=== PATIENT | female | born 1995 | race Caucasian/White ===

== ENCOUNTER → 2018-08-22 10:13 | Outpatient (CLI) | payer BC, SELFPAY ==
--- NOTE | 2018-08-22 11:04 | US_ITS ---
US OB transvaginal: INDICATION: Early OB for dates ITS.REASON: US OB Dates ORDERING PHYSICIAN: Jyoti Anderson MD PATIENT AGE: 22 years TECHNIQUE: Transvaginal pelvic ultrasound/cc COMPARISON: No previous relevant studies. FINDINGS: Difficult imaging due to body habitus Single viable intrauterine gestation. .. pole identified with heart rate = 110 at this point. Yolk Sac is identified along with small early gestation. suggestion of a minimal minimal subchorionic fluid collection, hematoma adjacent to the gestational sac. This hypoechoic fluid collection area measuring up to 2.5 cm length X 1.9 centimeter AP x 1 cm. . [place]-rump length = 0.71 = 6 weeks 5 day. Heart rate = 110 bpm. Documented Right ovary: 3 cm x 2.2 x 2.6 cm Left ovary not seen with transvaginal scanning but visualized with transabdominal scanning: Measures 3.9 cm x 3.2 x 2.5 cm. IMPRESSION ... Single viable intrauterine gestation. ... 6 week 5 day [place]-rump length /Average Ultrasound Age ... Hypoechoic fluid collection overlying this gestational sac, most consistent with a prior subchorionic hemorrhage Technologist noted technically difficult study due to body habitus
== END ==
PROVIDERS: PCP Family Medicine; Visit Provider Obstetrics & Gynecology
DX: O26.841 Uterine size-date discrepancy, first trimester (principal)
CPT/HCPCS: 76817

== ENCOUNTER → 2018-09-11 12:52 | Outpatient (CLI) | payer BC, SELFPAY ==
[2018-09-11 13:59] LABS: Basophils % 0.3 % (0.1-2.0); Eosinophils # 0.2 K/mm3 (0.0-0.4); Eosinophils % 2.3 % (0.1-12.0); Hematocrit 37.5 % (37.0-47.0); Hemoglobin 12.3 g/dL (12.2-16.2); Lymphocytes # 1.6 K/mm3 (0.7-4.5); Lymphocytes % 24.4 % (10-50); Mean Corpuscular HGB Conc 32.8 g/dL (31.8-35.4); Mean Corpuscular Hemoglobin 27.8 pg (27.0-31.2); Mean Corpuscular Volume 84.9 fl (81-99); Mean Platelet Volume 7.3 fl (7.4-10.4); Monocytes # 0.3 K/mm3 (0.1-1.0); Monocytes % 4.8 % (1.7-9.3); Neutrophils # 4.6 K/mm3 (1.8-7.8); Neutrophils % 68.3 % (37.0-80.0); Platelet Count 311 K/mm3 (142-424); Red Blood Count 4.41 M/mm3 (4.20-5.40); Red Cell Distribution Width 14.2 % (11.5-17.5); White Blood Count 6.8 K/mm3 (4.8-10.8)
[2018-09-12 06:13] LABS: HIV Screen 4th Generation wRfx Non Reactive (Non Reactive)
[2018-09-13 06:42] LABS: Hepatitis B Surface Antigen Negative (Negative); Hepatitis C Antibody <0.1 s/co ratio (0.0-0.9); Rubella Antibodies, IgG 2.14 index (Immune >0.99)
[2018-09-13 06:43] LABS: Rapid Plasma Reagin Ab Titer Non Reactive (NonRea<1:1)
== END ==
PROVIDERS: Visit Provider Obstetrics & Gynecology
DX: Z34.90 Encounter for supervision of normal pregnancy, unspecified, unspecified trimester (principal)
CPT/HCPCS: 36415; 85025; 86592; 86703; 86762; 86850; 87340; 87380; G0432

== ENCOUNTER → 2018-10-09 11:35 | Outpatient (CLI) | payer BC, SELFPAY | PROVIDERS: Visit Provider Obstetrics & Gynecology | DX: Z34.90 Encounter for supervision of normal pregnancy, unspecified, unspecified trimester (principal) | CPT/HCPCS: 36415 ==

== ENCOUNTER → 2018-11-27 14:20 | Outpatient (CLI) | payer BC, SELFPAY ==
--- NOTE | 2018-11-27 14:22 | US_ITS ---
US OB /maternal detail: INDICATION: ITS.REASON: US OB Complete ORDERING PHYSICIAN: Jyoti Anderson MD PATIENT AGE: 23 years TECHNIQUE: ultrasound transabdominal scanning. COMPARISON: No previous relevant studies. FINDINGS: Single viable intrauterine gestation. Breech position. Placenta: Anterior placenta grade 1. There is average amount fluid. The cervix appears satisfactory. Closed and measuring 3.5 cm in length. Complete survey performed and was unremarkable on the submitted images as in PACS. No discrete anomalies identified on survey imaging by technologist. Active fetus. Three-vessel cord with satisfactory umbilical cord insertion. 4- chamber heart noted. Survey of brain & ventricles unremarkable. Face and neck survey unremarkable. Diaphragm and chest views unremarkable. Abdomen: Both kidneys noted and unremarkable. Stomach noted and satisfactory. Spine: Survey of the spine satisfactory with no anomalies identified nor imaged. Both arms and legs noted. Amniotic Fluid: Adequate. Maternal adnexa: No significant findings. Measurements: Average ultrasound age 20 weeks 6 days. Gestational Age 20 weeks 5 days. Estimated due date by ultrasound age 1104/10/2019. Estimated weight 372 grams. BPD = 21 weeks 0 days OFD = 21 weeks 6 days HC = 20 weeks 5 days AC = 21 weeks 0 days FL = 20 weeks 4 days Growth Percentile= 44% Heart Rate = 147 Cerebellum = 20 weeks 5 days Humerus = 21 weeks 3 days HC/AC is 1.17. CI is 75%. FL/BPD is 67%. FL/AC is 21%. IMPRESSION: There is a single live fetus which is in breech presentation with an average ultrasound age of 20 weeks and 6 days. All parameters correlate with no obvious anomalies. Please see above for detail.
== END ==
PROVIDERS: PCP Physician Assistant; Visit Provider Obstetrics & Gynecology
DX: Z36.0 Encounter for antenatal screening for chromosomal anomalies (principal)
CPT/HCPCS: 76811

== ENCOUNTER → 2019-01-13 10:17 | Outpatient (CLI) | payer BC, SELFPAY ==
[2019-01-13 10:41] LABS: Glucose,Fasting 92 mg/dL (60-105)
[2019-01-13 13:42] LABS: Glucose 1 Hour 95 mg/dL (74-106)
== END ==
PROVIDERS: Visit Provider Obstetrics & Gynecology
DX: Z34.90 Encounter for supervision of normal pregnancy, unspecified, unspecified trimester (principal)
CPT/HCPCS: 36415; 82951

== ENCOUNTER → 2019-03-18 17:30 | Outpatient (CLI) | payer BC, SELFPAY | PROVIDERS: Visit Provider Obstetrics & Gynecology | DX: Z34.90 Encounter for supervision of normal pregnancy, unspecified, unspecified trimester (principal) | CPT/HCPCS: 86403 ==

== ENCOUNTER → 2019-03-24 14:01 | Outpatient (CLI) | payer BC, SELFPAY ==
--- NOTE | 2019-03-24 14:03 | US_ITS ---
PROCEDURE: US OB FOLLOW UP CLINICAL INDICATION: US OB Growth ANGIE- LGA Large for gestational age COMPARISON: OBFEMAT US OB /maternal detail from 11/27/2018 FINDINGS: There is a single live fetus which is in cephalic presentation. heart body motion noted. FHR is 146 BPM. Average ultrasound age is 37 weeks 4 days with an estimated weight of 3060 g. Which is 47 percentile. BPD 38 weeks 3 days, HC 38 weeks 3 days, AC 36 weeks 2 days, FL 37 weeks 0 days. All parameters correlate. The placenta is anterior and grade 2. ANGIE is 13 cm. IMPRESSION: Live IUP which is in cephalic presentation at 37 weeks 4 days with an estimated weight is 3060 g which is 47 percentile. Normal ANGIE of 12 cm. Anterior grade 2 placenta Dictated by: Ernie Remy MD 03/24/2019 16:55 Electronically signed by Ernie Remy MD in [place] 03/24/2019 16:55
== END ==
PROVIDERS: PCP Family Medicine; Visit Provider Obstetrics & Gynecology
DX: O36.60X0 Maternal care for excessive fetal growth, unspecified trimester, not applicable or unspecified (principal)
CPT/HCPCS: 76816

== ENCOUNTER 2019-04-06 06:13 | Inpatient (IN) ==
[2019-04-06 06:51] LABS: Basophils % 0.4 % (0.1-2.0); Eosinophils # 0.1 K/mm3 (0.0-0.4); Eosinophils % 0.9 % (0.1-12.0); Hematocrit 34.4 % (37.0-47.0); Hemoglobin 10.6 g/dL (12.2-16.2); Lymphocytes # 1.8 K/mm3 (0.7-4.5); Lymphocytes % 21.2 % (10-50); Mean Corpuscular HGB Conc 30.9 g/dL (31.8-35.4); Mean Corpuscular Volume 80.6 fl (81-99); Mean Platelet Volume 9.5 fl (7.4-10.4); Monocytes # 0.4 K/mm3 (0.1-1.0); Monocytes % 4.9 % (1.7-9.3); Neutrophils # 6.3 K/mm3 (1.8-7.8); Neutrophils % 72.6 % (37.0-80.0); Platelet Count 289 K/mm3 (142-424); Red Blood Count 4.27 M/mm3 (4.20-5.40); Red Cell Distribution Width 16.3 % (11.5-17.5); White Blood Count 8.6 K/mm3 (4.8-10.8)
[2019-04-06 06:58] LABS: Calcium 8.9 mg/dL (8.5-10.1)
--- NOTE | 2019-04-06 07:25 | Progress Note ---
[facility] Anesthesia Checklist - Structural Data Admitted From: Inpatient Planned Operative Procedure/s: c/section Consent for Planned Operative Procedure(s) Verified: Yes - Airway Assessment C-Spine Mobility Assessed: Yes TMJ Mobility Assessed: Yes Dentition: Good Dentition - Neurological Assessment Level of Consciousness: Awake, Alert, Appropriate - Anesthesia Plan Anesthesia Risk discussed: Yes Anesthesia Plan: Verified ASA Class: III Anesthesia Type: Spinal [facility] History I have reviewed the patient's past medical history: Yes Medical History: Reports:: Anxiety, Depression *Have you ever received a pneumonia vaccine?: No *Have you received a flu vaccine this season?: Yes Other Medical History: Reports: Hypothyroidism, Other Anesthesia experience/problems:: none Other Surgeries: Yes: Amputation: No Fractures: No - *Social History Smoking Status: Former smoker Alcohol Intake: never Alcohol Intake Frequency:: holidays/special occasions only Substance Use Type: denies use *Occupational Status:: unemployed, student Housing: house Household Members: family *Travel in the last 8 weeks: Inside the [place] - Psychiatric History Pschychiatric History:: Reports:: Anxiety, Depression, Post Traumatic Stress Disorder Family Hx:: Cancer, Diabetes, Hypertension, Asthma, Anemia
[2019-04-06 08:16] LABS: Microscopic, Urine URINE MICROSCOPIC (MICROSCOPIC)
[2019-04-06 08:19] LABS: Appearance,Urine CLEAR (Clear); Bilirubin,Urine Negative (Negative); Blood, Urine Negative (Negative); Color,Urine YELLOW (Yellow); Glucose,Urine (UA) Negative (Negative); Ketones,Urine 1+ (Negative); Leukocyte Esterase,Urine Negative (Negative); PH,Urine 7.5 (5.0-8.5); Protein,Urine Negative (Negative); Urobilinogen,Urine 0.2 EU/dl (0.2)
[2019-04-06 08:27] LABS: Amphetamine/Metha Screen,Urine Negative ng/mL (<1000); Barbiturates Screen,Urine Negative ng/mL (<200); Benzodiazepines Screen,Urine Negative ng/mL (<200); Cannabinoid Screen,Urine Negative ng/mL (<50); Cocaine Screen,Urine Negative ng/mL (<300); Methadone Screen,Urine Negative ng/mL (<300); Opiate Screen,Urine Negative ng/mL (<300); Phencyclidine Screen,Urine Negative ng/mL (<25)
[2019-04-06 08:32] LABS: Bacteria,Urine 1+ /lpf; Mucus,Urine 2+ /lpf; WBC,Urine Occasional #/hpf (0-3)
--- NOTE | 2019-04-06 09:07 | Progress Note ---
[facility] Anesthesia Record Part I Intake, IV Amount: 1,500 Estimated blood loss (mL): 700 Urine output (mL): 400 Blood Pressure: 95/54 SaO2: 99 Pulse Rate: 83 Respiratory Rate: 12 Temperature: 97.5 F Patient is:: Awake, Stable Stable to PACU at:: 09:00
--- NOTE | 2019-04-06 09:08 | Operative Note ---
Date of procedure: 04/06/19 Pre-op Diagnosis:: 1. 39 wk gestation 2. Previous CS 3. Maternal Obesity 4. Undesired fertility Post-op Diagnosis:: 1. 39 wk gestation 2. Previous CS 3. Maternal Obesity 4. Undesired fertility Procedure performed:: 1. Repeat Low Transverse C Section 2. Bilateral tubal ligation Surgeon:: Jyoti Anderson MD Frame Fixer(s):: Arely Walsh RN HYDRODYNAMICS TEACHER:: Catarino Hickey Anesthesia: spinal Estimated blood loss (mL): 700 Operative findings:: Vigorous liveborn male infant with apgars 8 & 9 Nuchal cord x 1 Grossly normal uterus, ovaries and fallopian tubes Operative note:: The patient was taken to the OR and spinal was administered without difficulty. She was prepped and draped in normal sterile fashion. A pfannenstiel skin incision was made with the scalpel and carried down to the fascia. The fascia was incised in the midline and sharply dissected off the rectus muscles. The muscles were in the midline and the peritoneum was entered sharply and extended bluntly. The To-O self retaining retractor was placed in the abdomen and a bladder flap was created. The uterus was incised in the lower uterine segment in a transverse fashion and extended bluntly. Amniotomy was performed and clear fluid noted. The infant was delivered in controlled fashion, without complication or shoulder dystocia. The infant was vigorous at and handed to awaiting pediatricians for evaluation after cord clamped and cut. Cord blood was collected and a cord segment was preserved. The placenta was manually extracted and noted to be intact. The uterus was repaired with 0- vicryl in a running/locked fashion. The fallopian tubes were sequentially gra sped with a terrence, elevated and a large knuckle of tube tied off. The knuckle portion was excised and the ends of the remaining tube segments cauterized. The peritoneum was closed with 2-0 vicryl in a running fashion. The fascia was closed with #1 vicryl in a running fashion. The subcutaneous fat was closed with 2-0 vicryl in an interrupted fashion. The skin was closed with rocío. The patient tolerated the procedure well. Sponge, lap, needle and instrument counts were correct x 2. She was taken to PACU awake and in stable condition. Condition: stable Disposition: PACU Specimens:: segments bilateral fallopian tubes Complications:: None
--- NOTE | 2019-04-06 09:08 | Progress Note ---
[facility] Anesthesia Record Part II Discharge Time: 09:30 Destination: Obstetric PACU nurse assessment reviewed?: Yes Patient Condition:: Good Anesthesia Complications:: None Swallowing reflex intact?: Yes Cyanosis?: No
--- NOTE | 2019-04-06 10:07 | Pharmacy Consult Notes ---
[facility] Pharmacy VTE Monitoring - Patient Demographics Admission date: 04/06/19 Report Date: 04/06/19 Time: 10:07 Allergies/Adverse Reactions: Patient Allergies No Known Allergies Allergy (Verified 03/26/19 14:29) Height: 1.52 m Weight: 137.892 kg Patient Problems: Current Active Problems 39 weeks gestation of (Acute) Obesity complicating (Acute) Request for sterilization (Acute) Previous section (Acute) - VTE Risk Labs: VTE Related Lab Results Hgb 10.6 g/dL (12.2-16.2) L 04/06/19 06:35 Hct 34.4 % (37.0-47.0) L 04/06/19 06:35 Plt Count 289 K/mm3 (142-424) 04/06/19 06:35 BUN 7 mg/dL (7-18) 04/06/19 06:35 Creatinine 0.47 mg/dL (0.55-1.02) L 04/06/19 06:35 Estimated Creat Clear 135 mL/min (50-200) 04/06/19 06:35 - Prophylaxis VTE Prophylaxis Ordered?: Yes Types of VTE Prophylaxis: IPCS Thigh High Location of Applied Device: Bilateral Lower Extremeties
[2019-04-07 06:47] LABS: Basophils % 0.3 % (0.1-2.0); Eosinophils # 0.2 K/mm3 (0.0-0.4); Eosinophils % 1.6 % (0.1-12.0); Hematocrit 34.1 % (37.0-47.0); Hemoglobin 10.5 g/dL (12.2-16.2); Lymphocytes # 1.9 K/mm3 (0.7-4.5); Lymphocytes % 19.8 % (10-50); Mean Corpuscular HGB Conc 30.8 g/dL (31.8-35.4); Mean Corpuscular Volume 81.2 fl (81-99); Mean Platelet Volume 9.9 fl (7.4-10.4); Monocytes # 0.6 K/mm3 (0.1-1.0); Monocytes % 6.2 % (1.7-9.3); Neutrophils # 6.7 K/mm3 (1.8-7.8); Platelet Count 274 K/mm3 (142-424); Red Blood Count 4.21 M/mm3 (4.20-5.40); Red Cell Distribution Width 16.6 % (11.5-17.5); White Blood Count 9.4 K/mm3 (4.8-10.8)
--- NOTE | 2019-04-07 12:10 | Progress Note ---
Internal Medicine - PN: Subj *Date: 04/07/19 *Time: 12:08 Interval history: She is 1 day post section. She is feeling well. Her lochia is normal. Her pain is well controlled Exam Vital signs and Labs for Last 24 Hours: Temp Pulse Resp BP Pulse Ox 97.7 F 90 17 114/54 L 100 04/06/19 09:50 04/06/19 09:50 04/06/19 09:50 04/06/19 09:50 04/06/19 09:50 Laboratory Results - last 24 hr 04/07/19 06:15: WBC 9.4, RBC 4.21, Hgb 10.5 L, Hct 34.1 L, MCV 81.2, MCH 25.0 L, MCHC 30.8 L, RDW 16.6, Plt Count 274, MPV 9.9, Neut % (Auto) 72.0, Lymph % (Auto) 19.8, [place] % (Auto) 6.2, Eos % (Auto) 1.6, Baso % (Auto) 0.3, Neut # (Auto) 6.7, Lymph # (Auto) 1.9, [place] # (Auto) 0.6, Eos # (Auto) 0.2, Baso # ( Auto) 0.0 I & O for Last 24 hours: Intake & Output 04/05/19 04/06/19 04/07/19 04/08/19 11:59 11:59 11:59 11:59 Intake Total 1500 / 1500 Output Total 1150 / 1150 Balance 1500 / 1500 -1150 / -1150 Weight 304 lb - Constitutional no acute distress Assessment and Plan (1) delivery delivered Current visit: Yes Status: Acute Category: Medical Code(s): O82 - Encounter for delivery without indication (2) Previous section Problem details: x2 Current visit: Yes Status: Acute Category: Surgical Code(s): Z98.891 - History of uterine scar from previous surgery - Assessment and plan all Dx Assessment and Plan for all problems:: She is 1 day post section. She is doing well. She will be discharged home in 2 days time.
--- NOTE | 2019-04-08 23:00 | Progress Note ---
Internal Medicine - PN: Subj *Date: 04/08/19 *Time: 12:57 Interval history: POD #2 repeat CS & BTL No complaints Tolerating regular diet Ambulating and voiding without difficulty Lochia less than menses Exam Vital signs and Labs for Last 24 Hours: Temp Pulse Resp BP Pulse Ox 97.7 F 90 17 114/54 L 100 04/06/19 09:50 04/06/19 09:50 04/06/19 09:50 04/06/19 09:50 04/06/19 09:50 I & O for Last 24 hours: Intake & Output 04/06/19 04/07/19 04/08/19 04/09/19 11:59 11:59 11:59 11:59 Intake Total 1500 / 1500 Output Total 1150 / 1150 Balance 1500 / 1500 -1150 / -1150 Weight 304 lb Narrative: CONSTITUTIONAL: no acute distress HEENT: mucous membranes moist PULMONARY: breathing unlabored without audible wheezes CV: no tachycardia or visible JVD; normal LE peripheral pulses ABD: soft, ND; appropriately tender but no rebound/guarding : fundus firm at/below umbilicus SKIN: incision well approximated with no drainage, erythema or induration EXT: 1+ edema LEs NEURO: alert/oriented, no altered mental status PSYCH: appropriate mood and demeanor without anxiety/depression Assessment and Plan (1) delivery delivered Current visit: Yes Status: Acute Category: Medical Code(s): O82 - Encounter for delivery without indication (2) Previous section Problem details: x2 Current visit: Yes Status: Acute Category: Surgical Code(s): Z98.891 - History of uterine scar from previous surgery - Assessment and plan all Dx Assessment and Plan for all problems:: Postop progress as expected Anticipatedischarge home tomorrow
[2019-04-09 09:58] VITALS: BP 120/72
--- NOTE | 2019-04-09 10:25 | Discharge Summary ---
General - General Admission date:: 04/06/19 Discharge date: 04/09/19 HPI HPI: Elective repeat CS at 39 wks Bilateral tubal ligation done concurrently Postop/ course uneventful She is discharged home on POD #3 in stable condition She is tolerating a regular diet, ambulating and voiding without difficulty She will return to OB triage on POD # 5 for staple removal Hospital Course Hospital Course: see HPI Rhogam Administration: Not Indicated Objective Vital signs: Temp Pulse Resp BP Pulse Ox 98.6 F 80 18 120/72 100 04/09/19 09:00 04/09/19 09:00 04/09/19 09:00 04/09/19 09:00 04/06/19 09:50 Narrative: CONSTITUTIONAL: no acute distress HEENT: mucous membranes moist PULMONARY: breathing unlabored without audible wheezes CV: no tachycardia or visible JVD; normal LE peripheral pulses ABD: soft, ND; appropriately tender but no rebound/guarding : fundus firm at/below umbilicus SKIN: incision well approximated with no drainage, erythema or induration EXT: 1+ edema LEs NEURO: alert/oriented, no altered mental status PSYCH: appropriate mood and demeanor without anxiety/depression DS: Diagnosis - Discharge Diagnosis (1) delivery delivered Status: Acute (2) Previous section Status: Acute Problem details: x2 (3) Request for sterilization Status: Acute Problem details: desires BTL with repeat CS Sterilization consent signed 02/06/19 Discharge Plan - Patient Discharge Instructions ACTIVITY: Limited activity DIET: regular diet Additional Instructions: NO DRIVING IF TAKING PRESCRIPTION PAIN MEDICATION NO HEAVY LIFTING OR STRENUOUS ACTIVITY NOTHING IN VAGINA FOR [address]KS FOLLOW-UP WITH DR. HARRIS 04/22/2019 @ 1:45 Patient Instructions: How to Care for a Surgical Wound, Depression, Hemorrhage, [facility] Post Discharge Instructions - Follow up Plan Disposition: Home, Self-Assisted Medications: Home Medications Medication Instructions Recorded Confirmed Type Vit Calc,Iron,Folic [Kpn] 1 tab PO DAILY 04/06/19 04/06/19 History Ibuprofen [Motrin 400mg 800 mg PO Q6HP PRN #30 tab 04/09/19 Rx tablet] Oxycodone HCl [OxyIR 5mg tablet] 5 mg PO Q4HP PRN #30 tab 04/09/19 Rx Prescriptions/Medication Reconciliation: New Oxycodone HCl [OxyIR 5mg tablet] 5 mg PO Q4HP PRN #30 tab PRN Reason: Moderate To Severe Pain Ibuprofen [Motrin 400mg tablet] 800 mg PO Q6HP PRN #30 tab PRN Reason: Mild To Moderate Pain Continued Vit Calc,Iron,Folic [Kpn] 1 tab PO DAILY - Problem Reconciliation Problems Reviewed?: Yes
== END 2019-04-09 11:30 | disposition home or self-care (01) | DRG 785 ==
LOC: OB 06:13
PROVIDERS: ADMIT Obstetrics & Gynecology; ATTEND Obstetrics & Gynecology

== ENCOUNTER 2020-01-21 12:28 | Observation (INO) | payer BC, SELFPAY ==
[2020-01-21] VITALS (31 sets, daily range): BP systolic 121–154; BP diastolic 63–87; PULSE 99–123; RESP 17–20; TEMP 36.2–37.2; O2SAT 98–100; BMI 47.3
[2020-01-21 10:50] LABS: Basophils % 0.7 % (0.1-2.0); Eosinophils # 0.2 K/mm3 (0.0-0.4); Eosinophils % 3.2 % (0.1-12.0); Lymphocytes # 1.3 K/mm3 (0.7-4.5); Mean Corpuscular HGB Conc 27.4 g/dL (31.8-35.4); Mean Corpuscular Hemoglobin 17.6 pg (27.0-31.2); Mean Corpuscular Volume 64.3 fl (81-99); Mean Platelet Volume 8.7 fl (7.4-10.4); Monocytes # 0.2 K/mm3 (0.1-1.0); Monocytes % 4.9 % (1.7-9.3); Neutrophils # 3.2 K/mm3 (1.8-7.8); Neutrophils % 65.3 % (37.0-80.0); Platelet Count 469 K/mm3 (142-424); Red Blood Count 2.75 M/mm3 (4.20-5.40); Red Cell Distribution Width 18.1 % (11.5-17.5); White Blood Count 4.9 K/mm3 (4.8-10.8)
[2020-01-21 10:55] LABS: Hemoglobin 4.9 g/dL (12.2-16.2)
[2020-01-21 10:56] LABS: Hematocrit 17.7 % (37.0-47.0)
[2020-01-21 11:10] LABS: Alanine Aminotransferase 16 U/L (12-78); Albumin Level 3.8 g/dl (3.5-5.0); Alkaline Phosphatase 97 U/L (38-126); Anion Gap 13.4 mEq/L (5-15); Aspartate Amino Transferase 21 U/L (14-36); Bilirubin,Direct 0.1 mg/dl (0.0-0.4); Bilirubin,Indirect 0.2 mg/dL (0.0-0.9); Bilirubin,Total 0.3 mg/dl (0.2-1.3); Bilirubin,Unconjugated 0.2 mg/dL (0.0-1.1); Blood Urea Nitrogen 11 mg/dl (7-17); Calcium 8.8 mg/dl (8.4-10.2); Carbon Dioxide 24 mmol/L (22.0-30.0); Chloride 103 mmol/L (98-107); Chol/HDL Ratio 2.9 (1-3.5); Cholesterol 168 mg/dl (140-200); Estimated Glomerular Filt Rate 153 ml/min (>60); GFR (African American) 185 ML/MIN (>60); Glucose 95 mg/dl (74-100); HDL Cholesterol 57 mg/dl (40-60); Potassium 4.4 mmoL/L (3.5-5.1); Sodium 136 mmol/L (136-145); Triglycerides 89 mg/dl (30-150); VLDL Cholesterol 18 mg/dL (0-40)
[2020-01-21 11:21] LABS: Direct LDL Cholesterol 94.99 mg/dL (100-129)
[2020-01-21 11:27] LABS: Free T4 (Free Thyroxine) 1.17 ng/dl (0.78-2.19)
[2020-01-21 11:40] LABS: Thyroid Stimulating Hormone 2.67 uIU/mL (0.465-4.68)
--- NOTE | 2020-01-21 13:03 | HMH.HP ---
*Admission Date: 01/21/20 *Chief complaint: anemia *History of present illness: 24 yo female, direct admission for severe anemia Patient has a known recent history of heavy menstrual bleeding and had been seen for this complaint in November Pelvic ultrasound and labs were ordered as part of evaluation but patient did not show up for appointment She was also given Rx for provera to use for acute cessation of heavy bleeding, which was successful She was subsequently seen in cardiology office today for complaint of tachycardia She was given Rx for beta kellen and echocardiogram scheduled for tomorrow labs were drawn and Hgb noted to be extremely low 4.9 she was subsequently sent up to utility service worker office for management Not currently bleeding Menses have been extremely heavy since she stopped breast feeding In past months she has been feeling extremely fatigued with occasional shortness of breath, but denies chest pain [facility] History I have reviewed the patient's past medical history: Yes Medical History: Reports:: Anxiety, Depression, Palpitations *Have you ever received a pneumonia vaccine?: No *Have you received a flu vaccine this season?: No Other Medical History: Reports: Hypothyroidism, Other Other Surgeries: Yes: Amputation: No Fractures: No - *Social History Smoking Status: Never smoker Alcohol Intake: never Alcohol Intake Frequency:: holidays/special occasions only Substance Use Type: denies use *Occupational Status:: other Housing: house Household Members: family *Travel in the last 8 weeks: None - Psychiatric History Pschychiatric History:: Reports:: Anxiety, Depression, Post Traumatic Stress Disorder Family Hx:: Cancer, Diabetes, Hypertension, Asthma, Anemia Review of Systems - Constitutional Reports fatigue, Reports lack of energy - Eyes Denies blurry vision - ENT Reports dizziness - *Cardiovascular Reports shortness of breath with activity, Denies chest pain - *Respiratory Reports shortness of breath, Denies cough - *Gastrointestinal Denies abdominal pain, Denies bright, red blood in stools, Denies black, tarry stools - *Genitourinary Reports abnormal periods, Reports heavy periods - *Musculoskeletal Denies muscle cramps, Denies muscle weakness - Integumentary/Breasts Denies rash - *Neurologic Denies loss of vision - Psychiatric Denies anxiety, Denies depression - Endocrine Reports rapid, pounding, or irregular heartbeat - Hematologic/Lymphatic Denies easy bleeding, Denies easy bruising Meds Home Medications Medication Instructions Recorded Confirmed Type metoprolol succinate 50 mg 50 mg PO DAILY #30 tab 01/19/20 01/19/20 Rx tablet,extended release 24 hr Allergies Allergy/AdvReac Type Severity Reaction Status Date / Time oxycodone Allergy Mild rash Verified 01/21/20 11:44 Exam Vital signs and Labs for Last 24 Hours: Laboratory Results - last 24 hr 01/21/20 09:31: WBC 4.9, RBC 2.75 L, Hgb 4.9 L*, Hct 17.7 L*, MCV 64.3 L, MCH 17.6 L, MCHC 27.4 L, RDW 18.1 H, Plt Count 469 H, MPV 8.7, Neut % (Auto) 65.3, Lymph % (Auto) 26.0, [place] % (Auto) 4.9, Eos % (Auto) 3.2, Baso % (Auto) 0.7, Neut # (Auto) 3.2, Lymph # (Auto) 1.3, [place] # (Auto) 0.2, Eos # (Auto) 0.2, Baso # (Auto) 0.0 01/21/20 09:31: Sodium 136, Potassium 4.4, Chloride 103, Carbon Dioxide 24, Anion Gap 13.4, BUN 11, Creatinine 0.50 L, Estimated GFR 153, Est GFR ( Amer) 185, Glucose 95, Calcium 8.8, Total Bilirubin 0.3, Direct Bilirubin 0.1, Conjugated Bilirubin 0.0, Indirect Bilirubin 0.2, Unconjugated Bilirubin 0.2, AST 21, ALT 16, Alkaline Phosphatase 97, Total Protein 7.0, Albumin 3.8, Triglycerides 89, Cholesterol 168, LDL Cholesterol Direct 94.99 L, VLDL Cholesterol 18, HDL Cholesterol 57, Cholesterol/HDL Ratio 2.9, TSH 2.67 01/21/20 09:31: Free T4 1.17 - Constitutional no acute distress - *Routine HEENT Exam Head: Present: normocephalic, atraumatic Eye: Present: EOMI ENT: Present: mucous membr
[2020-01-21 13:37] LABS: Coronavirus 19 IgG Antibody Negative (Negative); Coronavirus 19 IgM Antibody Negative (Negative)
[2020-01-21 14:38] LABS: Hematocrit 18.9 % (37.0-47.0); Hemoglobin 5.2 g/dL (12.2-16.2)
[2020-01-21 19:01] LABS: Hematocrit 24.1 % (37.0-47.0)
--- NOTE | 2020-01-21 19:17 | PC.NURSE ---
report given to geno abreu rn
[2020-01-21 19:35] LABS: Hemoglobin 7.4 g/dL (12.2-16.2)
--- NOTE | 2020-01-21 22:01 | PC.NURSE ---
Currently receiving 3rd unit PRBC's for severe anemia.
--- NOTE | 2020-01-21 23:52 | PC.NURSE ---
PRESLEY CHAU AT TO DRAW 1HR POST HH
[2020-01-22 00:06] LABS: Hematocrit 27.8 % (37.0-47.0); Hemoglobin 8.9 g/dL (12.2-16.2)
[2020-01-22 00:43] VITALS: BP 136/74; PULSE 100; RESP 18; TEMP 36.4; O2SAT 100
[2020-01-22 06:36] VITALS: BP 137/86; PULSE 95; RESP 18
[2020-01-22 06:37] LABS: Hematocrit 27.8 % (37.0-47.0); Hemoglobin 8.4 g/dL (12.2-16.2)
[2020-01-22 08:00] VITALS: BP 140/82; PULSE 112; RESP 20; TEMP 37.1; O2SAT 99
--- NOTE | 2020-01-22 08:00 | US_ITS ---
PROCEDURE: US TRANSVAGINAL CLINICAL INDICATION: anemia related to vaginal bleeding COMPARISON: US OBTV US OB transvaginal from 08/22/2018 FINDINGS: UTERUS: 10cm x 6cmx 5cm with a combined endometrial thickness of 12 mm LEFT OVARY: [id number] with a volume of 13.8ml. RIGHT OVARY: [id number] with a volume of 10.6ml. There are small bilateral ovarian follicles. No cul-de-sac fluid apparent. IMPRESSION: Endometrial thickness upper limits of normal with uterine size upper normal otherwise negative pelvic ultrasound Dictated by: Ernie Remy MD 01/22/2020 10:22 Ernie Remy MD in [place] 01/22/2020 10:22
--- NOTE | 2020-01-22 08:39 | HMH.PHAVTE ---
[facility] Pharmacy VTE Monitoring - Patient Demographics Admission date: 01/22/20 Report Date: 01/22/20 Time: 08:39 Allergies/Adverse Reactions: Patient Allergies oxycodone Allergy (Mild, Verified 01/21/20 11:44) rash Height: 1.63 m Weight: 125.191 kg Patient Problems: Current Active Problems Anemia due to chronic blood loss (Acute) Dyspnea on exertion (Acute) - VTE Risk Labs: VTE Related Lab Results Hgb 8.4 g/dL (12.2-16.2) L 01/22/20 06:08 Hct 27.8 % (37.0-47.0) L 01/22/20 06:08 Plt Count 469 K/mm3 (142-424) H 01/21/20 09:31 BUN 11 mg/dl (7-17) 01/21/20 09:31 Creatinine 0.50 mg/dl (0.52-1.04) L 01/21/20 09:31 Was VTE Risk Assessment Performed: Yes VTE Score: 1 VTE Risk Level: Low Risk - Prophylaxis Types of VTE Prophylaxis: TEDS Knee High (SARY HOSE ORDER PLACED)
--- NOTE | 2020-01-22 08:45 | PC.NURSE ---
0715 report recieved from geno abreu rn
[2020-01-22 08:48] VITALS: O2SAT 99
--- NOTE | 2020-01-22 09:43 | PC.NURSE ---
0935 OFF FLOOR TO U/S AT THIS TIME VIA WHEELCHAIR. REPORT GIVEN TO SHANTEL PORTER.
--- NOTE | 2020-01-22 10:05 | PC.NURSE ---
BACK FROM U/S AT THIS TIME. BACK TO BED.
--- NOTE | 2020-01-22 10:35 | HMH.OBDCSM ---
General - General Admission date:: 01/21/20 Discharge date: 01/22/20 HPI - History of Present Illness History of present illness: Menorrhagia and DUB with subsequent severe anemia Admitted with Hgb 4.9 Transfusion of 3 units packed red cells, with post-transfusion Hgb 8.9 No current vaginal bleeding Missed appt for previous ordered pelvic ultrasound, which was performed today while admitted No complaints; feeling much better Objective Vital signs: Temp Pulse Resp BP Pulse Ox 98.7 F 112 H 20 140/82 99 01/22/20 08:00 01/22/20 08:00 01/22/20 08:00 01/22/20 08:00 01/22/20 08:48 Narrative: CONSTITUTIONAL: no acute distress HEENT: mucous membranes moist PULMONARY: breathing unlabored without audible wheezes CV: normal LE peripheral pulses ABD: soft, NT/ND, no guarding : deferred SKIN: no visible rash or lesions EXT: no edema LEs NEURO: alert/oriented, no altered mental status PSYCH: appropriate mood and demeanor without anxiety/depression Results Labs on day of discharge: Labs from last 24 hours 01/22/20 01/21/20 01/21/20 06:08 23:40 18:48 WBC RBC Hgb 8.4 L 8.9 L D 7.4 L* D Hct 27.8 L 27.8 L 24.1 L MCV MCH MCHC RDW Plt Count MPV Neut % (Auto) Lymph % (Auto) [place] % (Auto) Eos % (Auto) Baso % (Auto) Neut # (Auto) Lymph # (Auto) [place] # (Auto) Eos # (Auto) Baso # (Auto) Sodium Potassium Chloride Carbon Dioxide Anion Gap BUN Creatinine Estimated GFR Est GFR ( Amer) Glucose Calcium Total Bilirubin Direct Bilirubin Conjugated Bilirubin Indirect Bilirubin Unconjugated Bilirubin AST ALT Alkaline Phosphatase Total Protein Albumin Triglycerides Cholesterol LDL Cholesterol Direct VLDL Cholesterol HDL Cholesterol Cholesterol/HDL Ratio TSH Free T4 SARS-CoV-2 IgG Ab (Rapid) SARS-CoV-2 IgM Ab (Rapid) Blood Type Antibody Screen Crossmatch (AHG) 01/21/20 01/21/20 01/21/20 12:52 12:52 12:52 WBC RBC Hgb 5.2 L* Hct 18.9 L* MCV MCH MCHC RDW Plt Count MPV Neut % (Auto) Lymph % (Auto) [place] % (Auto) Eos % (Auto) Baso % (Auto) Neut # (Auto) Lymph # (Auto) [place] # (Auto) Eos # (Auto) Baso # (Auto) Sodium Potassium Chloride Carbon Dioxide Anion Gap BUN Creatinine Estimated GFR Est GFR ( Amer) Glucose Calcium Total Bilirubin Direct Bilirubin Conjugated Bilirubin Indirect Bilirubin Unconjugated Bilirubin AST ALT Alkaline Phosphatase Total Protein Albumin Triglycerides Cholesterol LDL Cholesterol Direct VLDL Cholesterol HDL Cholesterol Cholesterol/HDL Ratio TSH Free T4 SARS-CoV-2 IgG Ab (Rapid) Negative SARS-CoV-2 IgM Ab (Rapid) Negative Blood Type O Positive Antibody Screen Negative Crossmatch (AHG) See Detail 01/21/20 01/21/20 01/21/20 09:31 09:31 09:31 WBC 4.9 RBC 2.75 L Hgb 4.9 L* Hct 17.7 L* MCV 64.3 L MCH 17.6 L MCHC 27.4 L RDW 18.1 H Plt Count 469 H MPV 8.7 Neut % (Auto) 65.3 Lymph % (Auto) 26.0 [place] % (Auto) 4.9 Eos % (Auto) 3.2 Baso % (Auto) 0.7 Neut # (Auto) 3.2 Lymph # (Auto) 1.3 [place] # (Auto) 0.2 Eos # (Auto) 0.2 Baso # (Auto) 0.0 Sodium 136 Potassium 4.4 Chloride 103 Carbon Dioxide 24 Anion Gap 13.4 BUN 11 Creatinine 0.50 L Estimated GFR 153 Est GFR ( Amer) 185 Glucose 95 Calcium 8.8 Total Bilirubin 0.3 Direct Bilirubin 0.1 Conjugated Bilirubin 0.0 Indirect Bilirubin 0.2 Unconjugated Bilirubin 0.2 AST 21 ALT 16 Alkaline Phosphatase 97 Total Protein 7.0 Albumin 3.8 Triglycerides 89 Cholesterol 168 LDL Cholesterol Direct
== END 2020-01-22 11:00 | disposition home or self-care (01) ==
LOC: OB 01-22 09:50
PROVIDERS: Physician Assistant; Admitting Provider Obstetrics & Gynecology; Visit Provider Obstetrics & Gynecology
DX: R06.00 Dyspnea, unspecified (principal); E66.01 Morbid (severe) obesity due to excess calories; R00.0 Tachycardia, unspecified; R07.9 Chest pain, unspecified; R94.31 Abnormal electrocardiogram [ECG] [EKG]; N93.8 Other specified abnormal uterine and vaginal bleeding; N92.0 Excessive and frequent menstruation with regular cycle; D50.0 Iron deficiency anemia secondary to blood loss (chronic); Z68.41 Body mass index [BMI] 40.0-44.9, adult
CPT/HCPCS: 36430; 36415; 76830; 80048; 80061; 80076; 84439; 84443; 85014; 85018; 85025; 86328; 86850; 94761; G0378; P9016

== ENCOUNTER → 2020-02-02 15:33 | Outpatient (CLI) | payer BC, SELFPAY ==
[2020-02-02 15:49] LABS: Basophils % 0.5 % (0.1-2.0); Eosinophils # 0.2 K/mm3 (0.0-0.4); Eosinophils % 2.7 % (0.1-12.0); Hematocrit 31.6 % (37.0-47.0); Hemoglobin 9.6 g/dL (12.2-16.2); Lymphocytes # 2.1 K/mm3 (0.7-4.5); Lymphocytes % 26.6 % (10-50); Mean Corpuscular HGB Conc 30.4 g/dL (31.8-35.4); Mean Corpuscular Hemoglobin 22.3 pg (27.0-31.2); Mean Corpuscular Volume 73.2 fl (81-99); Mean Platelet Volume 8.6 fl (7.4-10.4); Monocytes # 0.4 K/mm3 (0.1-1.0); Monocytes % 5.2 % (1.7-9.3); Neutrophils # 5.1 K/mm3 (1.8-7.8); Platelet Count 486 K/mm3 (142-424); Red Blood Count 4.32 M/mm3 (4.20-5.40); Red Cell Distribution Width 21.4 % (11.5-17.5); White Blood Count 7.8 K/mm3 (4.8-10.8)
[2020-02-02 16:23] LABS: Anion Gap 15.1 mEq/L (5-15); Blood Urea Nitrogen 13 mg/dl (7-17); Calcium 9.6 mg/dl (8.4-10.2); Carbon Dioxide 27 mmol/L (22.0-30.0); Chloride 101 mmol/L (98-107); Estimated Glomerular Filt Rate 153 ml/min (>60); GFR (African American) 185 ML/MIN (>60); Glucose 104 mg/dl (74-100); Potassium 4.1 mmoL/L (3.5-5.1); Sodium 139 mmol/L (136-145)
[2020-02-02 17:29] LABS: Vitamin B12 793 pg/mL (239-931)
[2020-02-02 17:32] LABS: Folate 5.78 ng/mL
[2020-02-02 18:13] LABS: Iron 23 ug/dL (37-170)
[2020-02-02 18:23] LABS: Total Iron Binding Capacity 409 ug/dL (265-497)
[2020-02-02 18:50] LABS: Ferritin 8.47 ng/ml (6.24-137)
[2020-02-04 12:05] LABS: Transferrin 349 mg/dL (192-364)
== END ==
PROVIDERS: Visit Provider Nurse Practitioner Family
DX: D50.0 Iron deficiency anemia secondary to blood loss (chronic) (principal); R06.00 Dyspnea, unspecified; E66.01 Morbid (severe) obesity due to excess calories; R94.31 Abnormal electrocardiogram [ECG] [EKG]
CPT/HCPCS: 36415; 80048; 82607; 82728; 82746; 83540; 83550; 84466; 85025

== ENCOUNTER → 2020-08-01 10:02 | Outpatient (CLI) | payer BC, SELFPAY ==
[2020-08-01 10:38] LABS: Basophils % 0.4 % (0.1-2.0); Eosinophils # 0.2 K/mm3 (0.0-0.4); Eosinophils % 3.1 % (0.1-12.0); Hematocrit 39.8 % (37.0-47.0); Hemoglobin 12.4 g/dL (12.2-16.2); Lymphocytes # 1.7 K/mm3 (0.7-4.5); Lymphocytes % 26.3 % (10-50); Mean Corpuscular HGB Conc 31.3 g/dL (31.8-35.4); Monocytes # 0.3 K/mm3 (0.1-1.0); Monocytes % 5.4 % (1.7-9.3); Neutrophils # 4.1 K/mm3 (1.8-7.8); Neutrophils % 64.7 % (37.0-80.0); Platelet Count 306 K/mm3 (142-424); Red Blood Count 4.97 M/mm3 (4.20-5.40); Red Cell Distribution Width 16.8 % (11.5-17.5); White Blood Count 6.3 K/mm3 (4.8-10.8)
== END ==
PROVIDERS: Visit Provider Obstetrics & Gynecology
DX: D64.9 Anemia, unspecified (principal)
CPT/HCPCS: 36415; 85025

== ENCOUNTER → 2020-08-03 09:07 | Outpatient (CLI) | payer BC, SELFPAY ==
--- NOTE | 2020-08-03 09:08 | US_ITS ---
PROCEDURE: US TRANSVAGINAL CLINICAL INDICATION: US T/V- abnormal bleeding COMPARISON: US US TRANSVAGINAL from 01/22/2020 FINDINGS: UTERUS: 10cm x 7cmx 5cm with a combined endometrial thickness of 22.4mm LEFT OVARY: [id number] with a volume of 7.8ml. RIGHT OVARY: [id number] with a volume of 19.5ml. Multiple nabothian cysts are present. The endometrium is thickened with the thickness 2.2 cm. The uterus is somewhat bulky. There is a septated 3 cm right ovarian cyst and small left ovarian follicles are noted. No cul-de-sac fluid apparent. IMPRESSION: Bulky uterus with thickened endometrium at 2 cm. Dictated by: Ernie Remy MD 08/03/2020 18:39 Ernie Remy MD in OV 08/03/2020 18:39
== END ==
PROVIDERS: Visit Provider Obstetrics & Gynecology
DX: N93.9 Abnormal uterine and vaginal bleeding, unspecified (principal)
CPT/HCPCS: 76830

== ENCOUNTER → 2020-08-23 17:41 | Outpatient (CLI) | payer BC, SELFPAY ==
[2020-08-23 18:04] LABS: Basophils % 0.4 % (0.1-2.0); Eosinophils # 0.3 K/mm3 (0.0-0.4); Eosinophils % 2.8 % (0.1-12.0); Hematocrit 37.1 % (37.0-47.0); Lymphocytes # 2.2 K/mm3 (0.7-4.5); Lymphocytes % 22.8 % (10-50); Mean Corpuscular HGB Conc 32.2 g/dL (31.8-35.4); Mean Corpuscular Hemoglobin 26.2 pg (27.0-31.2); Mean Corpuscular Volume 81.4 fl (81-99); Monocytes # 0.5 K/mm3 (0.1-1.0); Monocytes % 4.9 % (1.7-9.3); Neutrophils # 6.6 K/mm3 (1.8-7.8); Neutrophils % 69.1 % (37.0-80.0); Platelet Count 329 K/mm3 (142-424); Red Blood Count 4.56 M/mm3 (4.20-5.40); Red Cell Distribution Width 16.4 % (11.5-17.5); White Blood Count 9.6 K/mm3 (4.8-10.8)
== END ==
PROVIDERS: Visit Provider Obstetrics & Gynecology
DX: D50.0 Iron deficiency anemia secondary to blood loss (chronic) (principal)
CPT/HCPCS: 36415; 85025

== ENCOUNTER → 2020-09-06 14:11 | Outpatient (CLI) | payer BC, SELFPAY ==
[2020-09-06 14:46] LABS: Basophils % 0.3 % (0.1-2.0); Eosinophils # 0.2 K/mm3 (0.0-0.4); Eosinophils % 1.7 % (0.1-12.0); Hematocrit 33.4 % (37.0-47.0); Hemoglobin 10.8 g/dL (12.2-16.2); Lymphocytes # 1.9 K/mm3 (0.7-4.5); Lymphocytes % 21.6 % (10-50); Mean Corpuscular HGB Conc 32.3 g/dL (31.8-35.4); Mean Corpuscular Hemoglobin 25.8 pg (27.0-31.2); Mean Corpuscular Volume 79.7 fl (81-99); Mean Platelet Volume 8.1 fl (7.4-10.4); Monocytes # 0.4 K/mm3 (0.1-1.0); Monocytes % 4.7 % (1.7-9.3); Neutrophils # 6.3 K/mm3 (1.8-7.8); Neutrophils % 71.8 % (37.0-80.0); Platelet Count 397 K/mm3 (142-424); Red Blood Count 4.19 M/mm3 (4.20-5.40); White Blood Count 8.8 K/mm3 (4.8-10.8)
[2020-09-06 15:44] LABS: Chloride 102 mmol/L (98-107); Potassium 4.3 mmoL/L (3.5-5.1); Sodium 137 mmol/L (136-145)
[2020-09-06 15:47] LABS: Alanine Aminotransferase 20 U/L (12-78); Albumin Level 4.2 g/dl (3.5-5.0); Albumin/Globulin Ratio 1.3 (1.1-1.8); Alkaline Phosphatase 127 U/L (38-126); Anion Gap 12.3 mEq/L (5-15); Aspartate Amino Transferase 25 U/L (14-36); Bilirubin,Total 0.4 mg/dl (0.2-1.3); Blood Urea Nitrogen 12 mg/dl (7-17); Calcium 9.4 mg/dl (8.4-10.2); Carbon Dioxide 27 mmol/L (22.0-30.0); Estimated Glomerular Filt Rate 124 ml/min (>60); GFR (African American) 150 ML/MIN (>60); Globulin 3.2 g/dL (1.3-3.2); Glucose 87 mg/dl (74-100); Total Protein,Serum 7.4 g/dl (6.3-8.2)
[2020-09-06 15:51] LABS: HCG Qualitative, Serum Negative (Negative)
[2020-09-06 16:20] LABS: Coronavirus 19 IgG Antibody Positive (Negative)
[2020-09-06 16:21] LABS: Coronavirus 19 IgM Antibody Positive (Negative)
== END ==
PROVIDERS: Visit Provider Obstetrics & Gynecology
DX: Z01.812 Encounter for preprocedural laboratory examination (principal); Z20.822 Contact with and (suspected) exposure to COVID-19; R93.89 Abnormal findings on diagnostic imaging of other specified body structures
CPT/HCPCS: 36415; 80053; 84703; 85025; 86328

== ENCOUNTER → 2020-11-24 13:22 | Outpatient (CLI) | payer BC, SELFPAY ==
[2020-11-24 14:25] LABS: Basophils % 0.4 % (0.1-2.0); Eosinophils # 0.2 K/mm3 (0.0-0.4); Eosinophils % 2.2 % (0.1-12.0); Hematocrit 29.9 % (37.0-47.0); Hemoglobin 9.4 g/dL (12.2-16.2); Lymphocytes # 1.9 K/mm3 (0.7-4.5); Lymphocytes % 26.5 % (10-50); Mean Corpuscular HGB Conc 31.5 g/dL (31.8-35.4); Mean Corpuscular Hemoglobin 22.8 pg (27.0-31.2); Mean Corpuscular Volume 72.6 fl (81-99); Mean Platelet Volume 8.4 fl (7.4-10.4); Monocytes # 0.4 K/mm3 (0.1-1.0); Monocytes % 4.9 % (1.7-9.3); Neutrophils # 4.7 K/mm3 (1.8-7.8); Platelet Count 391 K/mm3 (142-424); Red Blood Count 4.12 M/mm3 (4.20-5.40); Red Cell Distribution Width 16.4 % (11.5-17.5); White Blood Count 7.1 K/mm3 (4.8-10.8)
== END ==
PROVIDERS: Visit Provider Obstetrics & Gynecology
DX: N92.6 Irregular menstruation, unspecified (principal)
CPT/HCPCS: 36415; 85025

== ENCOUNTER → 2020-12-13 11:08 | Outpatient (CLI) | payer BC, SELFPAY ==
[2020-12-13 12:40] LABS: Chloride 106 mmol/L (98-107)
[2020-12-13 12:41] LABS: Potassium 4.3 mmoL/L (3.5-5.1); Sodium 139 mmol/L (136-145)
[2020-12-13 12:42] LABS: HCG Qualitative, Serum Negative (Negative)
[2020-12-13 12:43] LABS: Alanine Aminotransferase 17 U/L (12-78); Aspartate Amino Transferase 20 U/L (14-36); Blood Urea Nitrogen 10 mg/dl (7-17); Estimated Glomerular Filt Rate 123 ml/min (>60); GFR (African American) 149 ML/MIN (>60)
[2020-12-13 12:44] LABS: Albumin Level 4.1 g/dl (3.5-5.0); Albumin/Globulin Ratio 1.2 (1.1-1.8); Alkaline Phosphatase 97 U/L (38-126); Anion Gap 11.3 mEq/L (5-15); Bilirubin,Total 0.3 mg/dl (0.2-1.3); Carbon Dioxide 26 mmol/L (22.0-30.0); Globulin 3.3 g/dL (1.3-3.2); Glucose 100 mg/dl (74-100); Total Protein,Serum 7.4 g/dl (6.3-8.2)
[2020-12-13 13:21] LABS: Basophils % 0.3 % (0.1-2.0); Eosinophils # 0.2 K/mm3 (0.0-0.4); Eosinophils % 2.1 % (0.1-12.0); Hematocrit 30.4 % (37.0-47.0); Hemoglobin 8.3 g/dL (12.2-16.2); Lymphocytes # 1.8 K/mm3 (0.7-4.5); Lymphocytes % 22.7 % (10-50); Mean Corpuscular HGB Conc 27.2 g/dL (31.8-35.4); Mean Corpuscular Volume 73.4 fl (81-99); Mean Platelet Volume 7.2 fl (7.4-10.4); Monocytes # 0.3 K/mm3 (0.1-1.0); Monocytes % 3.8 % (1.7-9.3); Neutrophils # 5.5 K/mm3 (1.8-7.8); Platelet Count 389 K/mm3 (142-424); Red Blood Count 4.14 M/mm3 (4.20-5.40); White Blood Count 7.7 K/mm3 (4.8-10.8)
== END ==
PROVIDERS: Visit Provider Obstetrics & Gynecology
DX: Z34.90 Encounter for supervision of normal pregnancy, unspecified, unspecified trimester (principal)
CPT/HCPCS: 36415; 80053; 84703; 85025; U0003

== ENCOUNTER 2020-12-14 10:10 | Outpatient (CLI) | payer BC, SELFPAY ==
[2020-12-14] VITALS (18 sets, daily range): BP systolic 123–149; BP diastolic 65–91; PULSE 85–107; RESP 17–18; TEMP 36.2–36.9; O2SAT 17–100; BMI 53.8
--- NOTE | 2020-12-14 10:18 | PC.NURSE ---
KALEN Santos spoke with Enmanuel Leigh CMA in 's office who stated pt does not need at post H/H because they will be checking her labs before surgery tomorrow.
--- NOTE | 2020-12-14 12:00 | PC.NURSE ---
1200- first unit started at this time at 100ml/hr
--- NOTE | 2020-12-14 12:30 | PC.NURSE ---
1230- infusion rate increased to 150ml/hr at this time. pt tolerating infusion well
--- NOTE | 2020-12-14 13:00 | PC.NURSE ---
1300- pt infusion rate increased to 200 ml/hr
--- NOTE | 2020-12-14 14:00 | PC.NURSE ---
1400- pt infusion rate increased to 250ml/hr at this time. no complaints at this time
--- NOTE | 2020-12-14 15:05 | PC.NURSE ---
1508- this nurse assessed pts HR to be 105. on appearance pt is tapping her feet and fidgeting with her blanket. this nurse asked pt if she was okay. pt stated she was just anxious about her surgery tomorrow and recovery. pt denies any pain or complaints and stated this is normal for her and that is a very anxious individual
--- NOTE | 2020-12-14 15:20 | INFXCTL.NOTE ---
1520- pt infusion rate increased to 150 ml/hr
--- NOTE | 2020-12-14 16:54 | PC.NURSE ---
1245- pt infusion rate increased to 175ml/hr
--- NOTE | 2020-12-14 16:56 | PC.NURSE ---
1420- infusion complete at this time
== END 2020-12-14 17:27 | disposition home or self-care (01) ==
LOC: INF 10:10
PROVIDERS: Visit Provider Obstetrics & Gynecology
DX: D64.9 Anemia, unspecified (principal)
CPT/HCPCS: 36430; 86850; P9016

== ENCOUNTER 2020-12-15 12:29 | Inpatient (IN) | payer BC, SELFPAY ==
[2020-12-08 13:32] VITALS: BMI 55.6
[2020-12-15] VITALS (24 sets, daily range): BP systolic 118–150; BP diastolic 65–101; PULSE 79–115; RESP 11–18; TEMP 36.4–43; O2SAT 94–100
[2020-12-15 08:33] LABS: Hematocrit 37.9 % (37.0-47.0); Hemoglobin 11.8 g/dL (12.2-16.2)
--- NOTE | 2020-12-15 08:58 | P.PN_ITS ---
[facility] Anesthesia Checklist - Patient Identification Patient Identification: Arm Band - Structural Data Admitted From: Home Planned Operative Procedure/s: SHAJI/ BSO Consent for Planned Operative Procedure(s) Verified: Yes - NPO Status Verified Time NPO: 00:00 - Additional verifications Anesthesia Reactions: No Hx Blood Transfusions: Yes Blood Transfusion Reaction: No - Airway Assessment C-Spine Mobility Assessed: Yes TMJ Mobility Assessed: Yes Dentition: Good Dentition - Neurological Assessment Level of Consciousness: Awake Hx Seizures: No Numbness or tingling in extremities: No - Anesthesia Plan Anesthesia Risk discussed: Yes Anesthesia Plan: Verified ASA Class: III Anesthesia Type: General [facility] History I have reviewed the patient's past medical history: Yes Medical History: Reports:: Anxiety, Depression, Palpitations Denies:: Cancer, Diabetes Mellitus Type 1, Diabetes Mellitus Type 2, Internal Pacemaker, MRSA, Seizures *Have you ever received a pneumonia vaccine?: No *Have you received a flu vaccine this season?: No Other Medical History: Reports: Hypothyroidism, Other. Denies: Blood Transfusion Reaction Anesthesia experience/problems:: None Other Surgeries: Yes: , Tubal Ligation. No: Pacemaker Amputation: No Fractures: No - *Social History Last grade of school completed: High school graduate Smoking Status: Never smoker Alcohol Intake: never Alcohol Intake Frequency:: holidays/special occasions only Substance Use Type: denies use *Occupational Status:: unemployed Housing: house Household Members: spouse, family *Travel in the last 8 weeks: Inside the [place] - Psychiatric History Pschychiatric History:: Reports:: Anxiety, Depression, Post Traumatic Stress Disorder Family Hx:: Hypertension
--- NOTE | 2020-12-15 12:04 | P.PN_ITS ---
[facility] Anesthesia Record Part I Intake, IV Amount: 1,000 Estimated blood loss (mL): 200 Urine output (mL): 400 Blood Pressure: 133/101 SaO2: 99 Pulse Rate: 94 Respiratory Rate: 14 Temperature: 97.5 F Patient is:: Awake Stable to PACU at:: 12:03
--- NOTE | 2020-12-15 13:36 | P.PN_ITS ---
[facility] Anesthesia Record Part II Discharge Time: 12:53 Destination: Obstetric PACU nurse assessment reviewed?: Yes Patient Condition:: Good Anesthesia Complications:: None Swallowing reflex intact?: Yes Cyanosis?: No Blood Pressure: 118/66 Pulse Rate: 95 Temperature: 97.5 F Mental Status: Alert & Oriented Pain level:: 3 Nausea and/or vomitting:: None Intake, IV Amount: 0
[2020-12-15 15:15] LABS: Microscopic,Cath URINE MICROSCOPIC (MICROSCOPIC)
[2020-12-15 15:20] LABS: Appearance,Urine/Cath CLEAR (Clear); Bilirubin,Cath Negative (Negative); Blood, Urine/Cath Negative (Negative); Color,Urine/Cath YELLOW (Yellow); Glucose,Urine/Cath (UA) Negative (Negative); Ketones,Urine/Cath Negative (Negative); Leukocyte Esterase,Cath Negative (Negative); Nitrate,Cath Negative (Negative); PH,Urine/Cath 5.5 (5.0-8.5); Protein,Urine/Cath Negative (Negative); Specific Gravity, Urine/Cath 1.025 (1.005-1.030); Urobilinogen,Cath 0.2 EU/dl (0.2)
[2020-12-15 15:34] LABS: Bacteria,Urine/Cath TRACE /lpf; WBC,Urine/Cath Occasional #/hpf (0-3)
--- NOTE | 2020-12-15 16:42 | HMH.OPNOTE ---
Date of procedure: 12/15/20 Pre-op Diagnosis:: Heavy menstrual bleeding Dysfunctional uterine bleeding Enlarged uterus Anemia from chronic blood loss, requiring transfusion Previous c section Post-op Diagnosis:: same Procedure performed:: Abdominal supracervical hysterectomy extensive lysis of adhesions Surgeon:: Jyoti Anderson MD Curator [employer](s):: Fauzia Walsh HYDROELECTRIC MECHANIC:: Irma Childressreinier Anesthesia: GETA Estimated blood loss (mL): 200 Operative findings:: enlarged uterus normal ovaries bilaterally dense pelvic and abdominal adhesions Operative note:: The patient was taken to the operating room and general anesthesia was administered without difficulty. She was prepped and draped in the supine position. A Pfannenstiel skin incision was made approximately 2 cm above the pubic symphysis with a scalpel and carried down to the underlying layer of fascia. The fascia was incised in the midline and extended laterally sharply. The rectus muscles were sharply dissected off the fascia and in the midline. The peritoneum was entered sharply, with good visualization of the underlying structures. The peritoneal incision was extended. A survey of the patient's pelvis and abdomen revealed extensive vesicouterine adhesions up to the lower uterine segment, as well as deeper adhesions between the cervix and lateral structures. At this time, the patient was placed in Trendelenburg and an To-O retractor was placed in the abdomen; the bowel was packed with moist laparotomy sponges. A double tooth tenaculum was placed on the uterine fundus and the uterus was elevated out of the pelvis. The uterus was bulky and enlarged, but no fibroids or other visible uterine lesions were noted. The round ligaments were identified and transected and suture-ligated. The anterior lip of the broad ligament was dissected medially on both sides and the bladder flap was created digitally. The posterior leaf of the broad ligament was dissected until the ureters were able to be identified on either side and noted to be free of the forthcoming adnexal pedicles. Infundibulopelvic ligaments were doubly clamped medial to the ovaries, transected and suture ligated on either side, with excellent hemostasis noted. The uterine arteries were skeletonized on either side, and were clamped, transected and suture ligated with excellent hemostasis. The bladder flap was further dissected off the lower uterine segment, both sharply and bluntly. The adhesions were very dense and this dissection was extensive, but no bladder injury was noted. Because of the extensive adhesions lateral to the cervix, the uterus was amputated at the level of the cervix. The cervical stump was closed with interrupted 0-vicryl sutures. The pelvis was copiously irrigated with a solution of sterile water. The cervix was hemostatic. All pedicles were reexamined and remained hemostatic. All instruments were removed from the patient's abdomen. The peritoneum was closed with 2-0 Vicryl in a running fashion. The fascia was closed with #1 Vicryl in a running fashion. The subcutaneous fat was closed with 2-0 vicryl in an interrupted fashion. The skin was closed with 2-0 stratafix. The patient tolerated the procedure well; sponge/lap/needle and instrument counts were correct ?2. She was taken to the recovery room awake in stable condition. Estimated blood loss: 200 cc. Condition: stable Disposition: PACU Specimens:: uterus Complications:: none
--- NOTE | 2020-12-15 19:05 | PC.NURSE ---
REPORT RECIEVED FROM BERTRN
--- NOTE | 2020-12-15 19:30 | PC.NURSE ---
pt wanted to get up and sit in chair,sonal and cath care done prior to this.assisted pt up to rocking chair.table and call light in reach.
--- NOTE | 2020-12-15 20:55 | PC.NURSE ---
upon entering room to give pt her pankaj.toradol pt was in bed,she was assisted back to bed by her .pt reports pain a 5 on pain scale of 0-10,water pitcher refilled with ice
--- NOTE | 2020-12-15 21:45 | PC.NURSE ---
staff hung another bag lr and pt reports her pain is a 7 now.medicated with dilaudid 2mg iv,apple juice provided
[2020-12-16 01:00] VITALS: BP 131/69; PULSE 97; RESP 18; TEMP 36.9; O2SAT 95
[2020-12-16 02:55] VITALS: BP 136/82; PULSE 91; RESP 18; TEMP 36.9; O2SAT 98
--- NOTE | 2020-12-16 03:15 | PC.NURSE ---
LUNGS CLEAR,RESP.EVEN AND UNLABORED,BOWEL SOUNDS ACTIVE IN ALL QUADS,SHEEHAN CATH PATENT AND DRAINING CLOUDY YELOW URINE ,SCANT VAG,BLEEDING.V/S STABLE, SCANT SHADOWING NOTED TO LTV.
--- NOTE | 2020-12-16 06:20 | PC.NURSE ---
SHEEHAN CATH REMOVED AT THIS TIME BRIGHT YELLOW URINE NOTED,CASA-CARE DONE,CLEAN KOTEX PAD APPLIED
--- NOTE | 2020-12-16 07:03 | PC.NURSE ---
REPORT GIVEN TO RAMONERN
--- NOTE | 2020-12-16 07:05 | PC.NURSE ---
Report received from Radha Nava RN.
[2020-12-16 08:30] VITALS: BP 130/77; PULSE 93; RESP 16; TEMP 36.7; O2SAT 97
[2020-12-16 08:33] LABS: Basophils % 0.2 % (0.1-2.0); Eosinophils # 0.1 K/mm3 (0.0-0.4); Eosinophils % 1.1 % (0.1-12.0); Lymphocytes # 0.9 K/mm3 (0.7-4.5); Lymphocytes % 9.4 % (10-50); Mean Corpuscular HGB Conc 30.3 g/dL (31.8-35.4); Mean Corpuscular Hemoglobin 22.6 pg (27.0-31.2); Mean Corpuscular Volume 74.6 fl (81-99); Monocytes # 0.5 K/mm3 (0.1-1.0); Monocytes % 4.8 % (1.7-9.3); Neutrophils # 8.1 K/mm3 (1.8-7.8); Neutrophils % 84.6 % (37.0-80.0); Platelet Count 368 K/mm3 (142-424); Red Cell Distribution Width 18.5 % (11.5-17.5); White Blood Count 9.6 K/mm3 (4.8-10.8)
[2020-12-16 08:35] LABS: Hemoglobin 9.7 g/dL (12.2-16.2)
[2020-12-16 09:01] LABS: Anion Gap 14.2 mEq/L (5-15); Blood Urea Nitrogen 10 mg/dl (7-17); Calcium 8.4 mg/dl (8.4-10.2); Carbon Dioxide 19 mmol/L (22.0-30.0); Chloride 108 mmol/L (98-107); Creatinine Clearance Estimated 125 mL/min (50-200); Estimated Glomerular Filt Rate 152 ml/min (>60); GFR (African American) 183 ML/MIN (>60); Glucose 125 mg/dl (74-100); Sodium 135 mmol/L (136-145)
[2020-12-16 09:03] LABS: Potassium 6.2 mmoL/L (3.5-5.1)
--- NOTE | 2020-12-16 09:03 | PC.NURSE ---
Critical lab value received from Oumou Yi in lab. Potassium at 6.2
--- NOTE | 2020-12-16 09:05 | PC.NURSE ---
Nurse attempted to reach Dr. Dat MD in surgery, Lab value reported to OR nurse, awaiting orders from .
--- NOTE | 2020-12-16 10:15 | PC.NURSE ---
IV saline locked at this time, due edema noted in finger, hand, arm, and legs. Pt. reports her fingers feel tight . Nurse instructed pt to elevate extremity to alleviate swelling. IV flushes well, no signs of infiltration, will monitor. closely.
--- NOTE | 2020-12-16 10:18 | PC.NURSE ---
10:[address] Daugherty order received to consult primary care physician. 10:[address] Ferrara report given order received to place order for potassium level redraw and if normal no further consultation needed, if elevated call Dr. Ferrara back. Order R/V.
--- NOTE | 2020-12-16 10:44 | P.PN_ITS ---
Internal Medicine - PN: Subj *Date: 12/16/20 *Time: 10:44 Interval history: She is doing well this morning. She is eating and drinking and ambulating. She has had her Rivera catheter out. She is voiding. She denies any chest pain, shortness of breath or calf tenderness. She has a critically high potassium level of 6. Exam Vital signs and Labs for Last 24 Hours: Temp Pulse Resp BP Pulse Ox 98.1 F 93 H 16 130/77 97 12/16/20 08:30 12/16/20 08:30 12/16/20 08:30 12/16/20 08:30 12/16/20 08:30 Laboratory Results - last 24 hr 12/15/20 09:30: Urine Color Yellow, Urine Appearance Clear, Urine pH 5.5, Ur Specific [place] 1.025, Urine Protein Negative, Urine Glucose (UA) Negative, Urine Ketones Negative, Urine Blood Negative, Urine Nitrate Negative, Urine Bilirubin Negative, Urine Urobilinogen 0.2, Ur Leukocyte Esterase Negative, Urine RBC None, Urine WBC Occasional, Ur Squamous Epith Cells None, Urine Bacteria Trace 12/16/20 07:58: WBC 9.6, RBC 4.30, Hgb 9.7 L D, Hct 32.0 L, MCV 74.6 L, MCH 22.6 L, MCHC 30.3 L, RDW 18.5 H, Plt Count 368, MPV 9.0, Neut % (Auto) 84.6 H, Lymph % (Auto) 9.4 L, [place] % (Auto) 4.8, Eos % (Auto) 1.1, Baso % (Auto) 0.2, Neut # (Auto) 8.1 H, Lymph # (Auto) 0.9, [place] # (Auto) 0.5, Eos # (Auto) 0.1, Baso # (Auto) 0.0 12/16/20 07:58: Sodium 135 L, Potassium 6.2 H* D, Chloride 108 H, Carbon Dioxide 19 L D, Anion Gap 14.2, BUN 10, Creatinine 0.50 L, Estimated Creat Clear 125, Estimated GFR 152, Est GFR ( Amer) 183 D, Glucose 125 H, Calcium 8.4 I & O for Last 24 hours: Intake & Output 12/13/20 12/14/20 12/15/20 12/16/20 11:59 11:59 11:59 11:59 Intake Total 1000 / 1000 Output Total 500 / 500 Balance 500 / 500 - Constitutional no acute distress - *Routine HEENT Exam Head: Present: normocephalic Eye: Present: EOMI, PERRL ENT: Present: mucous membranes moist - *Routine Respiratory Exam Present: CTA bilaterally - *Routine Cardiovascular Exam Present: RRR - *Routine Abdominal Exam Present: soft, normoactive bowel sounds. Absent: tenderness Comments: Her incision is clean and dry. Assessment and Plan - Assessment and plan all Dx Assessment and Plan for all problems:: She is doing very well. We will plan to send her home tomorrow.
--- NOTE | 2020-12-16 11:11 | PC.NURSE ---
Pt. up walking around unit with spouse, masks in place. Pt. tolerating well.
--- NOTE | 2020-12-16 16:13 | PC.NURSE ---
Routine reassessment completed. Pt. tolerated well. Pt. rates pain at 5/10 at incision site, See EMAR for medications given. R Arm noticeably less swollen, Generalized +1 pitting edema, Pt. reports tightness and pain in extremities from swelling is gone. No further changes from previous assessment noted. Pt. wishes to get in shower later this after noon, nurse informed pt to call out when ready so nurse can wrap IV and remove dressing covering LTV incision. Pt. v/u. Spouse requests to stay the night, nurse offered mattress pad and linens spouse wishes to wait until later. Pt. denies further needs will continue to monitor.
[2020-12-16 16:21] VITALS: BP 135/78; PULSE 95; RESP 16; TEMP 36.9; O2SAT 100
--- NOTE | 2020-12-16 17:22 | PC.NURSE ---
IV wrapped, towels provided and Dressing on LTV incision removed. Pt. getting into shower. Nurse informed pt. to call out when finished. Pt. v/u.
--- NOTE | 2020-12-16 18:34 | PC.NURSE ---
LTV incision cleansed with 1/2 sterile water 1/2 peroxide. Pt. 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 Pt. denies needs, will continue to monitor.
--- NOTE | 2020-12-16 19:04 | PC.NURSE ---
Report given to Radha Nava RN.
--- NOTE | 2020-12-16 19:05 | PC.NURSE ---
REPORT RECIEVED FROM RAMONERN
[2020-12-16 19:50] VITALS: BP 132/77; PULSE 82; RESP 18; TEMP 37; O2SAT 100
[2020-12-16 20:00] VITALS: O2SAT 100
--- NOTE | 2020-12-16 22:02 | PC.NURSE ---
KOFFI.TORADOL GIVEN 2154,LAST DOSE WAS LATE.FLUSHED PT SALINE LOCK AND IT FLUSHED WITHOUT DIFF.PT REPORTS THE TORADOL DOS SANTOS,TOLD HER SHE COULD REFUSE IT AND SHE SAID SHE NEEDED IT,REPORTS PAIN A 6 OUT OF 0-10.ASKED IF SHE NEEDED THE DILUADID AND SHE SAID NO WAIT TO SEE IF TORADOL HELPS.OFFERED A SNACK.PT REPORTS SHE IS GOING TO TRY AND SLEEP,NO NEEDS OR CONCERNS VOICED.
[2020-12-17] VITALS: BP 118/62; PULSE 102; RESP 18; TEMP 37
[2020-12-17 04:15] VITALS: BP 132/79; PULSE 93; RESP 18; TEMP 37; O2SAT 94
--- NOTE | 2020-12-17 05:08 | PC.NURSE ---
PT HAS SLEPT WELL,REASSESED,LUNGS CLEAR,RESP.EVEN AND UNLABORED,BOWEL SOUND X4 QUADS,PT VOIDING WITHOUT DIFF.NO BOWEL MOVEMENT YET,PASSING GAS.INCISION OPEN TO AIR.MULTIPLE BRUISING NOTED NOTED AROUND INCISION AND ON PT ARMS FROM IV STICKS AND LAB DRAWS.IV HURTING PT SOME THIS MORNING,SWELLING NOTED AROUND SITE,REMOVED IV,PT REFUSED THE TORADOL,WAS MEDICATED WITH DILAUDID 2MG PO
--- NOTE | 2020-12-17 07:12 | PC.NURSE ---
REPORT GIVEN TO KRYSTALRN
--- NOTE | 2020-12-17 08:17 | HMH.PHAVTE ---
[facility] Pharm[facility] VTE Monitoring - Patient Demographics Admission date: 12/15/20 Report Date: 12/17/20 Time: 08:17 Allergies/Adverse Reactions: Patient Allergies oxycodone Allergy (Mild, Verified 12/08/20 08:55) rash Height: 1.52 m Weight: 129.274 kg - VTE Risk Labs: VTE Related Lab Results Hgb 9.7 g/dL (12.2-16.2) L D 12/16/20 07:58 Hct 32.0 % (37.0-47.0) L 12/16/20 07:58 Plt Count 368 K/mm3 (142-424) 12/16/20 07:58 BUN 10 mg/dl (7-17) 12/16/20 07:58 Creatinine 0.50 mg/dl (0.52-1.04) L 12/16/20 07:58 Estimated Creat Clear 125 mL/min (50-200) 12/16/20 07:58 - Prophylaxis VTE Prophylaxis Ordered?: Yes Types of VTE Prophylaxis: IPCS Thigh High Location of Applied Device: Bilateral Lower Extremeties
[2020-12-17 08:45] VITALS: BP 124/71; PULSE 93; RESP 16; TEMP 36.9; O2SAT 97
[2020-12-17 12:15] VITALS: BP 130/90; PULSE 94; RESP 18; TEMP 36.6; O2SAT 97
--- NOTE | 2020-12-17 15:37 | HMH.DCSUM ---
General - General Admission date:: 12/15/20 Discharge date: 12/17/20 HPI HPI: POD #2 abdominal supracervical hysterectomy tolerating regular diet, ambulating and voiding without difficulty asymptomatic with chronic anemia Objective Vital signs: Temp Pulse Resp BP Pulse Ox 97.9 F 94 H 18 130/90 97 12/17/20 12:15 12/17/20 12:15 12/17/20 12:15 12/17/20 12:15 12/17/20 12:15 Narrative: CONSTITUTIONAL: no acute distress HEENT: mucous membranes moist PULMONARY: breathing unlabored without audible wheezes CV: no tachycardia or visible JVD; normal LE peripheral pulses ABD: soft, ND; appropriately tender but no rebound/guarding SKIN: incision well approximated with no drainage, erythema or induration EXT: no edema LEs NEURO: alert/oriented, no altered mental status PSYCH: appropriate mood and demeanor without anxiety/depression DS: Diagnosis - Discharge Diagnosis (1) Anemia due to chronic blood loss Status: Acute (2) DUB (dysfunctional uterine bleeding) Status: Acute (3) Heavy menstrual bleeding Status: Acute Discharge Plan - Patient Discharge Instructions ACTIVITY: Continue current activity - Follow up Plan Disposition: Home, Self-Care Condition at discharge:: Stable Home Medications: Home Medications Medication Instructions Recorded Confirmed Type lamotrigine 25 mg tablet 25 mg PO DAILY tab 11/25/20 12/15/20 History Ferrous Sulfate 325 mg PO DAILY 12/08/20 12/15/20 History Norethindrone Acetate 5 mg PO BID 12/08/20 12/15/20 History Hydromorphone HCl [Dilaudid 2mg 2 mg PO Q6HP PRN #24 tablet 12/17/20 Rx tablet] Ibuprofen [Motrin 400mg 800 mg PO Q6HP PRN #30 tab 12/17/20 Rx tablet] Prescriptions/Medication Reconciliation: New Hydromorphone HCl [Dilaudid 2mg tablet] 2 mg PO Q6HP PRN #24 tablet PRN Reason: Severe Pain Acetaminophen [Acetaminophen 325mg tab] 650 mg PO Q4HP PRN tablet PRN Reason: Mild Pain Ibuprofen [Motrin 400mg tablet] 800 mg PO Q6HP PRN #30 tab PRN Reason: Mild Pain Continued lamotrigine 25 mg tablet 25 mg PO DAILY tab Norethindrone Acetate 5 mg PO BID Ferrous Sulfate 325 mg PO DAILY - Problem Reconciliation Problems Reviewed?: Yes
--- NOTE | 2020-12-17 18:14 | PC.NURSE ---
1600 Discharge education provided to pt, questions encouraged and answered.
== END 2020-12-17 16:30 | disposition home or self-care (01) | DRG 743 ==
LOC: OB 12:29
PROVIDERS: Nurse Practitioner Obstetrics & Gynecology; Admitting Provider Obstetrics & Gynecology; PCP Nurse Practitioner Family; Visit Provider Obstetrics & Gynecology
PROC: 0UT90ZZ Resection of Uterus, Open Approach (ICD-10-PCS; CPT 58150; principal; 2020-12-15 09:00)
DX: N92.0 Excessive and frequent menstruation with regular cycle (principal); N85.2 Hypertrophy of uterus; D50.0 Iron deficiency anemia secondary to blood loss (chronic); Z87.891 Personal history of nicotine dependence; N73.6 Female pelvic peritoneal adhesions (postinfective)
CPT/HCPCS: 58180; 36415; 36430; 80048; 80053; 81001; 84132; 84703; 85014; 85018; 85025; 86850; 94761; 96374; G0283; J0131; J2405; P9016; U0003

== ENCOUNTER 2021-03-24 13:19 | Emergency (ER) | payer BC, SELFPAY ==
[2021-03-24 13:52] VITALS: BP 149/88; PULSE 101; RESP 18; TEMP 36.9; O2SAT 99; BMI 48.8
[2021-03-24 13:58] VITALS: BP 149/88; PULSE 101; RESP 16; TEMP 36.9
[2021-03-24 14:04] LABS: Apearance,Urine Cloudy (Clear); Color,Urine Dark Yellow (Yellow)
[2021-03-24 14:05] LABS: PH,Urine 5.5 (5.0-8.5); Specific Gravity, Urine > 1.030 (1.005-1.030)
[2021-03-24 14:06] LABS: Bilirubin,Urine Negative (Negative); Blood, Urine Negative (Negative); Glucose,Urine (UA) Negative (Negative); Ketones,Urine Negative (Negative); Protein,Urine Negative (Negative); UTC Leukocyte Esterase,Urine Negative (Negative); UTC Nitrate,Urine Negative (Negative); Urobilinogen,Urine 0.2 EU/dl (0.2)
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
== END 2021-03-24 16:14 | disposition home or self-care (01) ==
PROVIDERS: Emergency Provider Physician Assistant; PCP Family Medicine
DX: N30.00 Acute cystitis without hematuria (principal); F41.8 Other specified anxiety disorders; E03.9 Hypothyroidism, unspecified
CPT/HCPCS: 81003; 87086; 99202; G0463

== ENCOUNTER 2021-04-26 17:20 | Emergency (ER) | payer BC, SELFPAY ==
[2021-04-26 17:48] VITALS: BP 149/81; PULSE 101; RESP 18; TEMP 36.9; O2SAT 98; BMI 55.6
--- NOTE | 2021-04-26 18:02 | HMH.EDUTC ---
[facility] [place] Disposition Clinical Impression: UTI (urinary tract infection) Qualifiers: Urinary tract infection type: site unspecified Hematuria presence: without hematuria Qualified Code(s): N39.0 - Urinary tract infection, site not specified Disposition: Home, Self-Care Condition on Discharge: Good Instructions: DI for Urinary Tract Infection (UTI), Cephalexin Additional Instructions: *Increase fluids. Water not Soda or Tea *Start antibiotic immediately and be sure to take as ordered for the FULL length of time although you should start to see improvement over the next 48 hours *Pyridium as needed Remember this medication will turn your urine Mifflin. This is normal but it will stain what ever it gets on *You should not use Pyridium for more than 48 hours. If so , follow up with your primary physician to review urine culture and ensure that antibiotic is adequate for infection *Be SURE to follow up anytime for new or worsening symptoms with your family doctor. AND in 48 hours for urine culture results with your family doctor, if you do not have a doctor then you may call back to the [facility] for urine culture results and further treatment. We do recommend that you choose and establish care with a Primary Care Physician. AND follow up with them in 10-14 days to repeat UA to ensure infection is resolved and blood no longer present *Be sure to let your PCP know that we sent urine cultures from the [facility] so they can follow up to ensure that you area the on the correct antibiotic Call your doctor office and make appointment for 48 hours (2 days from today) to follow up and get the results of your urine culture and further treatment Prescriptions: cephALEXin [cephALEXin 500mg capsule*] 500 mg PO BID 5 Days #10 cap Transmission Status: Pending to [id number] Phenazopyridine HCl [Pyridium 200mg Tablet] 200 pow PO TID #6 tab Transmission Status: Pending to [facility] Referrals: Provider,Referral, [Primary Care Provider] - As needed Time of Disposition: 18:21 Medical Decision Making - Willi Inquiry Pt receiving controlled substance: No Willi was queried for this patient: No Vital Signs: 04/26/21 17:48 Temperature 98.4 F Temperature Source Oral Pulse Rate [Left] 101 H Respiratory Rate 18 Blood Pressure [Right Arm] 149/81 H Blood Pressure Mean [Right Arm] 103 02 Sat by Pulse Oximetry 98 - Lab Data Lab results reviewed: Yes: I reviewed the patient's lab results. Orders (Tests/Meds): ORDERS Category Date Time Status Urine Culture Stat Micro 04/26/21 17:51 Ordered [facility] [place] HPI - General Stated complaint: possible UTI Time Seen by Provider: 04/26/21 18:02 Mode of Arrival: Ambulatory Source of Information: Patient Limitations: No Limitations Description of Symptoms (Recalled from Triage Doc. by RN): pt c/o urinary frequency and burning with urination. HEENT Symptoms (Recalled from RN notes): No Resp Symptoms (Recalled from RN notes): No Skin Symptoms (Recalled from RN notes): No MS Symptoms (Recalled from RN notes): No Functional Status (Recalled from RN notes): wnl - History of Present Illness Provider Complaint: Patient states that she has been having burning and feeling of urgency and frequency State that she feels like she may have a UTI so she came in to get checked - Related Data Previous Rx's Medication Instructions Recorded aripiprazole 5 mg tablet 5 mg PO QHS #30 tab 04/06/21 hydroxyzine pamoate 25 mg capsule 25 mg PO TID PRN #90 cap 04/06/21 Phenazopyridine HCl [Pyridium 200 pow PO TID #6 tab 04/26/21 200mg Tablet] cephALEXin [cephALEXin 500mg 500 mg PO BID 5 Days #10 cap 04/26/21 capsule*] Allergies Allergy/AdvReac Type Severity Reaction Status Date / Time oxycodone Allergy Mild rash Verified 02/28/21 09:16 - Worker's Comp Is this a Worker's Comp case?: No [facility] History - Hepatitis A Screen Drug use history?: No High risk sexual behaviors?: No History of
[2021-04-26 18:32] VITALS: BP 149/81; PULSE 101; RESP 18; TEMP 36.9
[2021-04-26 19:39] LABS: Apearance,Urine Cloudy (Clear); Color,Urine Dark Yellow (Yellow); Protein,Urine Negative (Negative); Specific Gravity, Urine > 1.030 (1.005-1.030)
[2021-04-26 19:40] LABS: Bilirubin,Urine Negative (Negative); Blood, Urine Trace (Negative); Glucose,Urine (UA) Negative (Negative); Ketones,Urine Negative (Negative); UTC Leukocyte Esterase,Urine Negative (Negative); UTC Nitrate,Urine Negative (Negative); Urobilinogen,Urine 0.2 EU/dl (0.2)
== END 2021-04-26 18:42 | disposition home or self-care (01) ==
PROVIDERS: Emergency Provider Nurse Practitioner
DX: N39.0 Urinary tract infection, site not specified (principal); F41.8 Other specified anxiety disorders
CPT/HCPCS: 81003; 87086; 87088; 87186; 99202; G0463

== ENCOUNTER 2022-06-01 09:19 | Emergency (ER) | payer OTHER, SELFPAY ==
[2022-06-01 09:20] VITALS: BP 152/93; PULSE 78; RESP 21; TEMP 36.9; O2SAT 98; BMI 50.8
--- NOTE | 2022-06-01 09:30 | XR_ITS ---
FINAL REPORT CLINICAL HISTORY: pain FINDINGS: LEFT ANKLE Three views of the left ankle were obtained. There is no acute fracture or dislocation. The joint spaces and mortise are intact. There is no soft tissue abnormality. IMPRESSION: No acute bony abnormality. Reviewed, Interpreted and Dictated by Delfino Holguin III, MD Transcribed by Angelica Reynoso Authenticated and [facility]
--- NOTE | 2022-06-01 09:35 | EXP.UTC ---
Discharge Plan Disposition Patient Disposition: Home, Self-Care Condition: Good Prescriptions Prescriptions: New ibuprofen [ibuprofen] 600 mg tablet 600 mg PO Q6HP PRN (Reason: Mild Pain) Qty: 30 0RF No Action Qelbree 200 mg capsule,extended release 24hr 200 mg PO .COMPLEX Qty: 60 1RF Rx Instructions: take 1 daily for 1 week; then increase to 2 capsules daily Referrals Follow up/Referrals: Provider,Referral, [Primary Care Provider] - See instructions Madai Johnson DPM [Staff Physician] - See instructions Activity Restrictions/Add. Instructions Additional Instructions/Restrictions: Rest the extremity, Elevate the extremity as tolerated while you are resting. Take ibuprofen for pain. I sent in a prescription to your pharmacy. Follow up with Dr. Johnson (podiatry). I put in a referral but you need to call her office and schedule an appointment. Follow up with your regular doctor. GO TO THE ER FOR ANY WORSENING SYMPTOMS Clinical Impressions Clinical Impression: Left ankle pain, Left foot pain Stand Alone Forms Stand Alone Forms: Work/School Release Instructions Patient Instructions: DI for Ankle Pain, DI for Foot Pain Discharge ED Provider: Silvestre Conteh [facility] [place] General Stated complaint: LT ankle pain rolled it 02/21 Mode of Arrival: Ambulatory Source of Information: Patient Limitations: No Limitations Time Seen by Provider: 06/01/22 09:33 Description of Symptoms (Recalled from Triage Doc. by RN): PATIENT C/O LEFT ANKLE PAIN THAT BEGAN AT THE BEGINNING OF FEBRUARY. SHE STATES THE PAIN BECAME WORSE AFTER SHE TWISTED IT AGAIN IN APRIL HEENT Symptoms (Recalled from RN notes): No Resp Symptoms (Recalled from RN notes): No Skin Symptoms (Recalled from RN notes): No MS Symptoms (Recalled from RN notes): Yes Functional Status (Recalled from RN notes): WNL History of Present Illness Provider Complaint: She states that for the past 2 to 3 months she has had left ankle and foot pain. She originally twisted that ankle before her symptoms began. Related Data Previous Rx's Medication Instructions Recorded viloxazine 200 mg capsule,extended 200 mg PO .COMPLEX #60 caps 03/30/22 release 24 hr (Qelbree) ibuprofen 600 mg tablet 600 mg PO Q6HP PRN Mild Pain #30 06/01/22 tabs Allergies Allergy/AdvReac Type Severity Reaction Status Date / Time oxycodone Allergy Mild rash Verified 03/28/22 11:30 Worker's Comp Is this a Worker's Comp case?: No [facility] Disclaimer: The information contained in this section may have been updated after the patient was seen, as this information can be updated by other users. Medical History Abnormal EKG delivery delivered Chest pain Dyspnea Full dentures Generalized anxiety disorder History of anemia Major depressive disorder Morbid obesity Sinus tachycardia Surgical History H/O abdominal supracervical subtotal hysterectomy History of section History of hysterectomy History of tubal ligation Previous section Social History Smoking Status: Never smoker second hand exposure: No alcohol intake: never substance use type: denies use and marijuana (has tried this before; maybe 3-4 times; nothing recent) current occupational status: unemployed Travel in the last 8 weeks: None household members: spouse and family housing: house number of children: 3 current occupational exposures/hazards: No caffeine: Yes ROS Obtained: Yes All systems reviewed & no additional complaints except as documented Constitutional Constitutional: Denies chills and Denies fever(s) Eyes Eyes: Denies eye discharge ENT Ears, Nose, Mouth, and Throat: Denies dizziness, Denies otalgia and Denies sore throat Cardiovascular Cardiovascular: Denies chest pain Respira
[2022-06-01 10:27] VITALS: BP 152/93; PULSE 78; RESP 21; TEMP 36.9; O2SAT 98
== END 2022-06-01 10:30 | disposition home or self-care (01) ==
PROVIDERS: Emergency Provider Nurse Practitioner Family
DX: M25.572 Pain in left ankle and joints of left foot (principal)
CPT/HCPCS: 73610; 99212; G0463

== ENCOUNTER 2022-07-10 13:55 | Emergency (ER) | payer OTHER, SELFPAY ==
[2022-07-10] VITALS (7 sets, daily range): BP systolic 129–185; BP diastolic 83–106; PULSE 83–107; RESP 16–20; TEMP 36.8; O2SAT 97–100; BMI 51.0
--- NOTE | 2022-07-10 14:31 | CT_ITS ---
FINAL REPORT TECHNIQUE: Axial images through the abdomen and pelvis were performed without contrast. This study was performed with techniques to keep radiation doses as low as reasonably achievable, (ALARA). Individualized dose reduction techniques using automated exposure control or adjustment of mA and/or kV according to the patient's size were employed. CLINICAL HISTORY: left sided hip/abd pain FINDINGS: ABDOMEN: There are calcified granulomas in left lung base. The heart size is normal. Limited images of the liver are unremarkable. The gallbladder is partially collapsed with mild wall thickening. The spleen is normal. No adrenal mass is identified. The aorta is normal in caliber. There is no significant free fluid or adenopathy. There is no nephrolithiasis. There is no hydronephrosis. PELVIS: The appendix is unremarkable. There is a probable left ovarian cyst measuring 24 mm. The urinary bladder is unremarkable. There is no significant free fluid or adenopathy. IMPRESSION: Probable left ovarian cyst. Reviewed, Interpreted and Dictated by Delfino Holguin III, MD Transcribed by Oumou Acharya Authenticated and [facility]
[2022-07-10 14:40] LABS: Microscopic, Urine URINE MICROSCOPIC (MICROSCOPIC)
[2022-07-10 14:43] LABS: Basophils # 0.1 K/mm3 (0-0.2); Basophils % 0.7 % (0.1-2.0); Eosinophils # 0.3 K/mm3 (0.0-0.4); Eosinophils % 2.8 % (0.1-12.0); Hematocrit 42.5 % (37.0-47.0); Hemoglobin 13.8 g/dL (12.2-16.2); Lymphocytes # 1.8 K/mm3 (0.7-4.5); Lymphocytes % 19.9 % (10-50); Mean Corpuscular HGB Conc 32.4 g/dL (31.8-35.4); Mean Corpuscular Hemoglobin 28.1 pg (27.0-31.2); Mean Corpuscular Volume 86.7 fl (81-99); Mean Platelet Volume 8.1 fl (7.4-10.4); Monocytes # 0.5 K/mm3 (0.1-1.0); Monocytes % 5.5 % (1.7-9.3); Neutrophils # 6.5 K/mm3 (1.8-7.8); Neutrophils % 71.2 % (37.0-80.0); Platelet Count 321 K/mm3 (142-424); Red Cell Distribution Width 14.5 % (11.5-17.5); White Blood Count 9.2 K/mm3 (4.8-10.8)
[2022-07-10 14:44] LABS: Chloride 107 mmol/L (98-107); Potassium 3.9 mmoL/L (3.5-5.1); Sodium 142 mmol/L (136-145)
[2022-07-10 14:47] LABS: Alanine Aminotransferase 26 U/L (12-78); Albumin Level 4.2 g/dl (3.5-5.0); Albumin/Globulin Ratio 1.1 (1.1-1.8); Alkaline Phosphatase 112 U/L (38-126); Anion Gap 8.9 mEq/L (5-15); Aspartate Amino Transferase 28 U/L (14-36); Bilirubin,Total 0.3 mg/dl (0.2-1.3); Blood Urea Nitrogen 14 mg/dl (7-17); Calcium 9.1 mg/dl (8.4-10.2); Carbon Dioxide 30 mmol/L (22.0-30.0); Creatinine Clearance Estimated 108 mL/min (50-200); Estimated Glomerular Filt Rate 122 ml/min (>60); GFR (African American) 147 ML/MIN (>60); Globulin 3.7 g/dL (1.3-3.2); Glucose 76 mg/dl (74-100); Total Protein,Serum 7.9 g/dl (6.3-8.2)
[2022-07-10 14:49] LABS: Appearance,Urine CLEAR (Clear); Bilirubin,Urine Negative (Negative); Blood, Urine Negative (Negative); Color,Urine YELLOW (Yellow); Glucose,Urine (UA) Negative (Negative); Ketones,Urine Negative (Negative); Leukocyte Esterase,Urine Negative (Negative); Nitrate,Urine Negative (Negative); Protein,Urine Negative (Negative); Urobilinogen,Urine 0.2 EU/dl (0.2)
--- NOTE | 2022-07-10 14:52 | HMH.EDGENADL ---
Discharge Plan Disposition Patient Disposition: Home, Self-Care Condition: Good Prescriptions Prescriptions: No Action No Known Home Medications Referrals Follow up/Referrals: Provider,MD Rashaad [Primary Care Provider] - See instructions Jyoti Anderson MD [Staff Physician] - See instructions (Left-sided ovarian cyst with associated pain) Clinical Impressions Clinical Impression: Cyst of left ovary Instructions Patient Instructions: DI for Acute Abdominal Pain Discharge ED Provider: Eric Sainz General Adult HPI General Chief complaint: Abdominal Pain Stated complaint: possible kidney stone, lower back pain Time Seen by Provider: 07/10/22 14:15 Mode of Arrival: Ambulatory Source of Information: Patient Limitations: No Limitations Description of Symptoms (Recalled from ER Triage Doc. by RN): pt comes in with c/o left hip/back pain. pt reports pain in hip area with urination. no pt had hysterectomy. symptoms ongoing for 2 days History of Present Illness HPI narrative: This is a 26-year-old female with history of numerous UTIs in the past, hysterectomy presenting with left flank pain. Patient states that flank pain started approximately 1 day prior to arrival while she was sitting down. It started in her left flank and radiates forward intermittently. Described as a mild to moderate in intensity, intermittent, stabbing. 3 out of 10 currently, 8 out of 10 when it is at its worst. Nothing in particular has made it better or worse. Has had pinkish urine over the past day, but no osiris hematuria or dark red urine. Denies fevers, chills, nausea, vomiting, but has felt nauseated in the setting of severe pain. Has been having bowel movements. Normal without constipation or diarrhea, no hematochezia. No other concerns at this time. Related Data Home Medications Medication Instructions Recorded Confirmed No Known Home Medications 07/10/22 07/10/22 Allergies Allergy/AdvReac Type Severity Reaction Status Date / Time oxycodone Allergy Mild rash Verified 07/10/22 14:18 [facility] Disclaimer: The information contained in this section may have been updated after the patient was seen, as this information can be updated by other users. Medical History Abnormal EKG delivery delivered Chest pain Dyspnea Full dentures Generalized anxiety disorder History of anemia Major depressive disorder Morbid obesity Sinus tachycardia Surgical History H/O abdominal supracervical subtotal hysterectomy History of section History of hysterectomy History of tubal ligation Previous section Social History Smoking Status: Never smoker second hand exposure: No alcohol intake: never substance use type: denies use and marijuana (has tried this before; maybe 3-4 times; nothing recent) current occupational status: unemployed Travel in the last 8 weeks: None household members: spouse and family housing: house number of children: 3 current occupational exposures/hazards: No caffeine: Yes ROS Obtained: Yes All systems reviewed & no additional complaints except as documented Physical Exam General General appearance: alert and in no apparent distress Head Head exam: atraumatic, normocephalic and normal inspection Eye Eye exam: Present normal appearance, PERRL and EOMI ENT ENT exam: Present normal exam, normal oropharynx, mucous membranes moist, TM's normal bilaterally and normal external ear exam Neck Neck exam: Present normal inspection, full ROM and trachea midline; Absent meningismus or lymphadenopathy Chest Chest inspection: Present normal inspection and symmetric chest wall rise; Absent tenderness Respiratory Respiratory exam: Present normal lung sounds bilaterally; Absent respiratory distress Card
[2022-07-10 14:55] LABS: Amorphous Sediment,Urine Trace /lpf; Squamous Epithelial Cell,Urine Occasional #/hpf (0-5)
--- NOTE | 2022-07-10 15:19 | PC.NURSE ---
checked on pt at this time, pt sitting up in bed, states no needs at this time
--- NOTE | 2022-07-10 16:05 | PC.NURSE ---
Addendum entered by Concha Phipps RN 07/10/22 16:07: states sending preliminary report down at this time Original Note: contacted rad to check on status of ct result, rad staff checking on it.
--- NOTE | 2022-07-10 17:20 | PC.NURSE ---
checked on pt at this time, notified her CT reports is back and ER MD is reviewing pts chart
== END 2022-07-10 17:41 | disposition home or self-care (01) ==
PROVIDERS: Emergency Provider Emergency Medicine
DX: N83.202 Unspecified ovarian cyst, left side (principal); Z86.79 Personal history of other diseases of the circulatory system; F41.1 Generalized anxiety disorder; F33.9 Major depressive disorder, recurrent, unspecified; Z86.2 Personal history of diseases of the blood and blood-forming organs and certain disorders involving the immune mechanism; Z90.710 Acquired absence of both cervix and uterus; Z98.51 Tubal ligation status
CPT/HCPCS: 74176; 80053; 81001; 85025; 96374; 99285

== ENCOUNTER 2022-08-28 10:53 | Emergency (ER) | payer OTHER, SELFPAY ==
[2022-08-28 11:15] VITALS: BP 127/82; PULSE 84; RESP 20; TEMP 36.8; O2SAT 99; BMI 52.7
--- NOTE | 2022-08-28 11:38 | EXP.UTC ---
Discharge Plan Disposition Patient Disposition: Home, Self-Care Condition: Good Prescriptions Prescriptions: New amoxicillin 500 mg capsule 500 mg PO TID 7 Days Qty: 21 0RF Referrals Follow up/Referrals: Provider,Referral, MD [Primary Care Provider] - See instructions Activity Restrictions/Add. Instructions Additional Instructions/Restrictions: Take medication as prescribed Follow up with your Family Doctor if needed Straight to ER if any life threatening symptoms Over the counter allergy medication like Claritan may help with allergy issues Clinical Impressions Clinical Impression: Otitis media Instructions Patient Instructions: Middle Ear Infection Discharge ED Provider: Kourtney Calero [facility] [place] HPI General Stated complaint: RT ear pain Mode of Arrival: Ambulatory Source of Information: Patient Limitations: No Limitations Time Seen by Provider: 08/28/22 11:38 Description of Symptoms (Recalled from Triage Doc. by RN): ear pain right ear HEENT Symptoms (Recalled from RN notes): Yes Resp Symptoms (Recalled from RN notes): No Skin Symptoms (Recalled from RN notes): No MS Symptoms (Recalled from RN notes): No Functional Status (Recalled from RN notes): n/a History of Present Illness Provider Complaint: Patient states that she has been having pain in her right ear that has continued to get worse States that today she was still having pain so she came in to get it checked out Related Data Previous Rx's Medication Instructions Recorded amoxicillin 500 mg capsule 500 mg PO TID 7 days #21 caps 08/28/22 Allergies Allergy/AdvReac Type Severity Reaction Status Date / Time oxycodone Allergy Mild rash Verified 08/28/22 11:32 Worker's Comp Is this a Worker's Comp case?: No [facility] Disclaimer: The information contained in this section may have been updated after the patient was seen, as this information can be updated by other users. Medical History Abnormal EKG delivery delivered Chest pain Dyspnea Full dentures Generalized anxiety disorder History of anemia Major depressive disorder Morbid obesity Sinus tachycardia Surgical History H/O abdominal supracervical subtotal hysterectomy History of section History of hysterectomy History of tubal ligation Previous section x2 Social History Smoking Status: Never smoker second hand exposure: No alcohol intake: never substance use type: denies use and marijuana (has tried this before; maybe 3-4 times; nothing recent) current occupational status: unemployed Travel in the last 8 weeks: None household members: spouse and family housing: house number of children: 3 current occupational exposures/hazards: No caffeine: Yes ROS Obtained: Yes All systems reviewed & no additional complaints except as documented and Yes Systems reviewed as appropriate & no additional complaints except as documented Constitutional Constitutional: Reports system reviewed and no additional complaints, except as documented and Reports as per HPI Eyes Eyes: Reports system reviewed and no additional complaints, except as documented and Reports as per HPI ENT Ears, Nose, Mouth, and Throat: Reports system reviewed and no additional complaints, except as documented, Reports as per HPI and Reports otalgia Cardiovascular Cardiovascular: Reports system reviewed and no additional complaints, except as documented and Reports as per HPI Respiratory Respiratory: Reports system reviewed and no additional complaints, except as documented and Reports as per HPI Gastrointestinal Gastrointestingal: Reports system reviewed and no additional complaints, except as documented and as per HPI Physical Exam General General appearance: alert and in no apparent distress Expanded ENT Exam TM/Canal ex
[2022-08-28 11:48] VITALS: BP 127/82; PULSE 84; RESP 20; TEMP 36.8; O2SAT 99
== END 2022-08-28 11:47 | disposition home or self-care (01) ==
PROVIDERS: Emergency Provider Nurse Practitioner
DX: H66.91 Otitis media, unspecified, right ear (principal); E66.01 Morbid (severe) obesity due to excess calories
CPT/HCPCS: 99212; 99214; G0463

== ENCOUNTER → 2022-09-03 15:21 | Outpatient (CLI) | payer OTHER, SELFPAY ==
--- NOTE | 2022-09-03 15:21 | US_ITS ---
FINAL REPORT CLINICAL HISTORY: chronic pelvic pain, Lt. ovarian cyst FINDINGS: Transvaginal sonographic images of the pelvis were obtained. The uterus is surgically absent. The right ovary measures 4.7 cm in length and left ovary measures 2.5 cm in length. Normal blood flow seen to the ovaries. There is a 4.2 cm right ovarian cyst. There is a 1.7 cm left ovarian cyst. There is no evidence of free fluid. IMPRESSION: Hysterectomy. Bilateral ovarian cysts. Reviewed, Interpreted and Dictated by Delfino Holguin III, MD Transcribed by Angelica Reynoso Authenticated and [facility]
== END ==
PROVIDERS: Visit Provider Obstetrics & Gynecology
DX: R10.2 Pelvic and perineal pain (principal); N83.202 Unspecified ovarian cyst, left side; G89.29 Other chronic pain
CPT/HCPCS: 76830

== ENCOUNTER → 2022-11-05 15:25 | Outpatient (CLI) | payer OTHER, SELFPAY ==
--- NOTE | 2022-11-05 15:26 | US_ITS ---
PROCEDURE: US TRANSVAGINAL CLINICAL INDICATION: follow up ovarian cyst COMPARISON: US US TRANSVAGINAL from 09/03/2022 FINDINGS: UTERUS: The uterus has been surgically removed. The cervix is present and appears normal. LEFT OVARY: [id number] with a volume of 19.4ml.Within the left ovary is a 3.2 centimeter follicle. RIGHT OVARY: Not visualized due to the overlying bowel gas. Previously described 4.2 centimeter cyst has resolved. Doppler flow to left ovary is seen.. Trace fluid in the cul-de-sac. IMPRESSION: 1. The uterus has been surgically removed. Cervix is present and appears normal. 2. The left ovary appears normal with a 3.2 centimeter follicle. Right ovary is not visualized due to overlying bowel gas. 3. Trace fluid in the cul-de-sac. Dictated by: Adan Daugherty MD 11/06/2022 17:27 Adan Daugherty MD in [place] 11/06/2022 17:27
== END ==
PROVIDERS: PCP Nurse Practitioner; Visit Provider Obstetrics & Gynecology
DX: N83.202 Unspecified ovarian cyst, left side (principal)
CPT/HCPCS: 76830

== ENCOUNTER 2022-11-05 16:20 | Emergency (ER) | payer OTHER, SELFPAY ==
[2022-11-05 16:35] VITALS: BP 143/86; PULSE 90; RESP 20; TEMP 36.8; O2SAT 99; BMI 45.1
--- NOTE | 2022-11-05 17:04 | EXP.UTC ---
Discharge Plan Disposition Patient Disposition: Home, Self-Care Condition: Good Prescriptions Prescriptions: New methylprednisolone [Medrol (Inder)] 4 mg tablets,dose pack See Rx Instructions .Route .COMPLEX 6 Days Qty: 21 0RF Rx Instructions: taper pack; guaifenesin [Mucinex] 600 mg tablet extended release 12hr 600 - 1,200 mg PO BID PRN (Reason: cough) Qty: 20 0RF azithromycin [Zithromax Z-Inder] 250 mg tablet See Rx Instructions .ROUTE .COMPLEX 5 Days Qty: 6 0RF Rx Instructions: For 250 mg dose pack: take 500 mg today (day 1), then 250 mg for 4 days (days 2-5) fluticasone propionate [Flonase Allergy Relief] 50 mcg/actuation spray,suspension 1 - 2 spray intranasal DAILY Qty: 16 0RF Rx Instructions: administer into each nostril No Action Vyvanse 30 mg capsule 30 mg PO DAILY Label Comments: TAKE 1 CAPSULE BY MOUTH ONCE DAILY IN THE MORNING Referrals Follow up/Referrals: Aleah Torres APRN [Primary Care Provider] - See instructions Activity Restrictions/Add. Instructions Additional Instructions/Restrictions: *Monitor Temp, Over the counter Motrin or Tylenol as directed/as needed Tylenol every 4 hours and Motrin every 6 hours (as long as your family doctor has told you that you can take it) for fever or pain. and straight to ER if unable to lower temp less than 101.0 after medication given *Warm salt water gargles may help to soothe the throat *Throat Lozenges? *Warm fluids like tea with honey may help to soothe the throat? *Sleep elevated *Humidifier/Vaporizer *Flonase 2 sprays in each nostril daily but be aware that it may take 2-3 days before you notice improvement Take medication as prescribed Follow up IMMEDIATELY for new or worsening symptoms or no Noticeable improvement over the next 48-72 hours. 911 for difficulty breathing or swallowing Clinical Impressions Clinical Impression: Sinusitis Qualifiers: Sinusitis location: unspecified location Chronicity: unspecified Qualified Code(s): J32.9 - Chronic sinusitis, unspecified Instructions Patient Instructions: Sinusitis, Cough, DI for Sinusitis Discharge ED Provider: Kourtney Calero [facility] [place] HPI General Stated complaint: Runny nose, coughing Mode of Arrival: Ambulatory Source of Information: Patient Limitations: No Limitations Time Seen by Provider: 11/05/22 17:04 Description of Symptoms (Recalled from Triage Doc. by RN): PATIENT C/O PRODUCTIVE COUGH AND CHEST CONGESTION X 2 DAYS HEENT Symptoms (Recalled from RN notes): No Resp Symptoms (Recalled from RN notes): Yes Skin Symptoms (Recalled from RN notes): No MS Symptoms (Recalled from RN notes): No Functional Status (Recalled from RN notes): WNL History of Present Illness Provider Complaint: Patient states that she has been having sinus pain and pressure on and off for over a week worse in the last couple of days she has started having some chest congestion and cough that at times she will cough up some yellowish colored mucous States that today she wasnt feeling any better so she came in Related Data Home Medications Medication Instructions Recorded Confirmed lisdexamfetamine 30 mg capsule 30 mg PO DAILY ADHD 11/01/22 11/05/22 (Vyvanse) Previous Rx's Medication Instructions Recorded azithromycin 250 mg tablet See Rx Instructions PO .COMPLEX 5 11/05/22 (Zithromax Z-Inder) days #6 tabs fluticasone propionate 50 1 - 2 spray intranasal DAILY #16 11/05/22 mcg/actuation nasal grams spray,suspension (Flonase Allergy Relief) guaifenesin 600 mg tablet, 600 - 1,200 mg PO BID PRN cough 11/05/22 extended release 12 hr (Mucinex) #20 tabs methylprednisolone 4 mg tablets in See Rx Instructions .Route 11/05/22 a dose pack (Medrol (Inder)) .COMPLEX 6 days #21 tabs Allergies Allergy/AdvReac Type Severity Reaction Status Date / Time oxycodone Allergy Mild rash Verified 11/01/22 13:44 Worker's Comp Is this a Worker's Comp
[2022-11-05 17:16] VITALS: BP 143/86; PULSE 90; RESP 20; TEMP 36.8; O2SAT 99
== END 2022-11-05 17:19 | disposition home or self-care (01) ==
PROVIDERS: Emergency Provider Nurse Practitioner; PCP Nurse Practitioner
DX: J01.90 Acute sinusitis, unspecified (principal); F90.9 Attention-deficit hyperactivity disorder, unspecified type; F41.1 Generalized anxiety disorder; F33.9 Major depressive disorder, recurrent, unspecified; E66.01 Morbid (severe) obesity due to excess calories; Z68.42 Body mass index [BMI] 45.0-49.9, adult
CPT/HCPCS: 99212; 99214; G0463

== ENCOUNTER 2023-01-24 18:54 | Emergency (ER) | payer OTHER, SELFPAY ==
--- NOTE | 2023-01-24 18:53 | ECG_ITS ---
APPROVED REPORT Exam: Resting ECG HR:118 bpm ECG Measurements Heart Rate 118 AXES UT 116 P 47 QRSd 117 QRS 29 QT 307 T 50 QTc 377 Conclusion SINUS TACHYCARDIA WITH SHORT UT INTERVAL ABNORMAL ECG UNCONFIRMED REPORT Electronically signed by : Jacques Claudio MD 01/25/2023 07:22:47
[2023-01-24 19:07] VITALS: BP 136/78; PULSE 118; RESP 16; TEMP 36.8; O2SAT 97; BMI 49.1
--- NOTE | 2023-01-24 19:25 | XR_ITS ---
PROCEDURE INFORMATION: Exam: XR Chest Exam date and time: 01/24/2023 8:06 PM Age: 27 years old Clinical indication: Pain; Chest pressure; Additional info: Palpitation, s R cp TECHNIQUE: Imaging protocol: Radiologic exam of the chest. Views: 1 view. COMPARISON: CT ABDOMEN PELVIS WO CON 07/10/2022 2:43 PM FINDINGS: Lungs: See Pleural spaces finding. Pleural spaces: Low lung volumes are present without large pleural effusions or consolidations. Heart/Mediastinum: Unremarkable. No cardiomegaly. Bones/joints: Unremarkable. IMPRESSION: No acute findings.
--- NOTE | 2023-01-24 19:31 | HMH.EDGENADL ---
Discharge Plan Disposition Patient Disposition: Home, Self-Care Chief Complaint: Arrhythmia/Palpitations Prescriptions Prescriptions: No Action Vyvanse 30 mg capsule 30 mg PO DAILY Patient Comments: TAKE 1 CAPSULE BY MOUTH ONCE DAILY IN THE MORNING methylprednisolone [Medrol (Inder)] 4 mg tablets,dose pack See Rx Instructions .Route .COMPLEX 6 Days Qty: 21 0RF Rx Instructions: taper pack; guaifenesin [Mucinex] 600 mg tablet extended release 12hr 600 - 1,200 mg PO BID PRN (Reason: cough) Qty: 20 0RF azithromycin [Zithromax Z-Inder] 250 mg tablet See Rx Instructions .ROUTE .COMPLEX 5 Days Qty: 6 0RF Rx Instructions: For 250 mg dose pack: take 500 mg today (day 1), then 250 mg for 4 days (days 2-5) fluticasone propionate [Flonase Allergy Relief] 50 mcg/actuation spray,suspension 1 - 2 spray intranasal DAILY Qty: 16 0RF Rx Instructions: administer into each nostril Referrals Follow up/Referrals: Aleah Torres APRN [Primary Care Provider] - See instructions Igor Miller MD [Staff Physician] - See instructions Activity Restrictions/Add. Instructions Additional Instructions/Restrictions: Follow-up with your family doctor. Cardiology referral has also been placed given right bundle branch block on EKG and tachycardia. Call your family doctor to establish care for this visit to the emergency department and schedule follow-up within 48 hours to ensure improvement. If you have any worsening of your condition or any other concerning signs or symptoms, return to the emergency department or your primary care doctor for further evaluation. Clinical Impressions Clinical Impression: Sinus tachycardia, Abnormal EKG Discharge ED Provider: Eric Sainz General Adult HPI General Chief complaint: Arrhythmia/Palpitations Stated complaint: Arrythmia Time Seen by Provider: 01/24/23 19:00 Mode of Arrival: Ambulatory Source of Information: Patient Limitations: No Limitations Description of Symptoms (Recalled from ER Triage Doc. by RN): 27 yo F presents to ED with c/o heart racing, pt reports that she feels a heaviness in her chest, and her heart feels like its boudning out of her chest. pt has had similar episodes in the past, but pain went away. pt reports that she come in because the palpitations havent went away History of Present Illness HPI narrative: This is a 27-year-old female with history of known, intermittent tachycardia presenting with palpitations. Patient states around 1500 today, 01/24, started having palpitations while walking outside. No inciting event otherwise. Palpitations associated with intermittent, stabbing right-sided chest pain that does not radiate. No cough, mops this, nausea or vomiting, shortness of breath, or any other concerns. No recent illness. Patient has no history or risk factors for DVT/PE. Related Data Home Medications Medication Instructions Recorded Confirmed lisdexamfetamine 30 mg capsule 30 mg PO DAILY ADHD 11/01/22 11/05/22 (Vyvanse) Previous Rx's Medication Instructions Recorded azithromycin 250 mg tablet See Rx Instructions PO .COMPLEX 5 11/05/22 (Zithromax Z-Inder) days #6 tabs fluticasone propionate 50 1 - 2 spray intranasal DAILY #16 11/05/22 mcg/actuation nasal grams spray,suspension (Flonase Allergy Relief) guaifenesin 600 mg tablet, 600 - 1,200 mg PO BID PRN cough 11/05/22 extended release 12 hr (Mucinex) #20 tabs methylprednisolone 4 mg tablets in See Rx Instructions .Route 11/05/22 a dose pack (Medrol (Inder)) .COMPLEX 6 days #21 tabs Allergies Allergy/AdvReac Type Severity Reaction Status Date / Time oxycodone Allergy Mild rash Verified 11/01/22 13:44 [facility] Disclaimer: The information contained in this section may have been updated after the patient was seen, as this information can be updated by other users. Medical History (Updated 01/24/23 @ 21:56 by Eric Sainz MD) Abnormal EKG ADHD Ce
[2023-01-24 19:36] LABS: Basophils % 0.3 % (0.1-2.0); Eosinophils # 0.2 K/mm3 (0.0-0.4); Eosinophils % 2.2 % (0.1-12.0); Hematocrit 40.7 % (37.0-47.0); Hemoglobin 13.3 g/dL (12.2-16.2); Lymphocytes % 21.9 % (10-50); Mean Corpuscular HGB Conc 32.6 g/dL (31.8-35.4); Mean Corpuscular Hemoglobin 28.7 pg (27.0-31.2); Mean Corpuscular Volume 87.9 fl (81-99); Mean Platelet Volume 8.5 fl (7.4-10.4); Monocytes # 0.5 K/mm3 (0.1-1.0); Neutrophils # 6.5 K/mm3 (1.8-7.8); Neutrophils % 70.5 % (37.0-80.0); Platelet Count 287 K/mm3 (142-424); Red Blood Count 4.63 M/mm3 (4.20-5.40); Red Cell Distribution Width 13.9 % (11.5-17.5); White Blood Count 9.2 K/mm3 (4.8-10.8)
[2023-01-24 19:39] LABS: Chloride 106 mmol/L (98-107)
[2023-01-24 19:40] LABS: Potassium 3.8 mmoL/L (3.5-5.1); Sodium 141 mmol/L (136-145)
[2023-01-24 19:42] LABS: Alanine Aminotransferase 21 U/L (12-78); Albumin Level 4.1 g/dl (3.5-5.0); Albumin/Globulin Ratio 1.1 (1.1-1.8); Alkaline Phosphatase 130 U/L (38-126); Anion Gap 13.8 mEq/L (5-15); Aspartate Amino Transferase 27 U/L (14-36); Bilirubin,Total 0.4 mg/dl (0.2-1.3); Blood Urea Nitrogen 15 mg/dl (7-17); Carbon Dioxide 25 mmol/L (22.0-30.0); Creatinine Clearance Estimated 107 mL/min (50-200); Estimated Glomerular Filt Rate 121 ml/min (>60); GFR (African American) 146 ML/MIN (>60); Globulin 3.7 g/dL (1.3-3.2); Glucose 93 mg/dl (74-100); Total Protein,Serum 7.8 g/dl (6.3-8.2)
[2023-01-24 19:43] LABS: Calcium 9.6 mg/dl (8.4-10.2)
[2023-01-24 19:49] LABS: D-Dimer < 0.25 ug/mL (0.0-0.5)
[2023-01-24 20:00] LABS: T4 (Thyroxine) 13.3 ug/dl (5.53-11.0); Troponin I < 0.01 ng/ml (0.00-0.034)
[2023-01-24 20:02] LABS: HCG,Quantitative < 2 mIU/ml (0-5.42)
[2023-01-24 20:14] LABS: Thyroid Stimulating Hormone 1.65 uIU/mL (0.465-4.68)
[2023-01-24 21:56] VITALS: BP 128/74; PULSE 96; RESP 15; TEMP 36.5; O2SAT 99
--- NOTE | 2023-01-24 22:09 | PC.NURSE ---
on the phone with whom states they are on divert and unable to take the pt. Dr. Sainz requests to speak to our oncall surgeon. Dr. Wilkins paged at this time.
== END 2023-01-24 22:06 | disposition home or self-care (01) ==
PROVIDERS: Emergency Provider Emergency Medicine; PCP Nurse Practitioner
DX: R00.0 Tachycardia, unspecified (principal); R00.2 Palpitations; F32.9 Major depressive disorder, single episode, unspecified; F41.1 Generalized anxiety disorder; F90.9 Attention-deficit hyperactivity disorder, unspecified type; R07.89 Other chest pain
CPT/HCPCS: 71045; 80053; 84436; 84443; 84484; 84702; 85025; 85378; 93005; 96360; 99285

== ENCOUNTER → 2023-01-28 11:48 | Outpatient (CLI) | payer OTHER, SELFPAY | PROVIDERS: PCP Nurse Practitioner; Visit Provider Nurse Practitioner Family | DX: R00.2 Palpitations (principal) | CPT/HCPCS: 93270 ==

== ENCOUNTER → 2023-01-31 14:07 | Outpatient (CLI) | payer OTHER, SELFPAY ==
--- NOTE | 2023-01-31 15:35 | CA_ITS ---
APPROVED REPORT Exam: Exercise Treadmill Technologist: Shea La, Ht: 5 ft 1 in Wt: 257 lbs BSA: 2.10 m2 HR: 85 bpm BP: 124/61 mmHg Rhythm: NSR Medical History Medications: Vyvanse,,,,, Stress Test Details Test: Abel HR Resting HR: 82 bpm Max Heart Rate (APMHR): 194 bpm Max HR Achieved: 155 bpm Target HR (85% APMHR): 165 bpm % of APMHR: 80 Recovery HR: 107 bpm HR response to stress: Blunted HR response to stress BP Resting BP: 117.0/68.0 mmHg Max BP: 150.0/72.0 mmHg Recovery BP: 131.0/60.0 mmHg BP response to stress: Normal blood pressure response to stress. ECG Resting ECG: NSR, NS IVD, early repolarization Stress EC.[address] depression Arrhythmia: None Recovery ECG: Return to baseline within 3 minutes of recovery Recovery Arrhythmia: None Clinical Exercise duration: 05:15 min Highest Stage Achieved: II Exercise capacity: 7.0 METs Overall Exercise Capacity for Age: Poor Stress ECG Conclusion This was a suboptimal stress test as the patient was unable to achieve target HR. The patient was able to exercise for a total of 5 minutes, 15 seconds. She has a poor exercise capacity compared to age and sex matched peers. Max HR: 155 % of PM: 80% Max BP: 148/70 Test stopped due to: panic attack Symptoms: SOA, panic attack. No CP. Arrhythmias/Ectopy: None ST-T Changes: 0.5mm horizontal ST depression at peak exercise. Conclusion: Suboptimal and nondiagnostic ECG stress test due to inability to achieve target HR. Poor exercise capacity. 0.[address] depression at peak stress, suggestive of possible ischemia. GXT only (no imaging) As the target HR could not be achieved, as well as findings that are suggestive, but not conclusive, for ischemia, further evaluation for ischemia is recommended with alternative diagnostic modalities (e.g. CCTA or nuclear stress test). Test Summary REST . . . . . . . Sitting REST . . . . . . . Standing REST 04:34 0.0 0.0 82 . 117/ 68 . . Stage 1 01:00 10.0 1.7 115 . . . . Stage 1 02:00 10.0 1.7 120 . . . . Stage 1 03:00 10.0 1.7 127 . 150/ 72 . . Stage 2 01:00 12.0 2.5 140 . . . . Stage 2 02:00 12.0 2.5 150 . . . . Stage 2 02:15 12.0 2.5 154 . . . Stop exercise at 05:15 RECOVERY 01:00 0.0 0.0 130 . . . . RECOVERY 02:00 0.0 0.0 115 . . . . RECOVERY 03:00 0.0 0.0 108 . 137/ 69 . . RECOVERY 04:00 0.0 0.0 103 . 137/ 69 . . RECOVERY 05:00 0.0 0.0 107 . 137/ 69 . . RECOVERY 05:21 0.0 0.0 109 . 131/ 60 . . Electronically signed by : Rema Miller MD 02/17/2023 00:12:54
== END ==
LOC: RT 14:07
PROVIDERS: PCP Nurse Practitioner; Visit Provider Nurse Practitioner Family
DX: R07.9 Chest pain, unspecified (principal); R06.00 Dyspnea, unspecified
CPT/HCPCS: 93017

== ENCOUNTER 2023-04-02 17:41 | Emergency (ER) | payer OTHER, SELFPAY ==
--- NOTE | 2023-04-02 18:12 | EXP.UTC ---
Discharge Plan Disposition Patient Disposition: Home, Self-Care Condition: Good Prescriptions Prescriptions: New amoxicillin [amoxicillin] 500 mg tablet 500 mg PO TID 10 Days Qty: 30 0RF tivdaaekpqhgbzx-zznygmuct-UK [Bromfed DM] 2-30-10 mg/5 mL Syrup 5 ml PO Q6H PRN (Reason: Cough) Qty: 240 0RF methylprednisolone 4 mg Tablets,Dose Pack 4 mg PO DIRECTED Qty: 21 0RF No Action Vyvanse 30 mg capsule 30 mg PO DAILY Patient Comments: TAKE 1 CAPSULE BY MOUTH ONCE DAILY IN THE MORNING Referrals Follow up/Referrals: Aleah Torres APRN [Primary Care Provider] - See instructions Activity Restrictions/Add. Instructions Additional Instructions/Restrictions: Drink plenty of fluids. Take tylenol or ibuprofen for pain or fever. Take the medications as directed. Follow up with your regular doctor. GO TO THE ER FOR ANY WORSENING SYMPTOMS Clinical Impressions Clinical Impression: Sinusitis, Bronchitis Stand Alone Forms Stand Alone Forms: Work/School Release Instructions Patient Instructions: Sinusitis, Acute Bronchitis, DI for Sinusitis, DI for Acute Bronchitis Discharge ED Provider: Silvestre Conteh [facility] General Stated complaint: CONGESTION, SINUS Time Seen by Provider: 04/02/23 18:12 History of Present Illness Provider Complaint: She states that for the past 2 days she has had sinus congestion and a headache. Related Data Home Medications Medication Instructions Recorded Confirmed lisdexamfetamine 30 mg capsule 30 mg PO DAILY ADHD 11/01/22 01/28/23 (Vyvanse) Previous Rx's Medication Instructions Recorded amoxicillin 500 mg tablet 500 mg PO TID 10 days #30 tabs 04/02/23 qzqxhatoepydkjj-itekgkiwpdocrfb-LE 5 ml PO Q6H PRN Cough #240 mL 04/02/23 2 mg-30 mg-10 mg/5 mL oral syrup (Bromfed DM) methylprednisolone 4 mg tablets in 4 mg PO DIRECTED #21 tabs 04/02/23 a dose pack Allergies Allergy/AdvReac Type Severity Reaction Status Date / Time oxycodone Allergy Mild rash Verified 04/02/23 18:30 [facility] Disclaimer: The information contained in this section may have been updated after the patient was seen, as this information can be updated by other users. Medical History (Updated 04/02/23 @ 18:30 by Silvestre Conteh APRN) Abnormal EKG ADHD delivery delivered Chest pain Dyspnea Full dentures Generalized anxiety disorder History of anemia Major depressive disorder Morbid obesity Palpitations Sinus tachycardia Surgical History H/O abdominal supracervical subtotal hysterectomy History of section History of hysterectomy History of tubal ligation Previous section Social History Smoking Status: Never smoker second hand exposure: No alcohol intake: never substance use type: denies use and marijuana (has tried this before; maybe 3-4 times; nothing recent) current occupational status: unemployed Travel in the last 8 weeks: None household members: spouse and family housing: house number of children: 3 current occupational exposures/hazards: No caffeine: Yes ROS Obtained: Yes All systems reviewed & no additional complaints except as documented Constitutional Constitutional: Reports chills and Reports fever(s) Eyes Eyes: Denies eye discharge ENT Ears, Nose, Mouth, and Throat: Reports as per HPI Cardiovascular Cardiovascular: Denies chest pain Respiratory Respiratory: Denies chest congestion and Reports cough Gastrointestinal Gastrointestingal: Reports nausea; Denies abdominal pain, constipation, cramping, diarrhea or vomiting Musculoskeletal Musculoskeletal: Denies arthralgias Integumentary/Breasts Skin/Breast: Denies rash Neurologic Neurologic: Denies paresthesias Physical Exam General General appearance: alert and in no apparent distress Eye Eye exam: Present normal appearanc
[2023-04-02 18:15] VITALS: BP 147/74; PULSE 102; RESP 18; TEMP 36.8; O2SAT 100; BMI 47.2
[2023-04-02 18:19] LABS: UTC Strep Screen (Rapid) Negative (Negative)
[2023-04-02 18:38] VITALS: BP 147/74; PULSE 102; RESP 18; TEMP 36.8; O2SAT 100
== END 2023-04-02 18:38 | disposition home or self-care (01) ==
PROVIDERS: Emergency Provider Nurse Practitioner Family; PCP Nurse Practitioner
DX: J20.9 Acute bronchitis, unspecified (principal); J01.90 Acute sinusitis, unspecified; R51.9 Headache, unspecified; R09.81 Nasal congestion
CPT/HCPCS: 87880; 99212; 99214; G0463

== ENCOUNTER 2023-05-13 16:45 | Emergency (ER) | payer OTHER, SELFPAY ==
[2023-05-13 16:46] VITALS: BP 149/83; PULSE 130; RESP 20; TEMP 37.4; O2SAT 95; BMI 46.3
[2023-05-13 16:58] LABS: Coronavirus 19, PCR Not Detected (NotDetected); Influenza A, PCR Not Detected (NotDetected)
[2023-05-13 17:00] VITALS: BP 141/81; PULSE 119; O2SAT 99
--- NOTE | 2023-05-13 17:10 | PC.NURSE ---
Dr. Villatoro at [facility] for patient eval
--- NOTE | 2023-05-13 17:13 | HMH.EDGENADL ---
Discharge Plan Disposition Patient Disposition: Home, Self-Care Prescriptions Prescriptions: New meulhtestkmqyhc-fqugbwhhn-LA [Bromfed DM] 2-30-10 mg/5 mL syrup 5 ml PO Q6H PRN (Reason: cold symptoms) Qty: 118 0RF No Action Vyvanse 30 mg capsule 30 mg PO DAILY Patient Comments: TAKE 1 CAPSULE BY MOUTH ONCE DAILY IN THE MORNING amoxicillin [amoxicillin] 500 mg tablet 500 mg PO TID 10 Days Qty: 30 0RF zujuwsjdzwelrdo-ruzlivtnc-VQ [Bromfed DM] 2-30-10 mg/5 mL Syrup 5 ml PO Q6H PRN (Reason: Cough) Qty: 240 0RF methylprednisolone 4 mg Tablets,Dose Pack 4 mg PO DIRECTED Qty: 21 0RF Referrals Follow up/Referrals: Aleah Torres APRN [Primary Care Provider] - See instructions Activity Restrictions/Add. Instructions Additional Instructions/Restrictions: At this time it was felt you are safe to be discharged home. If new or worsening symptoms please do not hesitate to return the emergency department. Please take Tylenol and ibuprofen as needed for fever and pain. Please take your medication as prescribed. Clinical Impressions Clinical Impression: Influenza B Discharge ED Provider: Cy Villatoro General Adult HPI General Chief complaint: Upper Respiratory Infection Stated complaint: SOA, TOMPKINS Time Seen by Provider: 05/13/23 16:55 Mode of Arrival: Ambulatory Source of Information: Patient Limitations: No Limitations Description of Symptoms (Recalled from ER Triage Doc. by RN): States she was diagnosed with bronchitis recently and did not take her antibiotic. States that she has a cough, headache, and chills for 2-3 days. History of Present Illness HPI narrative: Patient is a 27-year-old female with no chronic comorbidities presents emergency department for evaluation of cough, myalgias. Onset was acute, over the last 48 hours. Adequate p.o. intake and urine output, no vomiting. No chest pain. No other acute complaints at this time. Related Data Home Medications Medication Instructions Recorded Confirmed lisdexamfetamine 30 mg capsule 30 mg PO DAILY ADHD 11/01/22 01/28/23 (Vyvanse) Previous Rx's Medication Instructions Recorded amoxicillin 500 mg tablet 500 mg PO TID 10 days #30 tabs 04/02/23 svrgjllfyxgzwmz-sirnjeeckykquor-DI 5 ml PO Q6H PRN Cough #240 mL 04/02/23 2 mg-30 mg-10 mg/5 mL oral syrup (Bromfed DM) methylprednisolone 4 mg tablets in 4 mg PO DIRECTED #21 tabs 04/02/23 a dose pack vpjhnqbonccbweg-ltwbxuqnusnmyes-WN 5 ml PO Q6H PRN cold symptoms #118 05/13/23 2 mg-30 mg-10 mg/5 mL oral syrup mL (Bromfed DM) Allergies Allergy/AdvReac Type Severity Reaction Status Date / Time oxycodone Allergy Mild rash Verified 04/02/23 18:30 PFS PFS Disclaimer: The information contained in this section may have been updated after the patient was seen, as this information can be updated by other users. Medical History (Updated 05/13/23 @ 18:12 by Cy Villatoro MD) Abnormal EKG ADHD delivery delivered Chest pain Dyspnea Full dentures Generalized anxiety disorder History of anemia Major depressive disorder Morbid obesity Palpitations Sinus tachycardia Surgical History H/O abdominal supracervical subtotal hysterectomy History of section History of hysterectomy History of tubal ligation Previous section Social History Smoking Status: Never smoker second hand exposure: No alcohol intake: never substance use type: denies use and marijuana (has tried this before; maybe 3-4 times; nothing recent) current occupational status: unemployed Travel in the last 8 weeks: None household members: spouse and family housing: house number of children: 3 current occupational exposures/hazards: No caffeine: Yes ROS Obtained: Yes Systems reviewed as appropriate & no additional complaints except as
[2023-05-13 17:30] VITALS: BP 125/80; PULSE 118; RESP 20; O2SAT 96
[2023-05-13 18:07] LABS: Influenza B, PCR Detected (NotDetected)
[2023-05-13 18:22] VITALS: BP 139/95; PULSE 120; RESP 18; TEMP 36.7; O2SAT 97
== END 2023-05-13 18:23 | disposition home or self-care (01) ==
PROVIDERS: Emergency Provider Emergency Medicine; PCP Nurse Practitioner
DX: J10.1 Influenza due to other identified influenza virus with other respiratory manifestations (principal); R05.9 Cough, unspecified
CPT/HCPCS: 87636; 99283

== ENCOUNTER 2023-05-18 10:28 | Emergency (ER) | payer OTHER, SELFPAY ==
--- NOTE | 2023-05-18 10:36 | ED_ITS ---
Discharge Plan Disposition Patient Disposition: Home, Self-Care Condition: Good Prescriptions Prescriptions: New azithromycin [Zithromax] 250 mg tablet 250 mg PO UD DOSE PK Qty: 6 0RF Rx Instructions: Take two (2) tablets today, then one (1) tablet days #2 thru #5 methylprednisolone 4 mg Tablets,Dose Pack 4 mg PO DIRECTED 6 Days Qty: 21 0RF Rx Instructions: Take 1 pack as directed for 6 days [id number] [Bromfed DM] 2-30-10 mg/5 mL Syrup 5 ml PO Q6H PRN (Reason: Cough) Qty: 240 0RF No Action Vyvanse 30 mg capsule 50 mg PO DAILY Patient Comments: TAKE 1 CAPSULE BY MOUTH ONCE DAILY IN THE MORNING Referrals Follow up/Referrals: Aleah Torres APRN [Primary Care Provider] - See instructions Activity Restrictions/Add. Instructions Additional Instructions/Restrictions: Drink plenty of fluids. Take tylenol or ibuprofen for pain or fever. Take the medications as directed. Follow up with your regular doctor. GO TO THE ER FOR ANY WORSENING SYMPTOMS Clinical Impressions Clinical Impression: Acute bronchitis Instructions Patient Instructions: Acute Bronchitis, DI for Acute Bronchitis Discharge ED Provider: Silvestre Conteh [facility] General Stated complaint: flu+ 1wk cough with stabbing pain Time Seen by Provider: 05/18/23 10:36 History of Present Illness Provider Complaint: She states that for the past 1 week she has had sinus congestion, chest congestion, and chest pain with coughing and deep breathing. Related Data Home Medications Medication Instructions Recorded Confirmed lisdexamfetamine 30 mg capsule 50 mg PO DAILY ADHD 11/01/22 05/18/23 (Vyvanse) Previous Rx's Medication Instructions Recorded azithromycin 250 mg tablet 250 mg PO UD DOSE PK #6 tabs 05/18/23 (Zithromax) vwlaifglcjajood-[id number] 5 ml PO Q6H PRN Cough #240 mL 05/18/23 2 mg-30 mg-10 mg/5 mL oral syrup (Bromfed DM) methylprednisolone 4 mg tablets in 4 mg PO DIRECTED 6 days #21 tabs 05/18/23 a dose pack Allergies Allergy/AdvReac Type Severity Reaction Status Date / Time oxycodone Allergy Mild rash Verified 04/02/23 18:30 [facility] Disclaimer: The information contained in this section may have been updated after the patient was seen, as this information can be updated by other users. Medical History (Updated 05/18/23 @ 11:11 by Silvestre Conteh APRN) Abnormal EKG ADHD delivery delivered Chest pain Dyspnea Full dentures Generalized anxiety disorder History of anemia Major depressive disorder Morbid obesity Palpitations Sinus tachycardia Surgical History H/O abdominal supracervical subtotal hysterectomy History of section History of hysterectomy History of tubal ligation Previous section Social History Smoking Status: Never smoker second hand exposure: No alcohol intake: never substance use type: denies use and marijuana (has tried this before; maybe 3-4 times; nothing recent) current occupational status: unemployed Travel in the last 8 weeks: None household members: spouse and family housing: house number of children: 3 current occupational exposures/hazards: No caffeine: Yes ROS Obtained: Yes All systems reviewed & no additional complaints except as documented Constitutional Constitutional: Reports poor appetite Eyes Eyes: Reports system reviewed and no additional complaints, except as documented ENT Ears, Nose, Mouth, and Throat: Reports as per HPI Cardiovascular Cardiovascular: Reports system reviewed and no additional complaints, except as documented and Denies chest pain Respiratory Respiratory: Denies shortness of breath, Denies chest congestion, Reports cough, Denies stridor and Denies wheezing Gastrointestinal Gastrointestingal: Reports system reviewed and no additional complaints, except as documented; Denies abdominal pain, diarrhea or vomiting Musculoskeletal Musculoskeletal: Reports system reviewed and no additional complaints, except as documented and Denies arthralgias Integumentary/Breasts Skin/Breast: Reports system reviewed and no additional complaints, except as documented and Denies rash Neurologic Neurologic: Denies paresthesias Allergic/Immunologic Allergic/Immunologic: Denies wheezing Physical Exam General General appearance: alert and in no apparent distress Eye Eye exam: Present normal appearance, PERRL and EOMI ENT ENT exam: Present mucous membranes moist and normal external ear exam Expanded ENT Exam External ear exam: Present normal external inspection TM/Canal exam: Bilateral TM: erythema and bulging Nose exam: Absent sinus tenderness Nasal speculum exam: Bilateral: normal Mouth exam: Present normal external inspection; Absent drooling Teeth exam: Present normal inspection Throat exam: Present tonsillar erythema and tonsillomegaly Neck Neck exam: Present normal inspection, full ROM and trachea midline; Absent tenderness, lymphadenopathy or thyromegaly Chest Chest inspection: Present normal inspection and symmetric chest wall rise; Absent tenderness or rash Respiratory Respiratory exam: Present normal lung sounds bilaterally; Absent respiratory distress, wheezes, stridor or accessory muscle use Cardiovascular Cardiovascular exam: Present regular rate, normal rhythm and normal heart sounds Abdominal Exam Abdominal exam: Present soft; Absent distention, tenderness, guarding, rebound or rigidity Extremities Exam Extremities exam: Present normal inspection, full ROM and normal capillary refill; Absent tenderness or calf tenderness Back Exam Back exam: Present normal inspection and full ROM; Absent tenderness Neurological Exam Neurological exam: Present alert and oriented X3 Psychiatric Psychiatric exam: Present normal affect and normal mood Skin Skin exam: Present warm, dry, intact and normal color Lymphatic Lymphatic Findings: no adenopathy Medical Decision Making Medical Records Medical records reviewed: No I reviewed the patient's medical records. Willi Inquiry Pt receiving controlled substance: No Lab Data Lab results reviewed: Yes I reviewed the patient's lab results.
--- NOTE | 2023-05-18 10:41 | XR_ITS ---
PROCEDURE INFORMATION: Exam: XR Chest Exam date and time: 05/18/2023 10:37 AM Age: 27 years old Clinical indication: Cough and other: Cp TECHNIQUE: Imaging protocol: Radiologic exam of the chest. Views: 2 views. COMPARISON: CR XR CHEST PORTABLE 01/24/2023 8:06 PM FINDINGS: Lungs: No focal airspace disease. Pleural spaces: Unremarkable. No pleural effusion. No pneumothorax. Heart/Mediastinum: Cardiomediastinal silhouette is within normal limits. Bones/joints: Unremarkable. IMPRESSION: No acute cardiopulmonary abnormality.
[2023-05-18 10:46] VITALS: BP 145/83; PULSE 98; RESP 20; TEMP 36.7; O2SAT 97; BMI 41.1
[2023-05-18 11:12] VITALS: BP 145/83; PULSE 98; RESP 20; TEMP 36.7; O2SAT 97
== END 2023-05-18 11:16 | disposition home or self-care (01) ==
PROVIDERS: Emergency Provider Nurse Practitioner Family; PCP Nurse Practitioner
DX: J20.9 Acute bronchitis, unspecified (principal); R07.1 Chest pain on breathing; R09.89 Other specified symptoms and signs involving the circulatory and respiratory systems; R05.8 Other specified cough; R09.81 Nasal congestion
CPT/HCPCS: 71046; 99212; 99214; G0463

== ENCOUNTER 2023-07-31 11:41 | Emergency (ER) | payer OTHER, SELFPAY ==
[2023-07-31 12:00] VITALS: BP 125/79; PULSE 89; RESP 18; TEMP 36.6; O2SAT 99; BMI 45.3
--- NOTE | 2023-07-31 12:06 | EXP.UTC ---
Discharge Plan Disposition Patient Disposition: Home, Self-Care Condition: Good Prescriptions Prescriptions: New ondansetron 4 mg Tablet,Disintegrating 4 mg PO Q8H PRN (Reason: Nausea) Qty: 12 0RF dicyclomine 20 mg tablet 20 mg PO TID PRN (Reason: abdominal pain) Qty: 20 0RF No Action Vyvanse 30 mg capsule 50 mg PO DAILY Patient Comments: TAKE 1 CAPSULE BY MOUTH ONCE DAILY IN THE MORNING Referrals Follow up/Referrals: Aleah Torres APRN [Primary Care Provider] - See instructions Activity Restrictions/Add. Instructions Additional Instructions/Restrictions: Drink plenty of fluids. Take tylenol or ibuprofen for pain or fever. Take the medications as directed. Follow up with your regular doctor. GO TO THE ER FOR ANY WORSENING SYMPTOMS The zofran (ondesetron) and dicyclomine (bentyl) can make you drowsy, so don't drive or operate heavy machinery after taking it. Clinical Impressions Clinical Impression: Gastroenteritis Instructions Patient Instructions: DI for Viral Gastroenteritis -- Adult, Ondansetron, Dicyclomine Discharge ED Provider: Silvestre Conteh [facility] General Stated complaint: abd pain, nausea Time Seen by Provider: 07/31/23 12:06 History of Present Illness Provider Complaint: She states that since this morning she has had nausea, vomiting, abdominal cramping at times, and diarrhea. He has also had some chills and body aches, but no documented fever. Related Data Home Medications Medication Instructions Recorded Confirmed lisdexamfetamine 30 mg capsule 50 mg PO DAILY ADHD 11/01/22 07/31/23 (Vyvanse) Previous Rx's Medication Instructions Recorded dicyclomine 20 mg tablet 20 mg PO TID PRN abdominal pain 07/31/23 #20 tabs ondansetron 4 mg disintegrating 4 mg PO Q8H PRN Nausea #12 tabs 07/31/23 tablet Allergies Allergy/AdvReac Type Severity Reaction Status Date / Time oxycodone Allergy Mild rash Verified 07/31/23 12:18 [facility] Disclaimer: The information contained in this section may have been updated after the patient was seen, as this information can be updated by other users. Medical History (Updated 07/31/23 @ 12:48 by Silvestre Wero, OB GYN PHYSICIAN ASSISTANT) Palpitations ADHD History of anemia Major depressive disorder Generalized anxiety disorder Full dentures Dyspnea Chest pain Morbid obesity Abnormal EKG Sinus tachycardia delivery delivered Surgical History History of hysterectomy History of section H/O abdominal supracervical subtotal hysterectomy History of tubal ligation Previous section Social History Smoking Status: Never smoker second hand exposure: No alcohol intake: never substance use type: denies use and marijuana (has tried this before; maybe 3-4 times; nothing recent) current occupational status: unemployed Travel in the last 8 weeks: None household members: spouse and family housing: house number of children: 3 current occupational exposures/hazards: No caffeine: Yes ROS Obtained: Yes All systems reviewed & no additional complaints except as documented Constitutional Constitutional: Denies chills, Denies fever(s) and Reports poor appetite ENT Ears, Nose, Mouth, and Throat: Denies dizziness and Denies sore throat Cardiovascular Cardiovascular: Denies dyspnea Respiratory Respiratory: Denies chest congestion, Denies cough and Denies dyspnea Genitourinary Female Genitourinary: Denies difficulty voiding, Denies dysuria, Denies hematuria, Denies urinary frequency, Denies urinary incontinence, Denies urinary hesitancy and Denies urinary urgency Musculoskeletal Musculoskeletal: Denies arthralgias Integumentary/Breasts Skin/Breast: Denies rash Neurologic Neurologic: Denies dizziness Physical Exam General General appearance: alert and in no apparent distress Head Head exam: atraumatic and normocephalic Eye Eye exam: Present normal appearance, PERRL and EOMI ENT ENT exam: Present normal exam, normal oropharynx, mucous membranes moist, TM's normal bilaterally and normal external ear exam Neck Neck exam: Present normal inspection, full ROM and trachea midline; Absent tenderness, meningismus or lymphadenopathy Chest Chest inspection: Present normal inspection and symmetric chest wall rise; Absent tenderness, rash or abscess Respiratory Respiratory exam: Present normal lung sounds bilaterally; Absent respiratory distress, wheezes or stridor Cardiovascular Cardiovascular exam: Present regular rate and normal rhythm; Absent irregular rhythm, systolic murmur, diastolic murmur or JVD Abdominal Exam Abdominal exam: Present soft and hyperactive bowel sounds; Absent distention, tenderness, guarding, rebound, rigidity, psoas sign, obturator sign, heel tap sign, Ga's sign, Rovsing's sign or tenderness at McBurney's Point Extremities Exam Extremities exam: Present normal inspection and full ROM; Absent tenderness Back Exam Back exam: Present normal inspection and full ROM; Absent tenderness, CVA tenderness (R) or CVA tenderness (L) Neurological Exam Neurological exam: Present alert, oriented X3 and CN II-XII intact Psychiatric Psychiatric exam: Present normal affect and normal mood Skin Skin exam: Present warm, dry, intact and normal color Lymphatic Lymphatic Findings: no adenopathy Medical Decision Making Medical Records Medical records reviewed: No I reviewed the patient's medical records. Iwlli Inquiry Pt receiving controlled substance: No Lab Data Lab results reviewed: Yes I reviewed the patient's lab results.
[2023-07-31 12:18] LABS: UTC Influenza A Antigen Negative (Negative); UTC Influenza B Antigen Negative (Negative)
[2023-07-31 12:52] VITALS: BP 125/79; PULSE 89; RESP 18; TEMP 36.6; O2SAT 99
== END 2023-07-31 12:52 | disposition home or self-care (01) ==
PROVIDERS: Emergency Provider Nurse Practitioner Family; PCP Nurse Practitioner
DX: K52.9 Noninfective gastroenteritis and colitis, unspecified (principal); R10.84 Generalized abdominal pain; R68.83 Chills (without fever); F32.9 Major depressive disorder, single episode, unspecified; F41.1 Generalized anxiety disorder
CPT/HCPCS: 87804; 99212; 99214; G0463

== ENCOUNTER 2023-09-11 15:07 | Outpatient (CLI) | payer OTHER, SELFPAY ==
[2023-09-13 06:13] LABS: HBsAg Screen Negative (Negative); HCV Ab Non Reactive (Non Reactive); HIV Screen 4th Generation wRfx Non Reactive (Non Reactive); Hep A Ab, IGM Negative (Negative); Hep B Core Ab, IgM Negative (Negative)
[2023-09-13 13:26] LABS: Rapid Plasma Reagin Ab Titer Non Reactive titer (NonRea<1:1)
== END 2023-09-11 23:59 | disposition home or self-care (01) ==
LOC: LAB 15:08
PROVIDERS: PCP Nurse Practitioner; Visit Provider Obstetrics & Gynecology
DX: Z72.51 High risk heterosexual behavior (principal); Z11.4 Encounter for screening for human immunodeficiency virus [HIV]
CPT/HCPCS: 36415; 80074; 86593; 86703; G0432

== ENCOUNTER 2023-12-29 05:40 | Emergency (ER) | payer SELFPAY ==
[2023-12-29 05:53] VITALS: BP 147/86; PULSE 101; RESP 18; TEMP 36.7; O2SAT 100; BMI 47.2
--- NOTE | 2023-12-29 06:01 | ED_ITS ---
Discharge Plan Disposition Patient Disposition: Xfer Short-Term Hosp Condition: Good Prescriptions Prescriptions: No Action dextroamphetamine-amphetamine [Adderall XR] 10 mg capsule,extended release 24hr 10 mg PO DAILY Referrals Follow up/Referrals: Aleah Torres APRN [Primary Care Provider] - See instructions Activity Restrictions/Add. Instructions Additional Instructions/Restrictions: Go directly to [facility] ER, do not make stops along the way. They will see you for ophthalmology evaluation. Clinical Impressions Clinical Impression: Corneal ulcer, Photophobia of right eye Stand Alone Forms Stand Alone Forms: Transfer Record - ED Print Language Print Language: Sami Discharge ED Provider: Carlos Geiger General Adult HPI General Chief complaint: Eye Problems Stated complaint: pain in eye Time Seen by Provider: 12/29/23 05:41 Mode of Arrival: Ambulatory Source of Information: Patient Limitations: No Limitations Description of Symptoms (Recalled from ER Triage Doc. by RN): Pt ambulatory to ED with cc of eye injury. Pt states wearing her contacts x4 days without removing her contacts. Pt states both eyes hurt but the right eyes hurts more. Pt states removing her contacts yesterday at approx 1700. Pt states having a headache History of Present Illness HPI narrative: 28-year-old female presents to the ER for complaints of eye pain, photophobia. Patient reports she wore her contacts for 4 days straight without removing them. She states she took them out proximately 12 hours prior to arrival. She reports both eyes hurt but the right eye hurts more. Patient reports no fevers or discharge other than tearing. She states she has a headache and is sensitive to light. She does not have a history of recurrent eye infections. Related Data Home Medications ?Medication ?Instructions ?Recorded ?Confirmed dextroamphetamine-amphetamine ER 10 mg PO DAILY 09/11/23 09/11/23 10 mg 24hr capsule,extend release (Adderall XR) Allergies Allergy/AdvReac Type Severity Reaction Status Date / Time oxycodone Allergy Mild rash Verified 09/11/23 14:22 [facility] Disclaimer: The information contained in this section may have been updated after the patient was seen, as this information can be updated by other users. Medical History (Updated 12/29/23 @ 06:39 by Carlos Geiger MD) Palpitations ADHD History of anemia Major depressive disorder Generalized anxiety disorder Full dentures Dyspnea Chest pain Morbid obesity Abnormal EKG Sinus tachycardia delivery delivered Surgical History (Updated 09/11/23 @ 14:31 by Leslie Licea CMA) History of hysterectomy History of section H/O abdominal supracervical subtotal hysterectomy History of tubal ligation Previous section Family History Other No significant family history Social History Smoking Status: Never smoker second hand exposure: No alcohol intake: never substance use type: denies use and marijuana (has tried this before; maybe 3-4 times; nothing recent) current occupational status: unemployed Travel in the last 8 weeks: None household members: spouse and family housing: house number of children: 3 current occupational exposures/hazards: No caffeine: Yes ROS Obtained: Yes All systems reviewed & no additional complaints except as documented Constitutional Constitutional: Denies chills, Denies fever(s), Denies headache(s) and Denies weakness Eyes Eyes: Reports blurry vision, Reports irritation, Reports eye pain and Reports photophobia ENT Ears, Nose, Mouth, and Throat: Denies dizziness, Denies headache(s), Denies nasal congestion and Denies sore throat Cardiovascular Cardiovascular: Denies chest pain, Denies dyspnea and Denies leg edema Respiratory Respiratory: Denies cough and Denies dyspnea Gastrointestinal Gastrointestingal: Denies constipation, diarrhea, nausea or vomiting Genitourinary Female Genitourinary: Denies dysuria Musculoskeletal Musculoskeletal: Denies arthralgias, Denies myalgias, Denies numbness and Denies tingling Integumentary/Breasts Skin/Breast: Denies change in pigmentation Neurologic Neurologic: Denies dizziness, Denies headache(s), Denies numbness, Denies tingling and Denies weakness Physical Exam General General appearance: alert and in no apparent distress Head Head exam: atraumatic and normocephalic Eye Eye exam: Present PERRL, EOMI, conjunctival redness (Right greater than left) and other (Visual acuity 20/200 in each eye individually, 20/100 with both eyes, pressure OD 16, OS 19, fluorescein stain positive for approximately 1.5-2 mm corneal ulceration just barely inferior to the exact center of the right cornea); Absent nystagmus ENT ENT exam: Present mucous membranes moist Neck Neck exam: Present normal inspection and full ROM Chest Chest inspection: Present symmetric chest wall rise Respiratory Respiratory exam: Absent respiratory distress or stridor Cardiovascular Cardiovascular exam: Present regular rate and normal rhythm Extremities Exam Extremities exam: Present full ROM Neurological Exam Neurological exam: Present alert and oriented X3; Absent motor sensory deficit Psychiatric Psychiatric exam: Present normal affect and normal mood Skin Skin exam: Present warm and dry Medical Decision Making Willi Inquiry Pt receiving controlled substance: No Vital Signs: 12/29/23 05:53 Temperature 98.1 F Temperature Source Oral Pulse Rate [Left Radial] 101 H Respiratory Rate 18 Blood Pressure [Right Arm] 147/86 H Blood Pressure Mean [Right Arm] 106 02 Sat by Pulse Oximetry 100 Oxygen Delivery Method Room Air Orders (Tests/Meds): ED MEDICATIONS Generic Name Dose Route Start Last Admin Trade Name Freq PRN Reason Stop Dose Admin Tetracaine HCl 0 ml 12/29/23 06:38 Tetracaine 0.5% Opth Annelise 15ml OP 12/29/23 06:39 ONCE ONE Medical Decision Narrative: In summary, this 28-year-old female presents to the emergency department today with eye pain, blurry vision, eye redness, photophobia. On initial evaluation patient is hemodynamically stable, afebrile, significant conjunctival injection in the eyes, right greater than left, extraocular movements intact, pupils normal, no hyphema or hypopyon. Differential diagnosis includes but is not limited to corneal abrasion, corneal ulcer, conjunctivitis, acute angle glaucoma. Patient's intraocular pressure is normal bilaterally, visual acuity as documented is reportedly at approximately baseline without patient's contacts. Fluorescein stain notable for corneal ulceration nearly at the center of the cornea in the right eye. I do not believe labs or imaging are necessary at this time, however I do have concerns for the location of this ulcer and consulted ophthalmology for recommendations given it is in the center of the visual field of the right eye. I discussed this case with Dr. Judd Who recommends transfer to for corneal scrapings before starting the patient on any antibiotics. She does not recommend any further treatment in the ER at this time. Patient was accepted to [facility] as an ED to ED transfer for evaluation. Accepting physician is Dr. Judd, Dr. Quinn. Patient is appropriate for transfer by private vehicle. I instructed patient and the family member who will be driving her to go directly to [facility], to not make stops along the way. They understand they are going there for ophthalmology evaluation. Patient and family are amenable to this plan. Patient was transferred in stable condition. Critical Care Critical Care Time Critical Care Time: No
--- NOTE | 2023-12-29 06:03 | PC.NURSE ---
Eye acuity test right eye 20/200 left eye 20/200 both eyes 20/100 uncorrected
--- NOTE | 2023-12-29 06:31 | PC.NURSE ---
call placed to [facility] for consult for optomology. md speaking with them at this time.
[2023-12-29] MEDS: FLUORESCEIN SODIUM 1MG STRIP 1 MG OP (06:39)
[2023-12-29] MEDS: TETRACAINE 0.5% OPTH SOL 15ML OP (06:40)
[2023-12-29 06:47] VITALS: BP 141/82; PULSE 81; RESP 18; TEMP 36.7; O2SAT 98
--- NOTE | 2023-12-29 06:47 | PC.NURSE ---
report called to Tatyana charge nurse
== END 2023-12-29 06:48 | disposition short-term general hospital (02) ==
PROVIDERS: Emergency Provider Emergency Medicine; PCP Nurse Practitioner
DX: H16.011 Central corneal ulcer, right eye (principal); H53.141 Visual discomfort, right eye
CPT/HCPCS: 99285

== ENCOUNTER 2024-12-14 14:32 | Emergency (ER) | payer OTHER, SELFPAY ==
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
--- OUTSIDE RECORDS SUMMARY | 2024-11-27 14:30 | XMS_ITS | Encounter Summary ---
Author Organization [facility] Address [address] [place] [address] Care Team Providers Care Fractionating Still Operator Name Role Phone Aleah Torres John PARRA Primary Care Provider [phone] Encounter Details Date Type Department Care Team (Latest Contact Info) Description 11/27/2024 2:30 PM EDT Clinical Support [facility] [address] [place] [address] [place] [address] Encounter for pre-employment health screening examination Social History Tobacco Use Types Packs/Day Years [...] as of this encounter Progress Notes * Vibha Moses MA - 11/27/2024 2:30 PM EDT Venipuncture Blood Specimen Collection Venipuncture performed in left arm by Vibha Moses MA with good hemostasis. Patient tolerated the procedure well without complications. 11/27/24 Vibha Moses MA documented in this encounter Plan of Treatment Upcoming Encounters Date Type Department Care Team (Late st Contact Info) Description 12/23/2024 4:00 PM EDT Office Visit [facility] [address] [place] [address] [place] [address] Aleah Torres, TANKAGE GRINDER [address] [place] [address] 01/26/2025 9:00 AM EDT Office Visit [facility] [address] [place] [address] [place] [address] Roberto Castellanos, TANKAGE GRINDER [address] [place] [address] 03/02/2025 10:30 AM EDT Office Visit [facility] [address] [place] [address] Lacey Gupta, TANKAGE GRINDER [address] [place] [address] documented as of this encounter Procedures Procedure Name Priority Date/Time Associated Diagnosis Comments CONV WRITTEN AUTHORIZATION Routine 11/27/2024 12:00 AM EDT MEASLES/MUMPS/RUBELLA IMMUNITY ([facility]) Routine 11/27/2024 12:00 AM EDT Encounter for pre-employment health screening examination CONV HEPATITIS B CORE AB W/REFLEX Routine 11/27/2024 12:00 AM EDT QUANTIFERON TB GOLD PLUS (KIT TEST) Routine 11/27/2024 12:00 AM EDT Encounter for pre-employment health screening examination HEPATITIS C ANTIBODY Routine 11/27/2024 12:00 AM EDT VARICELLA ZOSTER ANTIBODY, IGG Routine 11/27/2024 12:00 AM EDT Encounter for pre-employment health screening examination documented in this encounter Results * Written Authorization (11/27/2024 12:00 AM EDT) Written Authorization Comment [facility] Comment: Written Authorization Received. Authorization received from Vibha Moses for Link Request on 12-02-2024 Logged by Milo Phoenix 11/27/2024 11/27/2024 Comment:Blood Release to [facility] - 12/03/2024 6:06 AM EDT Performed at: - [address] [id number] Assistant Professor Of Criminal Justice: Maximus Pedersen PhD, Phone: [phone] Aleahisela Torres TANKAGE GRINDER LAB BLOOD ORDERABLES Final Result Performing Organization Address [facility]/ZIP Co de Phone Number [facility] [address] [id number], [place] [phone] [facility] [address] [place] [address], [place] [phone] * Hepatitis B Core Ab W/Reflex (11/27/2024 12:00 AM EDT) Hep B Core Total Ab Negative Negative [facility] 11/27/2024 11/27/2024 Comment:Blood Release to [facility] - 12/03/2024 6:06 AM EDT Performed at: [address] [id number] Assistant Professor Of Criminal Justice: Maximus Pedersen PhD, Phone: [phone] Aleah Torres APRN LAB BLOOD ORDERABLES Final Result Performing Organization Address City/[facility]/ZIP Co de Phone Number [facility] [address] [place] [address], [facility] [address] [place] [address], * Hepatitis C Antibody (11/27/2024 12:00 AM EDT) Pathologist [facility] Hep C Virus Ab Non Reactive Non Reactive [facility] Comment: HCV antibody alone does not differentiate between previously resolved infection and active infection. Equivocal and Reactive HCV antibody results should be followed up with an HCV RNA test to support the diagnosis of active HCV infection. 11/27/2024 11/27/2024 Comment:Blood Release to maru Ribeiro [facility] (AMBULATORY) - 12/01/2024 7:07 PM EDT Performed at: - [address] [id number] Assistant Professor Of Criminal Justice: Maximus Pedersen PhD, Phone: [phone] Aleah Torres APRN LAB BLOOD ORDERABLES Final Result [facility] (AMBULATORY) [address] [place] [address], [facility] [address] [place] [address], * QuantiFERON TB Gold (11/27/2024 12:00 AM EDT) [facility] QuantiFERON Incubation Incubation performed. [facility] QuantiFERON Criteria Comment [facility] Comment: QuantiFERON-TB Gold Plus is a qualitative indirect test for M tuberculosis infection (including disease) and is intended for use in conjunction with risk assessment, radiography, and other medical and diagnostic evaluations. The QuantiFERON-TB Gold Plus result is determined by subtracting the Nil value from either TB antigen (Ag) value. The Mitogen tube serves as a control for the test. QUANTIFERON TB1 AG VALUE 0.13 IU/mL [facility] QUANTIFERON TB2 AG VALUE 0.12 IU/mL [facility] QuantiFERON Nil Value 0.06 IU/mL [facility] QuantiFERON Mitogen Value >10.00 IU/mL [facility] QUANTIFERON-TB GOLD PLUS Negative Negative [facility] Comment: No response to M tuberculosis antigens detected. Infection with M tuberculosis is unlikely, but high risk individuals should be considered for additional testing (ATS/IDSA/CDC Clinical Practice Guidelines, 2017). The reference range is an Antigen minus Nil result of <0.35 IU/mL. Chemiluminescence immunoassay methodology Blood 11/27/2024 11/27/2024 Comment:Blood Release to [facility] (AMBULATORY) - 12/01/2024 7:07 PM EDT Performed at: - [address] [id number] Assistant Professor Of Criminal Justice: Maximus Pedersen PhD, Phone: [phone] Aleah Torres APRN LAB BLOOD ORDERABLES Final Result Performing Organization Address City/[facility]/ZIP Co de Phone Number [facility] ([facility]) [address] [place], [place] [id number], [place] [phone] [facility] [address] [place], [place] [id number], [place] [phone] * Varicella zoster antibody, IgG (11/27/2024 12:00 AM EDT) [facility] Varicella IgG Reactive Non Reactive [facility] Comment: Please note reference interval change A Reactive result is considered evidence of immunity to VZV. Reactive indicates that VZV IgG was detected consistent with previous infection and/or vaccination. A Non Reactive result indicates that VZV IgG was not detected suggesting that immunity has not been acquired. Blood 11/27/2024 11/27/2024 Comment:Blood Release to [facility] (AMBULATORY) - 12/01/2024 7:07 PM EDT Performed at: [address] [place] [id number] Assistant Professor Of Criminal Justice: Maximus Pedersen PhD, Phone: [phone] Aleah Torres APRN LAB BLOOD ORDERABLES Final Result Performing Organization Address City/[facility]/ZIP Co de Phone Number [facility] (AMBULATORY) [address] [place] [address], [facility] [address] [place] [address], * Measles / Mumps / Rubella Immunity (11/27/2024 12:00 AM EDT) Pathologist [facility] Rubella Antibodies, IgG 2.01 Immune >0.99 index [facility] Comment: Non-immune <0.90 Equivocal 0.90 - 0.99 Immune >0.99 Rubeola IgG 117.0 Immune >16.4 AU/mL [facility] Comment: Negative <13.5 Equivocal 13.5 - 16.4 Positive >16.4 Presence of antibodies to Rubeola is presumptive evidence of immunity except when acute infection is suspected. Mumps IgG 50.0 Immune >10.9 AU/mL [facility] Comment: Negative <9.0 Equivocal 9.0 - 10.9 Positive >10.9 A positive result generally indicates past exposure to Mumps virus or previous vaccination. Blood 11/27/2024 11/27/2024 Comment:Blood Release to [facility]ema [facility] (AMBULATORY) - 12/01/2024 7:07 PM EDT Performed at: 01 - [address] [id number] Assistant Professor Of Criminal Justice: Maximus Pedersen PhD, Phone: [phone] Aleah Torres APRN LAB BLOOD ORDERABLES Final Result [facility] (AMBULATORY) [address] [place] [address], [facility] [address] [place] [address], documented in this encounter Visit Diagnoses Diagnosis Encounter for pre-employment health screening examination documented in this encounter Care Teams Fractionating Still Operator Relationship Specialty Start Date End Date Aleah Torres APRN [address] [place] [address] PCP - General Family Medicine 08/27/22 documented as of this encounter
--- NOTE | 2024-12-14 14:33 | ECG_ITS ---
APPROVED REPORT Exam: Resting ECG HR:104 bpm ECG Measurements Heart Rate 104 AXES MT 139 P 57 QRSd 98 QRS 49 QT 328 T 72 QTc 388 Conclusion SINUS TACHYCARDIA INCOMPLETE RIGHT BUNDLE BRANCH BLOCK [90+ ms QRS DURATION, TERMINAL R IN V1/V2, 40+ ms S IN I/aVL/V4/V5/V6] MODERATE ST DEPRESSION [0.05+ mV ST DEPRESSION] ABNORMAL ECG UNCONFIRMED REPORT Electronically signed by : DORIAN REARDON, 12/15/2024 03:49:59
--- NOTE | 2024-12-14 14:33 | ED_ITS ---
<Statement entered by Shelly Simon DO - 12/16/24 07:06> I was consulted by the ESSENCE, and we discussed the complexity of the problems being addressed. I approved the treatment and management plan for this patient's care in the emergency department, thus performing a substantive portion of the medical decision making. I signed out care of the patient to Dr. Villatoro at 3 PM at time of shift change Shelly Simon DO Discharge Plan Disposition Patient Disposition: Home, Self-Care Condition: Good Prescriptions Prescriptions: No Action dextroamphetamine-amphetamine [Adderall XR] 10 mg capsule,extended release 24hr 10 mg PO DAILY Referrals Follow up/Referrals: Provider,Rashaad, [Referring, Medical] - See instructions Igor Miller MD [Staff Physician, Cardiology] - See instructions Activity Restrictions/Add. Instructions Additional Instructions/Restrictions: I have referred you to cardiology. If you have persistent new or worsening signs or symptoms follow-up with your PCP or return to the ER as needed. Clinical Impressions Clinical Impression: Chest pain Print Language Print Language: Albanian Discharge ED Provider: Cy Villatoro General Adult HPI <BARBRA Link - Last Filed: 12/14/24 16:59> General Chief complaint: Chest Pain Stated complaint: Chest Pain Time Seen by Provider: 12/14/24 14:33 History of Present Illness HPI narrative: Patient presents for evaluation of chest pain. Patient states that she has had chest pain since she woke this morning. She states it is located substernally radiates down her left arm. It has been persistent since 9 AM. She does have a history of tachycardia but has no known cardiac history. She is on dextroamphetamine extended release daily. She reports nausea but no shortness of breath fever chills hemoptysis hematochezia melena nausea vomit diarrhea. She is not on control and has had a total abdominal hysterectomy. Related Data Home Medications ?Medication ?Instructions ?Recorded ?Confirmed dextroamphetamine-amphetamine ER 10 mg PO DAILY 09/11/23 10 mg 24hr capsule,extend release (Adderall XR) Allergies Allergy/AdvReac Type Severity Reaction Status Date / Time oxycodone Allergy Mild rash Verified 09/11/23 14:22 PFS <BARBRA Link - Last Filed: 12/14/24 16:59> [facility] Disclaimer: The information contained in this section may have been updated after the patient was seen, as this information can be updated by other users. Medical History (Updated 12/14/24 @ 16:59 by BARBRA Link) Palpitations ADHD History of anemia Major depressive disorder Generalized anxiety disorder Full dentures Dyspnea Chest pain Morbid obesity Abnormal EKG Sinus tachycardia delivery delivered Surgical History (Updated 09/11/23 @ 14:31 by Leslie Licea CMA) History of hysterectomy History of section H/O abdominal supracervical subtotal hysterectomy History of tubal ligation Previous section Family History Other No significant family history Social History Smoking Status: Never smoker second hand exposure: No alcohol intake: never substance use type: denies use and marijuana (has tried this before; maybe 3-4 times; nothing recent) current occupational status: unemployed Travel in the last 8 weeks?: None household members: spouse and family housing: house number of children: 3 current occupational exposures/hazards: No caffeine: Yes Have you lived/traveled outside [place] in past 30 days?: No Contact w/someone who lives/traveled outside US past 30 days?: No Exposure to someone with infectious disease in past 14 days?: No Do you have a fever (greater than 100.4 F or 38 C)?: No Have you tested positive for COVID-19?: No Exposed to someone with COVID-19 in past 14 days?: No Do you have a sore throat?: No Do you have a cough?: No Do you have any weakness?: No Do you have any diarrhea?: No Are you experiencing any unusual bleeding?: No Do you have any muscle aches/pain?: No Do you have any abdominal pain?: No Are you experiencing loss of taste or smell?: No Other Medical History Have you received the Flu Vaccine for this season: No Have you received the Pneumonia Vaccine: No <BARBRA Link - Last Filed: 12/14/24 16:59> ROS Obtained: Yes Systems reviewed as appropriate & no additional complaints except as documented Physical Exam <BARBRA Link - Last Filed: 12/14/24 16:59> General General appearance: alert and in no apparent distress Respiratory Respiratory exam: Present normal lung sounds bilaterally Cardiovascular Cardiovascular exam: Present regular rate Extremities Exam Extremities exam: Present normal inspection Neurological Exam Neurological exam: Present alert and oriented X3 Medical Decision Making <BARBRA Link - Last Filed: 12/14/24 16:59> Medical Records Medical records reviewed: Yes I reviewed the patient's medical records. Screening: Per USPSTF and CDC recommendations, given the prevalence of disease in our region, it is our hospital?s policy to screen for HIV and viral Hepatitis for all patients aged 18 and over and those with ongoing risk factors. Willi Inquiry Pt receiving controlled substance: No Vital Signs: 12/14/24 14:39 12/14/24 15:00 12/14/24 15:31 Temperature 97.9 F Temperature Source Oral Pulse Rate 96 H 74 Pulse Rate [Left] 108 H Respiratory Rate 18 15 13 Blood Pressure 125/104 H 116/69 Blood Pressure [Right Arm] 126/78 Blood Pressure Mean 110 Blood Pressure Mean [Right Arm] 94 Blood Pressure Source Blood Pressure Source [Right Arm] Automatic Cuff Blood Pressure Position Blood Pressure Position [Right Arm] Sitting 02 Sat by Pulse Oximetry 98 98 100 Oxygen Delivery Method Room Air 12/14/24 16:01 12/14/24 16:31 12/14/24 16:57 Temperature 97.8 F Temperature Source Oral Pulse Rate 81 82 75 Pulse Rate [Left] Respiratory Rate 19 15 16 Blood Pressure 110/62 112/62 112/62 Blood Pressure [Right Arm] Blood Pressure Mean Blood Pressure Mean [Right Arm] Blood Pressure Source Automatic Cuff Blood Pressure Source [Right Arm] Blood Pressure Position Sitting Blood Pressure Position [Right Arm] 02 Sat by Pulse Oximetry 99 100 Oxygen Delivery Method Room Air Lab Data Lab results reviewed: Yes I reviewed the patient's lab results. Lab Results 12/14/24 14:41: WBC 5.9, RBC 4.74, Hgb 13.7, Hct 41.5, MCV 87.6, MCH 28.9, MCHC 33.0, RDW 12.7, Plt Count 300, MPV 10.1, Neut % (Auto) 61.1, Lymph % (Auto) 27.0, Toombs % (Auto) 8.5, Eos % (Auto) 2.7, Baso % (Auto) 0.5, Neut # (Auto) 3.6, Lymph # (Auto) 1.6, Toombs # (Auto) 0.5, Eos # (Auto) 0.2, Baso # (Auto) 0.0, D- Dimer 0.51 H, Sodium 138, Potassium 4.0, Chloride 104, Carbon Dioxide 29, Anion Gap 9.0, BUN 13, Creatinine 0.70, Estimated Creat Clear 90, Estimated GFR 100, Est GFR ( Amer) 121, Glucose 92, Calcium 9.8, Magnesium 1.9, Total Bilirubin 0.5, AST 34, ALT 30, Alkaline Phosphatase 115, Troponin I < 0.01, Total Protein 7.9, Albumin 4.4, Globulin 3.5 H, Albumin/Globulin Ratio 1.3, TSH 1.74, Free T4 Index 3.1 L, Thyroxine (T4) 9.9, T3 Uptake 31 12/14/24 16:05: Troponin I < 0.01 12/14/24 14:41 12/14/24 14:41 Orders (Tests/Meds): ED MEDICATIONS Discontinued Medications Generic Name Dose Route Start Last Admin Trade Name Freq PRN Reason Stop Dose Admin Acetaminophen 1,000 mg 12/14/24 14:41 12/14/24 14:50 Acetaminophen 500mg Tab PO 12/14/24 14:42 1,000 mg ONCE ONE Administration Belladonna Alkaloids 60 ml 12/14/24 14:41 12/14/24 14:50 Belladonna Alkaloids 60 Ml Ml PO 12/14/24 14:42 60 ml ONCE ONE Administration Sodium Chloride 1,000 mls @ 999 mls/hr 12/14/24 14:41 12/14/24 14:51 Sod Chlor 0.9% 1000ml Bag IV 12/14/24 15:41 999 mls/hr .Q1H1M ONE Administration Ketorolac Tromethamine 15 mg 12/14/24 14:41 12/14/24 14:51 Ketorolac 30mg/Ml Vial IV 12/14/24 14:42 15 mg ONCE ONE Administration Ondansetron HCl 4 mg 12/14/24 14:41 12/14/24 14:51 Ondansetron 4mg/2ml Vial IV 12/14/24 14:42 4 mg ONCE ONE Administration ORDERS Category Date Time Status Chest XR 2 view (NOT portable) [XR chest 2V] Stat Exams 12/14/24 14:41 Completed CBC w/Auto Diff [Complete Blood Count Auto Diff] Stat Lab 12/14/24 14:41 Completed CMP [Comprehensive Metabolic Panel] Stat Lab 12/14/24 14:41 Completed D-Dimer Stat Lab 12/14/24 14:41 Completed Magnesium Stat Lab 12/14/24 14:41 Completed Thyroid Panel Stat Lab 12/14/24 14:41 Completed Trop I [Troponin I] Stat Lab 12/14/24 14:41 Completed Troponin I Q3H Lab 12/14/24 16:05 Completed Medical Decision Narrative: In summary patient is a 29-year-old female who presents to the emergency department for evaluation of chest pain. Patient is normotensive with a blood pressure 126/78 tachycardic sinus tachycardia on the bedside monitor with a rate of 108 breathing 18 times a minute satting at 98% on room air upon arrival, afebrile at 97.9. Physical exam reveals a well-nourished well-developed morbidly obese, with a BMI of 47, 29-year-old female who is otherwise no acute distress. Breath sounds clear in the bilateral to the bases that adventitious sounds, no reproducible chest pain on chest wall palpation, cardiovascular is S1-S2 rapid regular rate and rhythm without murmurs gallops rubs or thrills, abdomen soft nontender no rebound or guarding no rigidity. Bowel sounds normal active.. Differential diagnosis includes tachyarrhythmia versus ACS versus PE versus gastroenteritis versus GERD versus ulcer disease etc. Initial workup will be conducted with hematologic labs plain film chest x-ray twelve-lead EKG. Initial interventions include crystalloid bolus Toradol Tylenol Zofran and GI cocktail. Initial workup reviewed by me and her hematologic labs are nonactionable including an undetectable first troponin. Given this the patient was placed in observation status at 1520. Medical necessity for observational status is serial troponins. The patient was provided serial reevaluations continuous cardiac monitoring pulse oximetry while awaiting results. Second troponin is also undetectable. Given this while there remains diagnostic uncertainty as the cause of her chest pain we have since ruled out any serious or life-threatening condition today. Thus patient is appropriate for discharge with close follow-up with cardiology and her PCP for any persistent new or worsening signs or symptoms.. Total time in observation was 1 hour 30 minutes. <Shelly Simon, DO - Last Filed: 12/14/24 14:43> Vital Signs: 12/14/24 14:39 12/14/24 15:00 12/14/24 15:31 Temperature 97.9 F Temperature Source Oral Pulse Rate 96 H 74 Pulse Rate [Left] 108 H Respiratory Rate 18 15 13 Blood Pressure 125/104 H 116/69 Blood Pressure [Right Arm] 126/78 Blood Pressure Mean 110 Blood Pressure Mean [Right Arm] 94 Blood Pressure Source Blood Pressure Source [Right Arm] Automatic Cuff Blood Pressure Position Blood Pressure Position [Right Arm] Sitting 02 Sat by Pulse Oximetry 98 98 100 Oxygen Delivery Method Room Air 12/14/24 16:01 12/14/24 16:31 12/14/24 16:57 Temperature 97.8 F Temperature Source Oral Pulse Rate 81 82 75 Pulse Rate [Left] Respiratory Rate 19 15 16 Blood Pressure 110/62 112/62 112/62 Blood Pressure [Right Arm] Blood Pressure Mean Blood Pressure Mean [Right Arm] Blood Pressure Source Automatic Cuff Blood Pressure Source [Right Arm] Blood Pressure Position Sitting Blood Pressure Position [Right Arm] 02 Sat by Pulse Oximetry 99 100 Oxygen Delivery Method Room Air Lab Data Lab Results 12/14/24 14:41: WBC 5.9, RBC 4.74, Hgb 13.7, Hct 41.5, MCV 87.6, MCH 28.9, MCHC 33.0, RDW 12.7, Plt Count 300, MPV 10.1, Neut % (Auto) 61.1, Lymph % (Auto) 27.0, Toombs % (Auto) 8.5, Eos % (Auto) 2.7, Baso % (Auto) 0.5, Neut # (Auto) 3.6, Lymph # (Auto) 1.6, Toombs # (Auto) 0.5, Eos # (Auto) 0.2, Baso # (Auto) 0.0, D- Dimer 0.51 H, Sodium 138, Potassium 4.0, Chloride 104, Carbon Dioxide 29, Anion Gap 9.0, BUN 13, Creatinine 0.70, Estimated Creat Clear 90, Estimated GFR 100, Est GFR ( Amer) 121, Glucose 92, Calcium 9.8, Magnesium 1.9, Total Bilirubin 0.5, AST 34, ALT 30, Alkaline Phosphatase 115, Troponin I < 0.01, Total Protein 7.9, Albumin 4.4, Globulin 3.5 H, Albumin/Globulin Ratio 1.3, TSH 1.74, Free T4 Index 3.1 L, Thyroxine (T4) 9.9, T3 Uptake 31 12/14/24 16:05: Troponin I < 0.01 Orders (Tests/Meds): ED MEDICATIONS Discontinued Medications Generic Name Dose Route Start Last Admin Trade Name Ajq PRN Reason Stop Dose Admin Acetaminophen 1,000 mg 12/14/24 14:41 12/14/24 14:50 Acetaminophen 500mg Tab PO 12/14/24 14:42 1,000 mg ONCE ONE Administration Belladonna Alkaloids 60 ml 12/14/24 14:41 12/14/24 14:50 Belladonna Alkaloids 60 Ml Ml PO 12/14/24 14:42 60 ml ONCE ONE Administration Sodium Chloride 1,000 mls @ 999 mls/hr 12/14/24 14:41 12/14/24 14:51 Sod Chlor 0.9% 1000ml Bag IV 12/14/24 15:41 999 mls/hr .Q1H1M ONE Administration Ketorolac Tromethamine 15 mg 12/14/24 14:41 12/14/24 14:51 Ketorolac 30mg/Ml Vial IV 12/14/24 14:42 15 mg ONCE ONE Administration Ondansetron HCl 4 mg 12/14/24 14:41 12/14/24 14:51 Ondansetron 4mg/2ml Vial IV 12/14/24 14:42 4 mg ONCE ONE Administration ORDERS Category Date Time Status Chest XR 2 view (NOT portable) [XR chest 2V] Stat Exams 12/14/24 14:41 Completed CBC w/Auto Diff [Complete Blood Count Auto Diff] Stat Lab 12/14/24 14:41 Completed CMP [Comprehensive Metabolic Panel] Stat Lab 12/14/24 14:41 Completed D-Dimer Stat Lab 12/14/24 14:41 Completed Magnesium Stat Lab 12/14/24 14:41 Completed Thyroid Panel Stat Lab 12/14/24 14:41 Completed Trop I [Troponin I] Stat Lab 12/14/24 14:41 Completed Troponin I Q3H Lab 12/14/24 16:05 Completed ECG Data Tracing #1: I reviewed this ECG and interpreted as documented below: Sinus tachycardia with a ventricular 104 bpm. Incomplete right bundle branch block. No acute ST changes concerning for STEMI ECG initial impression date: 12/14/24 ECG initial impression time: 14:34 <Cy Villatoro MD - Last Filed: 12/14/24 19:34> Vital Signs: 12/14/24 14:39 12/14/24 15:00 12/14/24 15:31 Temperature 97.9 F Temperature Source Oral Pulse Rate 96 H 74 Pulse Rate [Left] 108 H Respiratory Rate 18 15 13 Blood Pressure 125/104 H 116/69 Blood Pressure [Right Arm] 126/78 Blood Pressure Mean 110 Blood Pressure Mean [Right Arm] 94 Blood Pressure Source Blood Pressure Source [Right Arm] Automatic Cuff Blood Pressure Position Blood Pressure Position [Right Arm] Sitting 02 Sat by Pulse Oximetry 98 98 100 Oxygen Delivery Method Room Air 12/14/24 16:01 12/14/24 16:31 12/14/24 16:57 Temperature 97.8 F Temperature Source Oral Pulse Rate 81 82 75 Pulse Rate [Left] Respiratory Rate 19 15 16 Blood Pressure 110/62 112/62 112/62 Blood Pressure [Right Arm] Blood Pressure Mean Blood Pressure Mean [Right Arm] Blood Pressure Source Automatic Cuff Blood Pressure Source [Right Arm] Blood Pressure Position Sitting Blood Pressure Position [Right Arm] 02 Sat by Pulse Oximetry 99 100 Oxygen Delivery Method Room Air Lab Data Lab Results 12/14/24 14:41: WBC 5.9, RBC 4.74, Hgb 13.7, Hct 41.5, MCV 87.6, MCH 28.9, MCHC 33.0, RDW 12.7, Plt Count 300, MPV 10.1, Neut % (Auto) 61.1, Lymph % (Auto) 27.0, Toombs % (Auto) 8.5, Eos % (Auto) 2.7, Baso % (Auto) 0.5, Neut # (Auto) 3.6, Lymph # (Auto) 1.6, Toombs # (Auto) 0.5, Eos # (Auto) 0.2, Baso # (Auto) 0.0, D- Dimer 0.51 H, Sodium 138, Potassium 4.0, Chloride 104, Carbon Dioxide 29, Anion Gap 9.0, BUN 13, Creatinine 0.70, Estimated Creat Clear 90, Estimated GFR 100, Est GFR ( Amer) 121, Glucose 92, Calcium 9.8, Magnesium 1.9, Total Bilirubin 0.5, AST 34, ALT 30, Alkaline Phosphatase 115, Troponin I < 0.01, Total Protein 7.9, Albumin 4.4, Globulin 3.5 H, Albumin/Globulin Ratio 1.3, TSH 1.74, Free T4 Index 3.1 L, Thyroxine (T4) 9.9, T3 Uptake 31 12/14/24 16:05: Troponin I < 0.01 Orders (Tests/Meds): ED MEDICATIONS Discontinued Medications Generic Name Dose Route Start Last Admin Trade Name Hunter PRN Reason Stop Dose Admin Acetaminophen 1,000 mg 12/14/24 14:41 12/14/24 14:50 Acetaminophen 500mg Tab PO 12/14/24 14:42 1,000 mg ONCE ONE Administration Belladonna Alkaloids 60 ml 12/14/24 14:41 12/14/24 14:50 Belladonna Alkaloids 60 Ml Ml PO 12/14/24 14:42 60 ml ONCE ONE Administration Sodium Chloride 1,000 mls @ 999 mls/hr 12/14/24 14:41 12/14/24 14:51 Sod Chlor 0.9% 1000ml Bag IV 12/14/24 15:41 999 mls/hr .Q1H1M ONE Administration Ketorolac Tromethamine 15 mg 12/14/24 14:41 12/14/24 14:51 Ketorolac 30mg/Ml Vial IV 12/14/24 14:42 15 mg ONCE ONE Administration Ondansetron HCl 4 mg 12/14/24 14:41 12/14/24 14:51 Ondansetron 4mg/2ml Vial IV 12/14/24 14:42 4 mg ONCE ONE Administration ORDERS Category Date Time Status Chest XR 2 view (NOT portable) [XR chest 2V] Stat Exams 12/14/24 14:41 Completed CBC w/Auto Diff [Complete Blood Count Auto Diff] Stat Lab 12/14/24 14:41 Completed CMP [Comprehensive Metabolic Panel] Stat Lab 12/14/24 14:41 Completed D-Dimer Stat Lab 12/14/24 14:41 Completed Magnesium Stat Lab 12/14/24 14:41 Completed Thyroid Panel Stat Lab 12/14/24 14:41 Completed Trop I [Troponin I] Stat Lab 12/14/24 14:41 Completed Troponin I Q3H Lab 12/14/24 16:05 Completed Medical Decision Narrative: In summary patient is a 29-year-old female who presents to the emergency department for evaluation of chest pain. Patient is normotensive with a blood pressure 126/78 tachycardic sinus tachycardia on the bedside monitor with a rate of 108 breathing 18 times a minute satting at 98% on room air upon arrival, afebrile at 97.9. Physical exam reveals a well-nourished well-developed morbidly obese, with a BMI of 47, 29-year-old female who is otherwise no acute distress. Breath sounds clear in the bilateral to the bases that adventitious sounds, no reproducible chest pain on chest wall palpation, cardiovascular is S1-S2 rapid regular rate and rhythm without murmurs gallops rubs or thrills, abdomen soft nontender no rebound or guarding no rigidity. Bowel sounds normal active.. Differential diagnosis includes tachyarrhythmia versus ACS versus PE versus gastroenteritis versus GERD versus ulcer disease etc. Initial workup will be conducted with hematologic labs plain film chest x-ray twelve-lead EKG. Initial interventions include crystalloid bolus Toradol Tylenol Zofran and GI cocktail. Initial workup reviewed by me and her hematologic labs are nonactionable including an undetectable first troponin. Given this the patient was placed in observation status at 1520. Medical necessity for observational status is serial troponins. The patient was provided serial reevaluations continuous cardiac monitoring pulse oximetry while awaiting results. Second troponin is also undetectable. Given this while there remains diagnostic uncertainty as the cause of her chest pain we have since ruled out any serious or life-threatening condition today. Thus patient is appropriate for discharge with close follow-up with cardiology and her PCP for any persistent new or worsening signs or symptoms.. Total time in observation was 1 hour 30 minutes. I was consulted by the ESSENCE, and we discussed the complexity of the problems being addressed. I approved the treatment and management plan for this patient's care in the emergency department, thus performing a substantive portion of the medical decision making. Cy Villatoro MD Critical Care <BARBRA Link - Last Filed: 12/14/24 16:59> Critical Care Time Critical Care Time: No
--- OUTSIDE RECORDS SUMMARY | 2024-12-14 14:37 | XMS_ITS | Clinical Summary ---
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 for follow-up on ADHD. She has received excellent benefit from Vyvanse 30 mg once daily until running out of her prescription approximately 1 month ago. Since that time she has had recurrence of mind racing, increased anxiety and episodes of depressed mood manifested as anhedonia. Anxiety predominantly manifests as agitation and feelings of overstimulation. Her sleep has been affected without the medication as she cannot shut her mind off . -Refill Vyvanse 30 mg once daily -As per report reviewed and satisfactory -Controlled substance agreement in place -Follow-up in 3 months Assessment & Plan (11/16/2022 12:46 PM EDT): presents today for follow-up on ADHD. He was initiated on Vyvanse 2 months ago with complaints her mind never stops, screening indicating she did suffer from some attention deficit issues. Initially taking Vyvanse 10 mg once daily, at 4-week follow-up she noticed no improvement in symptoms so she is increased to 20 mg which she also stated did not provide that much benefit so she is increased to 30 mg. Today she reports racing thoughts and ability to shut her mind off at night have greatly improved. He is now working at [facility] [employer] 5 nights a week which she feels has also improved her mood. She has decreased portion sizes and continues to walk for exercise and as a result lost 7 pounds. She feels like she is in very good place mentally. -Continue Vyvanse 30 mg once daily. Willi reviewed and satisfactory, sandhyaed substance agreement in place. Follow-up in 3 months Assessment & Plan (10/23/2022 10:19 AM EDT): Improvement in ADHD since noted with increase in Vyvanse from 10 to 20 mg 4 weeks ago. He is receiving significant benefit particularly in regards to sleeping patterns. He is sleepy scrolling on her phone for several hours before being able to fall asleep, now going directly to sleep without her mind racing. She notes some days her focus is greatly improved while other days she does not even feel like she is taking medication. -Willi reviewed and satisfactory -We will increase Vyvanse from 20 mg to 30 mg daily -Reassess efficacy of dosage increase in 4 weeks Assessment & Plan (10/01/2022 10:52 AM EDT): Has been under the care of a therapist once weekly who felt she may benefit from initiation of Vyvanse prompting her to establish care with with me 4 weeks ago. She describes her brain as being loud . Reports she is unable to sit still, when she does she has panic attacks. Panic attacks manifest as feelings of smothering and heart racing. Reports her mind never stops, she describes in her words as a 7 trains of thought going on at all times and then they all collide. Her ADHD self-report scale indicated she likely has ADHD. Feel she is both hyperactive and inattentive at this point. She was initiated on Vyvanse 10 mg once daily. She reports feeling that the medication has decreased her appetite however her mind still races. No issues with SI or HI. -Will increase Vyvanse to 20 mg once daily and monitor for panxgp-abbvyv-il in 4 weeks Assessment & Plan (08/27/2022 10:57 AM EDT): She is evaluated by therapist once weekly who feels she may benefit from initiation of Vyvanse, prompting her to establish care with PCP. Patient describes her brain as being loud . She reports she is unable to sit still, when she does she has panic attacks. Her panic attacks manifest as feelings of smothering and heart racing. Reports her mind never stops, she describes in her words as a 7 trains of thought going on at all times and then they all collide. Performed the adult ADHD self- report scale today which indicated she likely has ADHD. She feels she is both hyperactive and inattentive at this point. -We will initiate Vyvanse 10 mg once daily -Controlled substance abuse agreement reviewed and signed today -Discussed possible adverse reactions including worsening anxiety, feelings of palpitations and jitteriness. As if the symptoms develop to stop medication immediately and contact our office -Follow-up in 4 weeks Encounter to establish care 08/27/2022 Encounters Date Type Department Care Team Description 12/09/2024 Telephone [facility] [address] [place] [address] [place] [phone] Roberto Castellanos APRN 12/02/2024 Telephone [facility] [address] [place] [address] [place] [phone] Aleah Torres, FIDEL ORDERS 11/27/2024 2:30 PM EDT Clinical Support [facility] [address] [place] [address] [place] [phone] Encounter for pre-employment health screening examination 11/27/2024 Refill [facility] [address] [place] [address] [place] [address] Aleah Torres, PRODUCT MARKETING MANAGER Attention deficit hyperactivity disorder (ADHD), combined type 11/27/2024 Travel 10/27/2024 9:00 AM EDT Office Visit [facility] [place] [address] Roberto Castellanos, PRODUCT MARKETING MANAGER Attention deficit hyperactivity disorder (ADHD), combined type (Primary Dx); Primary insomnia 10/26/2024 10:45 AM EDT Office Visit [facility] [address] [place] [address] [place] [address] Aleah Torres, PRODUCT MARKETING MANAGER Morbid (severe) obesity due to excess calories (Primary Dx); Anxiety and depression; Attention deficit hyperactivity disorder (ADHD), combined type 10/26/2024 Travel 10/20/2024 Refill [facility] [address] [place], [place] [address] Aleah Torres APRN Attention deficit hyperactivity disorder (ADHD), combined type 09/14/2024 Refill [facility] [address] [place], [place] [address] Aleah Torres APRN Attention deficit hyperactivity disorder (ADHD), combined type from Last 3 Months Immunizations Immunization Administration Dates Next Due DTaP, Unspecified 02/09/1999 Hep B, Adolescent or Pediatric 02/09/1999 Hib (PRP-T) 02/09/1999 MMR 02/09/1999 OPV 02/09/1999 PPD Test 08/05/2023 Varicella 04/15/2001 Family History Medical History Relation Name Comments No Known Problems Father Anxiety disorder Mother Elisa Tellez Relation Name Status Comments Father Alive Mother Elisa Tellez Alive Social History Tobacco Use Types Packs/Day Years Used Date Smoking Tobacco: Never Smokeless Tobacco: Never Tobacco Cessation:Counseling Given: Not Answered Alcohol Use Standard Drinks/Week Comments No 0 [...] Orientation Straight 10/22/2022 11 :39 AM EDT Last Filed Vital Signs Vital Sign Reading [...] Mass Index 48.94 10/26/2024 10:33 AM EDT Plan of Treatment Upcoming Encounters Date Type Department Care Team (Late st Contact Info) Description 12/23/2024 4:00 PM EDT Office Visit [facility] [address] [place] [address] [address] [place], [place] [phone] Aleah Torres, PRODUCT MARKETING MANAGER [address] [place] [address] 01/26/2025 9:00 AM EDT Office Visit [facility] [address] [place] [address] [place] [phone] Roberto Castellanos, PRODUCT MARKETING MANAGER [address] [place], [place] [id number] 03/02/2025 10:30 AM EDT Office Visit [facility] [address] [place] [address] Lacey Gupta, PRODUCT MARKETING MANAGER [address] [place] [address] Health Maintenance Due Date Last Done Comments Annual Gynecologic Pelvic an d Breast Exam 1996 INFLUENZA VACCINE 02/17/2025 COVID-19 Vaccine ( - 2023-2 5 season) 2025 Postponed from 01/18 (Patient Refused) TDAP/TD VACCINES (1 - Tdap) 04/03/2025 Postponed from 11/20/2015 (Patient Refused) ANNUAL PHYSICAL 07/08/2025 07/08/2024, 10/01/2022 HEPATITIS C SCREENING Completed 11/27/2024 , 10/01/2022 Pneumococcal Vaccine 0-49 Aged Out No longer eligible based on patient's age to complete this topic Procedures Procedure Name Priority Date/Time Associated Diagnosis Comments CONV WRITTEN AUTHORIZATION Routine 11/27/2024 12:00 AM EDT CONV HEPATITIS B CORE AB W/REFLEX Routine 11/27/2024 12:00 AM EDT HEPATITIS C ANTIBODY Routine 11/27/2024 12:00 AM EDT QUANTIFERON TB GOLD PLUS (KIT TEST) Routine 11/27/2024 12:00 AM EDT Encounter for pre-employment health screening examination VARICELLA ZOSTER ANTIBODY, IGG Routine 11/27/2024 12:00 AM EDT Encounter for pre-employment health screening examination MEASLES/MUMPS/RUBELLA IMMUNITY ([facility]) Routine 11/27/2024 12:00 AM EDT Encounter for pre-employment health screening examination from Last 3 Months Results * Written Authorization (11/27/2024 12:00 AM EDT) Written Authorization Comment [facility] Comment: Written Authorization Received. Authorization received from Vibha Moses for Link Request on 12-02-2024 Logged by Milo Phoenix 11/27/2024 11/27/2024 Comment:Blood Release to maru Ribeiro [facility] ([facility]) - 12/03/2024 6:06 AM EDT Performed at: 01 - [address] [id number] Wood Processing Worker: Maximus Pedersen PhD, Phone: [phone] us Aleah Torres APRN LAB BLOOD ORDERABLES Final Result [facility] [address] [place] [address], [facility] [address] [place] [address], * Measles / Mumps / Rubella Immunity (11/27/2024 12:00 AM EDT) [facility] Rubella Antibodies, IgG 2.01 Immune >0.99 index [...] vaccination. Blood 11/27/2024 11/27/2024 Comment:Blood Release to [facility] (AMBULATORY) - 12/01/2024 7:07 PM EDT Performed at: [address] [place] [id number] Wood Processing Worker: Maximus Pedersen PhD, Phone: [phone] Aleah Torres APRN LAB BLOOD ORDERABLES Final Result [facility] (AMBULATORY) [address] [place] [address], [facility] [address] [place] [address], * Hepatitis B Core Ab W/Reflex (11/27/2024 12:00 AM EDT) [facility] Hep B Core Total Ab Negative Negative [facility] 11/27/2024 11/27/2024 Comment:Blood Release to [facility] (AMBULATORY) - 12/03/2024 6:06 AM EDT Performed at: [address] [place] [id number] Wood Processing Worker: Maximus Pedersen PhD, Phone: [phone] us Aleahisela Torres PRODUCT MARKETING MANAGER LAB BLOOD ORDERABLES Final Result [facility] [address] [place] [address], [facility] [address] [place] [address], [place] [phone] * QuantiFERON TB Gold (11/27/2024 12:00 AM EDT) [facility] QuantiFERON Incubation Incubation performed. [facility] QuantiFERON Criteria Comment [facility] Comment: QuantiFERON-TB Gold Plus is a [...] test. QUANTIFERON TB1 AG VALUE 0.13 IU/mL [facility] QUANTIFERON TB2 AG VALUE 0.12 IU/mL [...] methodology Blood 11/27/2024 11/27/2024 Comment:Blood Release to maru Ribeiro [facility] (AMBULATORY) - 12/01/2024 7:07 PM EDT Performed at: - [facility] [address] [place] [id number] Wood Processing Worker: Maximus Pedersen PhD, Phone: [phone] Aleahisela Torres APRN LAB BLOOD ORDERABLES Final Result [facility] (AMBULATORY) [address] [place] [address], [place] [phone] [facility] [address] [place] [address], [place] [phone] * Hepatitis C Antibody (11/27/2024 12:00 AM EDT) Pathologist [facility] Hep C Virus Ab Non Reactive Non Reactive [facility] Comment: HCV antibody alone does not differentiate between previously resolved infection and active infection. Equivocal and Reactive HCV antibody results should be followed up with an HCV RNA test to support the diagnosis of active HCV infection. 11/27/2024 11/27/2024 Comment:Blood Release to [facility] (AMBULATORY) - 12/01/2024 7:07 PM EDT Performed at: [address] [id number] Wood Processing Worker: Maximus Pedersen PhD, Phone: [phone] us Aleah Torres APRN LAB BLOOD ORDERABLES Final Result [facility] ([facility]) [address] [place] [address], [place] [phone] [facility] [address] [place] [address], [place] [phone] * Varicella zoster antibody, IgG (11/27/2024 12:00 AM EDT) [facility] Varicella IgG Reactive Non Reactive [facility] Comment: Please note reference interval change A Reactive result is considered evidence of immunity to VZV. Reactive indicates that VZV IgG was detected consistent with previous infection and/or vaccination. A Non Reactive result indicates that VZV IgG was not detected suggesting that immunity has not been acquired. Blood 11/27/2024 11/27/2024 Comment:Blood Release to [facility] (AMBULATORY) - 12/01/2024 7:07 PM EDT Performed at: - [address] [id number] Wood Processing Worker: Maximus Pedersen PhD, Phone: [phone] us Aleah Torres APRN LAB BLOOD ORDERABLES Final Result [facility] (AMBULATORY) [address] [place] [address], [place] [phone] [facility] [address] [place] [address], [place] [phone] from Last 3 Months Insurance [facility] Care Teams Campaign Advisor Relationship Specialty Start Date End Date Aleah Torres APRN [address] [place] [phone] PCP - General Family Medicine 08/27/22
--- OUTSIDE RECORDS SUMMARY | 2024-12-14 14:37 | XMS_ITS | Clinical Summary ---
Author Organization Healthcare Address [address] [place] [address] Care Team Providers Care Social Insurance Specialist Name Role Phone BrianAleah tran John PARRA Primary Care Provider [phone] Allergies Active Allergy Reactions Criticality Noted Date Comments Oxycodone Hives Medium 12/29/2023 Medications moxifloxacin (Vigamox) 0.5 % ophthalmic solution Administer 1 drop into the right eye every 1 (one) hour. 3 mL 1 4 Active cyclopentolate (Cyclogyl) 1 % ophthalmic solution Administer 1 drop into the right eye 2 (two) times a day. 5 mL 4 Active erythromycin (Romycin) 5 MG/GM ophthalmic ointment Apply 1 Application to right eye every night. ~1 cm instilled into affected eyenightly x 7 days (quantity = 3.5 g tube) 3.5 g 4 Active Active Problems No known active problems Family History Medical History Relation Name Comments Diabetes Paternal Grandfather Santos Diego Cataracts Paternal Grandmother Aleenamulu Michaudon Glaucoma Paternal Grandmother Aleena Diego Relation Name Status Comments Paternal Grandfather Santos Michaudon Paternal Grandmother Aleena Diego Social History Tobacco Use Types Packs/Day Years Used Date Smoking Tobacco: Never Tobacco Cessation:Counseling Given: Not Answered Alcohol Use Standard Drinks/Week Comments Yes 0 (1 standard drink = 0.6 oz pur e alcohol) CAGE ASSESSMENT Answer Date Recorded Cage unable to access Not on file 12/29/2023 Maximum number of drinks you had on a given occasion in the last month? 0 drinks 12/29/2023 How many alcoholic Beverages do you typically drink in a week? 0 - 7 per week 12/29/2023 Have you ever felt you should CUT down on your d rinking? 0 12/29/2023 Have you been ANNOYED by peo ple criticizing your drinking? 0 12/29/2023 Have you felt GUILTY about your drinking? 0 12/29/2023 Have you had a drink first t marilee in the morning (EYE-ADULT PAROLE OFFICER) to steady your nerves or to get rid of a hangover? 0 12/29/2023 CAGE Questionnaire Score 0 024 Comments Unknown Sex and Gender Information Value Date Recorded Sex Assigned at Female 12/30/2023 2:04 PM EDT Legal Sex Female 8:11 PM EDT Gender Identity Female 12/30/2023 2:04 PM EDT Sexual Orientation Straight 12/30/2023 2: 04 PM EDT Last Filed Vital Signs Vital Sign Reading Time Taken Comments Blood Pressure 135/84 12/29/2023 1:36 PM EDT Pulse 84 12/29/2023 1:36 PM EDT Temperature 36.7 C (98.1 F) 12/29/2023 1:36 PM EDT Respiratory Rate 16 12/29/2023 1:36 PM EDT Oxygen Saturation 97% 12/29/2023 1:36 PM EDT Inhaled Oxygen Concentration - - Weight 89.3 kg (196 lb 13.9 oz) 04/12/2015 9:18 AM EST Height 157.5 cm (5' 2 ) 11/28/2011 8:55 AM EDT Body Mass Index - - Plan of Treatment Health Maintenance Due Date Last Done Comments [facility]-Depression Screening 1996 [facility]-Infant/Child/Adol SDOH Screenings 1996 [facility]-Hepatitis B Vaccines (2 of 3 - 3-dose series) 03/09/1999 02/09/1999 [facility]-IPV Vaccines (2 of 3 - 4-dose series) 03/09/1999 02/09/1999 [facility]-Varicella Vaccines (2 of 2 - 2-dose childhood series) 07/08/2001 04/15/2001 HPV Vaccines (1 - 3-dose series) 11/20/2011 [facility]- SDOH Screenings 2014 [facility]-Adult SDOH Screenings 2014 [facility]-DTaP,Tdap,and Td Vaccines (2 - Tdap) 11/20/2015 02/09/1999 [facility]-Pap Smear 2017 NNA-LQOFI-90 Vaccine (1 - 2023- season) 2024 [facility]-Influenza Vaccine (#1) 2025 [facility]-Zoster Vaccines (1 of 2) 2046 04/15/2001 [facility]-HIB Vaccines Completed 02/09/1999 [facility]-HIV Screening Completed 05/19/2015 [facility]-Hepatitis C Screening Completed 2022, 05/19/2015 [facility]-Hepatitis A Vaccines Aged Out No longer eligible based on patient's age to complete this topic [facility]-Pneumococcal Vaccine: Pediatrics (0 to 5 Years) and At-Risk Patients (6 to 49 Years) Aged Out No longer eligible b ased on patient's age to complete this topic [facility]-Rotavirus Vaccines Aged Out No lo nger eligible based on patient's age to complete this topic Procedures Procedure Name Priority Date/Time Associated Diagnosis Comments ACUTE HEPATITIS PANEL STAT 05/19/2015 10:27 PM EST HIV 1/2 ANTIBODY/ANTIGEN SCREEN WITH REFLEX TO HIV I/II DIFFERENTIATION STAT 05/19/2015 10:27 PM EST from Last 3 Months or Most Recently Relevant to Health Maintenance Results * HIV 1 & 2 Antibody/Antigen Screen (05/19/2015 10:27 PM EST) HIV 1 Result NONREACTIVE Screening for HIV 1 and 2 antibodies is NONREACTIVE. No confirmatory testing is required. SUNQUEST 05/19/2015 10:2 7 PM EST 05/19/2015 10:40 PM EST us [facility] Provider LAB BLOOD ORDERABLES Becky preciado Result SUNQUEST * Acute Hepatitis Panel (05/19/2015 10:27 PM EST) Hepatitis B Surf Antigen NEGATIVE Reference Value: Negative SUNQUEST Hepatitis C Antibody NEGATIVE Reference Range: Negative [facility]QUEST Hepatitis A Antibody IgM NEGATIVE Reference Value: Negative SUNQUEST External Hepatitis B Core IgM (HBCM) NEGATIVE Reference Value: Negative [facility]QUEST 05/19/2015 10:2 7 PM EST 05/19/2015 10:40 PM EST us Historical Provider LAB BLOOD ORDERABLES Becky l Result SUNQUEST from Last 3 Months or Most Recently Relevant to Health Maintenance Care Teams Social Insurance Specialist Relationship Specialty Start Date End Date Aleah Torres, LINER REPLACER PCP - General 12/29/23
--- OUTSIDE RECORDS SUMMARY | 2024-12-14 14:37 | XMS_ITS | Encounter Summary ---
Author Organization Healthcare Address [address] [place] [address] Care Team Providers Care Weight Loss Counselor Name Role Phone BrianAleah tran John PARRA Primary Care Provider [phone] Encounter Details Date Type Department Care Team (Late st Contact Info) Description 12/29/2023 Ophth Exam [facility] [address] [place] [phone] Nahid Benoit MD [address] [id number] Social History Tobacco Use Types Packs/Day Years Used Date Smoking Tobacco: Every Day Alcohol Use Standard Drinks/Week Comments Yes 0 [...] drink first t marilee in the morning (EYE-CHEF KITCHEN MANAGER) to steady your nerves or to get rid of a hangover? 0 12/29/2023 CAGE Questionnaire Score 0 024 Comments Unknown Sex and Gender Information Value Date Recorded Sex Assigned at Female 12/30/2023 2:04 PM EDT Legal Sex Female 8:11 PM EDT Gender Identity Female 12/30/2023 2:04 PM EDT Sexual Orientation Straight 12/30/2023 2: 04 PM EDT documented as of this encounter Functional Status * Calculated C-SSRS Risk Score (Lifetime/Recent) Answer Date of Assessment Author No Risk Indicated 12/29/2023 7:59 AM EDT Nitesh Mcclure RN * Question Answer Date of Assessment Author 1. Wish to be (Past 1 Month) No 024 7:59 AM EDT Nitesh Mcclure RN 2. Non-Specific Active Suici marlo Thoughts (Past 1 Month) No 12/29/2023 7:59 AM EDT Nitesh Mcclure RN 6. Suicidal Behavior (Lifetime) No 4 7:59 AM EDT Nitesh Mcclure RN documented as of this encounter Plan of Treatment Not on file documented as of this encounter Visit Diagnoses Not on filedocumented in this encounter Care Teams Weight Loss Counselor Relationship Specialty Start Date End Date Aleah Torres APRN PCP - General 12/29/23 documented as of this encounter
--- OUTSIDE RECORDS SUMMARY | 2024-12-14 14:38 | XMS_ITS | Encounter Summary ---
Author Organization [facility] Address [address] [place] [address] Care Team Providers Care Information Broker Name Role Phone Aleah Torres HOME HEALTH SCHEDULER Primary Care Provider [phone] Reason for Visit * Reason Onset Date Comments ORDERS 12/02/2024 Encounter Details Date Type Department Care Team (Late st Contact Info) Description 12/02/2024 Telephone [facility] [address] [place] [phone] Aleah Torres, HOME HEALTH SCHEDULER [address] [place], [place] [id number] ORDERS Social History Tobacco Use Types Packs/Day Years [...] AM EDT documented as of this encounter Miscellaneous Notes * Telephone Encounter - Vibha Moses MA - 12/02/2024 10:55 AM EDT Called and advised her that Hep B was added to that order * Telephone Encounter - Stephen Tristan RegSched Rep - 12/02/2024 10:47 AM EDT Caller: Cheri Suárez Relationship: Self Best call back number: [phone] What orders are you requesting (i.e. lab or imaging): HEP B LABS In what timeframe would the patient need to come in: CATA Where will you receive your lab/imaging services: OFFICE Additional notes: PT HAS A BLOOD DRAW DONE ON 11-27-24. THE ORDERS STATED HEP C TESTING BUT WAS SUPPOSED TO BE FOR HEP B. PT IS WANTING TO KNOW IF THE HEP B TEST CAN STILL BE RUN? documented in this encounter Plan of Treatment Upcoming Encounters Date Type Department Care Team (Late st Contact Info) Description 12/23/2024 4:00 PM EDT Office Visit [facility] [address] [place] [address] [place] [phone] Aleah Torres, HOME HEALTH SCHEDULER [address] [place] [address] 01/26/2025 9:00 AM EDT Office Visit [facility] [address] [place] [address] [place] [phone] Roberto Castellanos HOME HEALTH SCHEDULER [address] [place] [address] 03/02/2025 10:30 AM EDT Office Visit [facility] [address] [facility] [place] [phone] Lacey Gupta APRN [address] [place] [address] documented as of this encounter Visit Diagnoses Not on filedocumented in this encounter Care Teams Information Broker Relationship Specialty Start Date End Date Aleah Torres APRN [address] [place] [address] PCP - General Family Medicine 08/27/22 documented as of this encounter
--- OUTSIDE RECORDS SUMMARY | 2024-12-14 14:38 | XMS_ITS | Encounter Summary ---
Author Organization [facility] Address [address] [place] [address] Care Team Providers Care Marine Engine Machinist Name Role Phone Brian, Aleahdang Lopez APRN Primary Care Provider +1- [phone] Encounter Details Date Type Department Care Team (Late st Contact Info) Description 12/09/2024 Telephone [facility] [address] [place] [phone] Roberto Castellanos APRN [address] [place] [address] Social History Tobacco Use Types Packs/Day Years [...] encounter Miscellaneous Notes * Telephone Encounter - Marj Cortez RegSched Rep - 12/09/2024 10:44 AM EDT CALLED PT TO RESCHEDULE APPT ON 01/26 ROBERTO WILL BE OUT OF THE OFFICE. documented in this encounter Plan of Treatment Upcoming Encounters Date Type Department Care Team (Late st Contact Info) Description 12/23/2024 4:00 PM EDT Office Visit [facility] [address] [place] [address] [place] [address] Aleah Torres, INSURANCE CLAIMS EXAMINER [address] [place], [place] [id number] 01/26/2025 9:00 AM EDT Office Visit [facility] [address] [place] [address] [place] [address] Roberto Castellanos INSURANCE CLAIMS EXAMINER [address] [place] [address] 03/02/2025 10:30 AM EDT Office Visit [facility] [address] [place] [address] Lacey Gupta APRN [address] [place] [address] documented as of this encounter Visit Diagnoses Not on filedocumented in this encounter Care Teams Marine Engine Machinist Relationship Specialty Start Date End Date Aleah Torres, INSURANCE CLAIMS EXAMINER [address] [place] [address] PCP - General Family Medicine 08/27/22 documented as of this encounter
--- OUTSIDE RECORDS SUMMARY | 2024-12-14 14:38 | XMS_ITS | Encounter Summary ---
Author Organization [facility] Address [address] [place] [id number] Care Team Providers Care Weld Inspector Name Role Phone Aleah Torres APRN Primary Care Provider +1- [phone] Encounter Details Date Type Department Care Team (Latest Contact Info) Description 11/27/2024 Travel Social History Tobacco Use Types Packs/Day Years [...] AM EDT documented as of this encounter Plan of Treatment Upcoming Encounters Date Type Department Care Team (Late st Contact Info) Description 12/23/2024 4:00 PM EDT Office Visit [facility] [address] [place] [address] [place] [address] Aleah Torres APRN 6 [place], [place] [id number] 01/26/2025 9:00 AM EDT Office Visit [facility] [address] [place] [address] [place] [address] Roberto Castellanos APRN 6 [place], [place] [id number] 03/02/2025 10:30 AM EDT Office Visit [facility] [address] [facility] [place] [address] Lacey Gupta MARINE CARGO INSPECTOR [address] [place], [place] [id number] documented as of this encounter Visit Diagnoses Not on filedocumented in this encounter Care Teams Weld Inspector Relationship Specialty Start Date End Date Aleah Torres, MARINE CARGO INSPECTOR [address] [place] [address] PCP - General Family Medicine 08/27/22 documented as of this encounter
--- OUTSIDE RECORDS SUMMARY | 2024-12-14 14:38 | XMS_ITS | Encounter Summary ---
Author Organization [facility] Address [address] [place] [address] Care Team Providers Care Relations Manager Name Role Phone Aleah Torres ESCROW OFFICER Primary Care Provider +1- [phone] Reason for Visit * Reason Onset Date Comments Med Refill 10/20/2024 Encounter Details Date Type Department Care Team (Late st Contact Info) Description 10/20/[address] [facility] [address] [place] [phone] Aleah Torres, ESCROW OFFICER [address] [place] [address] Attention deficit hyperactivity disorder (ADHD), combined type [...] Date Recorded Patient Health Questionnaire-2 Score 0 06/15/2024 Comments No Sex and Gender Information Value Date Recorded Sex Assigned at Female 10/22/2022 11:39 AM EDT Legal Sex Female 11:21 AM EDT Gender Identity Female 10/22/2022 11:39 AM EDT Sexual Orientation Straight 10/22/2022 11 :39 AM EDT documented as of this encounter Miscellaneous Notes * Telephone Encounter - Vibha Moses MA - 10/20/2024 2:28 PM EDT RX denied tried to call patient, no answer or option to leave voicemail. Patient needs to make an appointment to see Roberto * Telephone Encounter - Juana Rossi RegSched Rep - 10/20/2024 12:55 PM EDT Caller: Cheri Suárez Relationship: Self Best call back number: [phone] Requested Prescriptions: Requested Prescriptions Pending Prescriptions Disp Refills Adderall XR 20 MG 24 hr capsule 30 capsule 0 Sig: Take 1 capsule by mouth Every Morning amphetamine-dextroamphetamine (Adderall) 10 MG tablet 30 tablet 0 Sig: Take one tablet each afternoon Pharmacy where request should be sent: [address] [phone] [place] [phone] FX Last office visit with prescribing clinician: 07/08/2024 Last telemedicine visit with prescribing clinician: Visit date not found Next office visit with prescribing clinician: 10/26/2024 Additional details provided by patient: PATIENT IS COMPLETELY OUT Does the patient have less than a 3 day supply: [x] Yes [] No Would you like a call back once the refill request has been completed: [] Yes [x] No If the office needs to give you a call back, can they leave a voicemail: [] Yes [x] No Adrian Torres 10/20/24 12:56 EDT documented in this encounter Plan of Treatment Upcoming Encounters Date Type Department Care Team (Late st Contact Info) Description 12/23/2024 4:00 PM EDT Office Visit [facility] [address] [place] [phone] Aleah Torres, FIDEL [address] [place] [address] 01/26/2025 9:00 AM EDT Office Visit [facility] [address] [place] [address] [place] [address] Roberto Castellanos APRN [address] [place], [place] [id number] 03/02/2025 10:30 AM EDT Office Visit [facility] [address] [place] [address] Lacey Gupta ESCROW OFFICER [address] [place] [address] documented as of this encounter Visit Diagnoses Diagnosis Attention deficit hyperactivity disorder (ADHD), combined type documented in this encounter Care Teams Relations Manager Relationship Specialty Start Date End Date Aleah Torres, ESCROW OFFICER [address] [place] [address] PCP - General Family Medicine 08/27/22 documented as of this encounter
--- OUTSIDE RECORDS SUMMARY | 2024-12-14 14:38 | XMS_ITS | Encounter Summary ---
Author Organization [facility] Address [address] [place] [address] Care Team Providers Care Beater Boss Name Role Phone Aleah Torres COSTUME SEAMSTRESS Primary Care Provider +1- [phone] Reason for Visit * Reason Onset Date Comments Med Refill 11/27/2024 Encounter Details Date Type Department Care Team (Late st Contact Info) Description 11/27/2024 Refill [facility] [address] [place] [phone] Aleah Torres, COSTUME SEAMSTRESS [address] [place] [address] Attention deficit hyperactivity disorder (ADHD), combined type [...] Office Visit [facility] [address] [place] [address] [place] [address] Aleah Torres, FIDEL [address] [place], [place] [id number] 01/26/2025 9:00 AM EDT Office Visit [facility] [address] [place] [address] [place] [address] Roberto Castellanos COSTUME SEAMSTRESS 6 [place], [place] [id number] 03/02/2025 10:30 AM EDT Office Visit [facility] [address] [facility] [place] [address] Lacey Gupta APRN 24 [place], [place] [phone] documented as of this encounter Visit Diagnoses Diagnosis Attention deficit hyperactivity disorder (ADHD), combined type documented in this encounter Care Teams Beater Boss Relationship Specialty Start Date End Date Aleah Torres, FIDEL [address] [place] [address] PCP - General Family Medicine 08/27/22 documented as of this encounter
--- OUTSIDE RECORDS SUMMARY | 2024-12-14 14:38 | XMS_ITS | Encounter Summary ---
Author Organization [facility] Address [address] [place] [address] Care Team Providers Care Wood Stock Blank Handler Name Role Phone Aleah Torres APRN Primary Care Provider +1- [phone] Encounter Details Date Type Department Care Team (Latest Contact Info) Description 10/26/2024 Travel Social History Tobacco Use Types Packs/Day [...] AM EDT documented as of this encounter Functional Status documented as of this encounter Plan of Treatment Upcoming Encounters Date Type Department Care Team (Late st Contact Info) Description 12/23/2024 4:00 PM EDT Office Visit [facility] [address] [place] [phone] Aleah Torres APRN 6 [place], [place] [id number] 01/26/2025 9:00 AM EDT Office Visit [facility] [address] [place] [address] [place] [address] Roberto Castellanos PERSONAL FINANCE INSTRUCTOR 6 [place], [place] [id number] 03/02/2025 10:30 AM EDT Office Visit [facility] [address] [place] [address] Lacey Gupta, PERSONAL FINANCE INSTRUCTOR [address] [place] [address] documented as of this encounter Visit Diagnoses Not on filedocumented in this encounter Care Teams Wood Stock Blank Handler Relationship Specialty Start Date End Date Aleah Torres, PERSONAL FINANCE INSTRUCTOR [address] [place] [address] PCP - General Family Medicine 08/27/22 documented as of this encounter
[2024-12-14 14:39] VITALS: BP 126/78; PULSE 108; RESP 18; TEMP 36.6; O2SAT 98; BMI 47.2
--- NOTE | 2024-12-14 14:41 | XR_ITS ---
FINAL REPORT CLINICAL HISTORY: Nonspecific chest pain COMPARISON: 01/24/2023 FINDINGS: PA and lateral views of the chest were obtained. The cardiac and mediastinal silhouettes are within normal limits. The lungs are clear. There is no pleural effusion or pneumothorax. No acute osseous abnormality is identified. IMPRESSION: No radiographic evidence of acute cardiac or pulmonary disease. Reviewed, Interpreted and Dictated by Mily Meza MD Transcribed by Teena Guillen Authenticated and [facility]
[2024-12-14 14:49] LABS: Hematocrit 41.5 % (37.0-47.0); Hemoglobin 13.7 g/dL (12.2-16.2); Immature Granulocytes % 0.2 %; Mean Corpuscular HGB Conc 33.0 g/dL (31.8-35.4); Mean Corpuscular Hemoglobin 28.9 pg (27.0-31.2); Mean Corpuscular Volume 87.6 fl (81-99); Nucleated Red Blood Cells % 0 %; Platelet Count 300 K/mm3 (142-424); Red Blood Count 4.74 M/mm3 (4.20-5.40); Red Cell Distribution Width-SD 40.5 fL; White Blood Count 5.9 K/mm3 (4.8-10.8)
[2024-12-14] MEDS: ACETAMINOPHEN 500MG TAB 1000 MG PO (14:50)
[2024-12-14] MEDS: BELLADONNA ALKALOIDS 60 ML ML PO (14:50)
[2024-12-14] MEDS: KETOROLAC 30MG/ML VIAL 15 MG IV (14:51)
[2024-12-14] MEDS: 0.9 % SODIUM CHLORIDE 1000ML 1,000 ML 999 ML IV (14:51)
[2024-12-14] MEDS: ONDANSETRON 4MG/2ML VIAL 4 MG IV (14:51)
[2024-12-14 15:00] VITALS: BP 125/104; PULSE 96; RESP 15; O2SAT 98
[2024-12-14 15:03] LABS: Alanine Aminotransferase 30 U/L (12-78); Albumin Level 4.4 g/dl (3.5-5.0); Albumin/Globulin Ratio 1.3 (1.1-1.8); Alkaline Phosphatase 115 U/L (38-126); Anion Gap 9.0 mEq/L (5-15); Aspartate Amino Transferase 34 U/L (14-36); Bilirubin,Total 0.5 mg/dl (0.2-1.3); Blood Urea Nitrogen 13 mg/dl (7-17); Calcium 9.8 mg/dl (8.4-10.2); Carbon Dioxide 29 mmol/L (22.0-30.0); Chloride 104 mmol/L (98-107); Creatinine Clearance Estimated 90 mL/min (50-200); Creatinine,Serum 0.70 mg/dl (0.52-1.04); Estimated Glomerular Filt Rate 100 ml/min (>60); GFR (African American) 121 ML/MIN (>60); Globulin 3.5 g/dL (1.3-3.2); Glucose 92 mg/dl (74-100); Magnesium 1.9 mg/dl (1.6-2.3); Potassium 4.0 mmoL/L (3.5-5.1); Sodium 138 mmol/L (136-145); Total Protein,Serum 7.9 g/dl (6.3-8.2)
[2024-12-14 15:08] LABS: D-Dimer 0.51 ug/mL (0.0-0.5)
[2024-12-14 15:17] LABS: Troponin I < 0.01 ng/ml (0.00-0.034)
[2024-12-14 15:23] LABS: Free Thyroxine Index 3.1 ug/dL (5.93-13.13); T4 (Thyroxine) 9.9 ug/dl (5.53-11.0); Triiodothryronine (T3) Uptake 31 % (23.5-40.5)
[2024-12-14 15:31] VITALS: BP 116/69; PULSE 74; RESP 13; O2SAT 100
[2024-12-14 15:36] LABS: Thyroid Stimulating Hormone 1.74 uIU/mL (0.465-4.68)
[2024-12-14 16:01] VITALS: BP 110/62; PULSE 81; RESP 19; O2SAT 99
[2024-12-14 16:31] VITALS: BP 112/62; PULSE 82; RESP 15; O2SAT 100
[2024-12-14 16:53] LABS: Troponin I < 0.01 ng/ml (0.00-0.034)
[2024-12-14 16:57] VITALS: BP 112/62; PULSE 75; RESP 16; TEMP 36.6; O2SAT 100
== END 2024-12-14 17:06 | disposition home or self-care (01) ==
PROVIDERS: Physician Assistant; Emergency Provider Emergency Medicine; PCP Nurse Practitioner
DX: R07.89 Other chest pain (principal); R11.0 Nausea; R00.0 Tachycardia, unspecified
CPT/HCPCS: 71046; 80053; 83735; 84436; 84443; 84479; 84484; 85025; 85378; 93005; 96361; 96374; 96375; 99285; J1885; J2405; J7030